=== PATIENT | female | born 1950 | race Caucasian/White ===

== ENCOUNTER → 2017-10-05 13:52 | Outpatient (CLI) | payer MEDICARE, OTHER, SELFPAY ==
--- NOTE | 2017-10-05 | DI.MG.S_ITS ---
UNILATERAL RIGHT DIGITAL DIAGNOSTIC MAMMOGRAM 3D/2D WITH ADDITIONAL VIEWS: 10/05/2017 CLINICAL: Additional evaluation requested from prior study. Comparison is made to exams dated: 09/22/2017 mammogram, 09/20/2016 mammogram, and 09/19/2015 mammogram - [facility]. The tissue of the right breast is extremely dense, which lowers the sensitivity of mammography. There is a benign architectural distortion in the right breast middle depth lateral region seen on the craniocaudal view only. This is not seen in additional views. No other significant masses or calcifications are seen in the breast. IMPRESSION: BENIGN There is no mammographic evidence of malignancy. A 1 year screening mammogram is recommended. This exam was interpreted at Station ID: [id number]. NOTE: For mammograms, a report in lay terms will be sent to the patient. Approximately 15% of breast malignancies will not be visualized mammographically. In the management of a palpable breast mass, a negative mammogram must not discourage biopsy of a clinically suspicious lesion. Electronically Signed By: Jacob salcedo/anup:10/05/2017 14:28:40 letter sent: Normal Exam ACR BI-RADS Category 2: Benign Finding(s) [id number]
== END ==
PROVIDERS: Family Provider Family Medicine; PCP Family Medicine; Visit Provider Family Medicine
DX: R92.2 Inconclusive mammogram (principal)
CPT/HCPCS: 77065; G0279

== ENCOUNTER 2017-12-06 08:15 | Outpatient (RCR) | payer MEDICARE, OTHER, SELFPAY ==
--- NOTE | 2017-09-19 16:06 | PT.OTN ---
Transition note: On September 13, 2017 our therapy services consisting of Speech, Occupational, and Physical Therapy transitioned from the [employer] electronic documentation system to a new [employer] electronic documentation system.?? All documentation prior to September 13 can be found under [employer] saved data. From September 13 forward all medical record documentation will be in [employer] 6.1. Current Diagnoses Low back pain (09/19/17
--- NOTE | 2017-09-20 08:37 | PT.OIE ---
Current Diagnoses Low back pain (09/19/17) Physical Therapy Initial Evaluation PT-OP-A Visit Information Start: 09/19/17 07:25 Freq: Status: Active Protocol: Activity Type Activity Date Activity User E-Sign Co-Sign Detail Recorded Client Recorded Date Recorded By Document 09/19/17 09:42 [facility] [id number] 09/19/17 09:43 [facility] 09/19/17 09:42 Out-Patient Physical Therapy Visit Information [Visit Information] -Visit Type Initial Evaluation -Visit Start Time 09:05 -Visit Stop Time 09:55 -Total Visit Minutes 55 -Visit Number 1 -Number of LIQUEFACTION PLANT OPERATOR Visits 0 [Evaluation Information] -Evaluation Date 09/19/17 PT-OP-B Current Condition Start: 09/19/17 07:25 Freq: Status: Active Protocol: Activity Type Activity Date Activity User E-Sign Co-Sign Detail Recorded Client Recorded Date Recorded By Document 09/19/17 09:00 [facility] [email or web address] 09/20/17 08:32 [facility] 09/19/17 09:00 Current Condition [History of Current Condition] -Onset Date 2.5 months ago -Current Complaints LBP pain around LS region -History of Current Condition gradual onset with aching on and off. She got a X-ray, which showed arthrtis and has found tylenol arthritis helps . hx of R hip bursitis -Prior Treatments and Tests X-ray [Treatment Goals] -Patient/Caregiver Goals increase flexibility & dec pain [Prior Functional Status] -Baseline Function- Gait walks about 2 miles a day without pain [Current Functional Impairments ( Reported)] -Functional Limitations- Mobility/Gait Pain at end of day with walks and sometimes avoids walking d/t pain PT-OP-C Subjective Start: 09/19/17 07:25 Freq: Status: Active Protocol: Activity Type Activity Date Activity User E-Sign Co-Sign Detail Recorded Client Recorded Date Recorded By Document 09/19/17 09:32 [facility] [email or web address] 09/20/17 08:36 [facility] 09/19/17 09:32 Patient Questionnaires [Oswestry Low Back Index] -Oswestry Impairment 1 to 19% Impaired (Score 1-19) OP-PT Pain Assessment [Pain Assessment Grid] -Paper Pain Assessment Grid Completed Yes [Location] Bilateral Back -Pain Location Details LS region -Intensity 4 -Description- Other 5/10 at worst -Pain Aggravating Factors Standing Sitting Walking -Other Pain Aggravating Factors aches at night when trying to sleep -Pain Alleviating Factors Heat Medication Massage [Home Pain Medication Use] -Pain Medications Used Yes: Tylenol Arthritis PT-OP-G Mobility & Gait Start: 09/19/17 07:25 Freq: Status: Active Protocol: Activity Type Activity Date Activity User E-Sign Co-Sign Detail Recorded Client Recorded Date Recorded By Document 09/19/17 09:09 [facility] [id number] 09/19/17 09:38 [facility] 09/19/17 09:09 OP Gait Assessment [Comments] -Gait Comments Dec post depression R side & ant elevation L PT-OP-J Posture/Palpation/Skin Start: 09/20/17 08:32 Freq: Status: Active Protocol: Activity Type Activity Date Activity User E-Sign Co-Sign Detail Recorded Client Recorded Date Recorded By Document 09/19/17 09:32 [facility] [email or web address] 09/20/17 08:36 [facility] 09/19/17 09:32 Posture Evaluation [Comments] -Posture Comments Locked knees creating hinging at LS spine & TL junction mildly , mild fwd head /shoulders Palpation Assessment [Location] One -Palpation Location Lumbar -Palpation Findings Soft Tissue Tightness Tenderness -Palpation Details QL & ES & glutes PT-OP-K Range of Motion Start: 09/19/17 07:25 Freq: Status: Active Protocol: Activity Type Activity Date Activity User E-Sign Co-Sign Detail Recorded Client Recorded Date Recorded By Document 09/19/17 09:09 [facility] [id number] 09/19/17 09:38 [facility] 09/19/17 09:09 Lumbar Spine Range of Motion [Lumbar Spine] Active Degrees -Testing Position Sitting -Flexion 70 -Extension 25 -Rotation Left 30 -Rotation Right 30 -Lateral Flexion Left 25 -Lateral Flexion Right 25 PT-OP-L Special Tests Start: 09/19/17 07:25 Freq: Status: Active Protocol: Activity Type Activity Date Activity User E-Sign Co-Sign Detail Recorded Client Recorded Date Recorded By Document 09/19/17 09:09 [facility] [id number] 09/19/17 09:38 [facility] 09/19/17 09:09 Special Tests [Lumbar Spine Special Tests] Other- 1 -Test Results 2/5 -Comments EFT Vertical Spine Loading -Test Results 1/5 -Comments VCT Straight Leg Raise -Test Results HS tightness (B ) Slump -Test Results neg -Comments ext sit neg PT-OP-M Strength Start: 09/19/17 07:25 Freq: Status: Active Protocol: Activity Type Activity Date Activity User E-Sign Co-Sign Detail Recorded Client Recorded Date Recorded By Document 09/19/17 09:09 [facility] [id number] 09/19/17 09:38 [facility] 09/19/17 09:09 Hip Strength [Hip Manual Muscle Testing] Right -Flexion (L2) 4+ Good+ -Extension (S1) 4- Good- -Abduction 4- Good- -External Rotation 4 Good -Internal Rotation 4+ Good+ -Comments knee &ankle WNL (B) Left -Flexion (L2) 4 Good -Abduction 4 Good -Adduction 4- Good- -External Rotation 4+ Good+ -Internal Rotation 4+ Good+ PT-OP-Q Treatments Start: 09/19/17 07:25 Freq: Status: Active Protocol: Activity Type Activity Date Activity User E-Sign Co-Sign Detail Recorded Client Recorded Date Recorded By Document 09/19/17 09:00 [facility] [email or web address] 09/20/17 08:32 [facility] 09/19/17 09:00 Therapeutic Exercises [Supine Exercises] 4 -Supine Exercise Name piriformis stretch -Side bilateral -Reps/Minutes 30 sec 3 -Supine Exercise Name B hip flex w/ iso UE press ( flex abdominal series) -Reps/Minutes 20 sec 2 -Supine Exercise Name Josiah test stretch -Side bilateral -Reps/Minutes 30 sec 1 -Supine Exercise Name HS stretch -Side bilateral -Reps/Minutes 30 sec Self-Care/Home Management Treatment [Activities] -Self-Care/Home Management Activities unlock knees in standing to prevent LS ext PT-OP-R Modalities Start: 09/19/17 07:25 Freq: Status: Active Protocol: Activity Type Activity Date Activity User E-Sign Co-Sign Detail Recorded Client Recorded Date Recorded By Document 09/19/17 09:00 [facility] [email or web address] 09/20/17 08:32 [facility] 09/19/17 09:00 Hot Pack/Cold Pack [Treatment] Hot Pack -Location lumbar -Patient Position Hooklying -Treatment Duration (minutes) 15 PT-OP-T Assessment and Plan Start: 09/19/17 07:25 Freq: Status: Active Protocol: Activity Type Activity Date Activity User E-Sign Co-Sign Detail Recorded Client Recorded Date Recorded By Document 09/19/17 09:00 [facility] [email or web address] 09/20/17 08:32 [facility] 09/19/17 09:00 Physical Therapy Assessment [Rehab Potential] -Rehabilitation Potential Excellent [Evaluation Complexity] -Number of Personal Factors/ 1-2 Comorbidities -Number of Body Systems Impaired 4 or More -Clinical Presentation at Evaluation Stable [Impairments] -Impairments Pain Posture Soft Tissue Mobility Strength [Goals] Four -Impairment LE strength -Packaging Assembler Goal (LTG) Pt will have 5/ 5 strength to allow pt to do all normal daily activities without pain. -LTG Duration 2 months Three -Impairment pain at worst 5 /10 -Short Term Goal (STG) 3/10 at worst -STG Duration 4 weeks -Packaging Assembler Goal (LTG) 0/10 -LTG Duration 2 months Two -Impairment posture -Short Term Goal (STG) Pt will present with good seated and standing posture. -STG Duration 4 weeks One -Impairment unable to sit or stand extended or walk extended or when trying to sleep -Short Term Goal (STG) No pain when trying to sleep -STG Duration 4 weeks -Intermediate Goal (LTG) Pt will be able to stand, sit and walk exteded without pain. -LTG Duration 2 months Physical Therapy Plan [Frequency and Duration] -Frequency of Treatment 2x/Week -Duration of Treatment 60 -Plan of Care Start Date 09/19/17 -Plan of Care End Date 11/19/17 [Therapeutic Interventions] -Therapeutic Interventions Aquatic Therapy Balance Training Gait Training Home Exercise Program Joint Mobilizations Manual Therapy Self-Care/Home Management Soft Tissue Mobilization Taping Therapeutic Exercises -Modalities Cold Pack/Ice Massage Electric Stimulation Hot Packs Traction- Mechanical Ultrasound [Next Visit Focus/Plan] -Next Visit Plan Supine core stability exercises & STM to lumbar region. Provider Signature Date
--- NOTE | 2017-09-20 08:38 | PT.OPPOC ---
Current Diagnoses Low back pain (09/19/17) Plan Of Care PT-OP-T Assessment and Plan Start: 09/19/17 07:25 Freq: Status: Active Protocol: Activity Type Activity Date Activity User E-Sign Co-Sign Detail Recorded Client Recorded Date Recorded By Document 09/19/17 09:00 [facility] [email or web address] 09/20/17 08:32 [facility] 09/19/17 09:00 Physical Therapy Assessment [Rehab Potential] -Rehabilitation Potential Excellent [Evaluation Complexity] -Number of Personal Factors/ 1-2 Comorbidities -Number of Body Systems Impaired 4 or More -Clinical Presentation at Evaluation Stable [Impairments] -Impairments Pain Posture Soft Tissue Mobility Strength [Goals] Four -Impairment LE strength -Sheet Metal Shop Foreman Goal (LTG) Pt will have 5/ 5 strength to allow pt to do all normal daily activities without pain. -LTG Duration 2 months Three -Impairment pain at worst 5 /10 -Short Term Goal (STG) 3/10 at worst -STG Duration 4 weeks -Sheet Metal Shop Foreman Goal (LTG) 0/10 -LTG Duration 2 months Two -Impairment posture -Short Term Goal (STG) Pt will present with good seated and standing posture. -STG Duration 4 weeks One -Impairment unable to sit or stand extended or walk extended or when trying to sleep -Short Term Goal (STG) No pain when trying to sleep -STG Duration 4 weeks -Sheet Metal Shop Foreman Goal (LTG) Pt will be able to stand, sit and walk exteded without pain. -LTG Duration 2 months Physical Therapy Plan [Frequency and Duration] -Frequency of Treatment 2x/Week -Duration of Treatment 60 -Plan of Care Start Date 09/19/17 -Plan of Care End Date 11/19/17 [Therapeutic Interventions] -Therapeutic Interventions Aquatic Therapy Balance Training Gait Training Home Exercise Program Joint Mobilizations Manual Therapy Self-Care/Home Management Soft Tissue Mobilization Taping Therapeutic Exercises -Modalities Cold Pack/Ice Massage Electric Stimulation Hot Packs Traction- Mechanical Ultrasound [Next Visit Focus/Plan] -Next Visit Plan Supine core stability exercises & STM to lumbar region. Plan of Care Dates Plan of Care Start Date 09/19/17 Plan of Care End Date 11/19/17 Provider Visit Care Team Role Provider Type Billie Echeverria MD Attending Provider Physician Family Provider Primary Care Provider Specialty: Family Practice Address: [address] [place] [address], [phone] Email: Please Sign and Return: I have reviewed this Plan of Care and certify that the skilled therapy services above are required to meet the patient???s needs. Physician Signature Date Printed Name and Credentials
--- NOTE | 2017-09-26 10:33 | PT.OTN ---
Current Diagnoses Low back pain (09/26/17) Physical Therapy Treatment Note PT-OP-A Visit Information Start: 09/19/17 07:25 Freq: Status: Active Protocol: Document 09/26/17 09:48 [facility] (Rec: 09/26/17 10:32 [facility] [id number]) Out-Patient Physical Therapy Visit Information Visit Information Visit Type Treatment Note Visit Start Time 09:45 Visit Stop Time 10:30 Total Visit Minutes 45 Visit Number 2 Number of CORROSION TECHNICIAN Visits 0 PT-OP-B Current Condition Start: 09/19/17 07:25 Freq: Status: Active Protocol: Document 09/19/17 09:00 [facility] (Rec: 09/20/17 08:32 [facility] [id number]) Current Condition History of Current Condition Onset Date 2.5 months ago Current Complaints LBP pain around LS region History of Current Condition gradual onset with aching on and off. She got a X-ray, which showed arthrtis and has found tylenol arthritis helps. hx of R hip bursitis Prior Treatments and Tests X-ray Treatment Goals Patient/Caregiver Goals increase flexibility & dec pain Prior Functional Status Baseline Function- Gait walks about 2 miles a day without pain Current Functional Impairments (Reported) Functional Limitations- Mobility/Gait Pain at end of day with walks and sometimes avoids walking d /t pain PT-OP-C Subjective Start: 09/19/17 07:25 Freq: Status: Active Protocol: Document 09/26/17 09:48 [facility] (Rec: 09/26/17 10:32 [facility] [id number]) OP-PT Subjective Patient Comments Patient Comments Pt reports she has not had to take any pain meds in past week. Notes compliance w/HEP. PT-OP-G Mobility & Gait Start: 09/19/17 07:25 Freq: Status: Active Protocol: Document 09/19/17 09:09 [facility] (Rec: 09/19/17 09:38 [facility] [id number]) OP Gait Assessment Comments Gait Comments Dec post depression R side & ant elevation L PT-OP-J Posture/Palpation/Skin Start: 09/20/17 08:32 Freq: Status: Active Protocol: Document 09/19/17 09:32 [facility] (Rec: 09/20/17 08:36 [facility] [email or web address]) Posture Evaluation Comments Posture Comments Locked knees creating hinging at LS spine & TL junction mildly, mild fwd head/ shoulders Palpation Assessment Location One Palpation Location Lumbar Palpation Findings Soft Tissue Tightness Tenderness Palpation Details QL & ES & glutes PT-OP-K Range of Motion Start: 09/19/17 07:25 Freq: Status: Active Protocol: Document 09/19/17 09:09 [facility] (Rec: 09/19/17 09:38 [facility] [id number]) Lumbar Spine Range of Motion Lumbar Spine Active Degrees Testing Position Sitting Flexion 70 Extension 25 Rotation Left 30 Rotation Right 30 Lateral Flexion Left 25 Lateral Flexion Right 25 PT-OP-L Special Tests Start: 09/19/17 07:25 Freq: Status: Active Protocol: Document 09/19/17 09:09 [facility] (Rec: 09/19/17 09:38 [facility] [id number]) Special Tests Lumbar Spine Special Tests Other- 1 Test Results 2/5 Comments EFT Vertical Spine Loading Test Results 1/5 Comments VCT Straight Leg Raise Test Results HS tightness (B) Slump Test Results neg Comments ext sit neg PT-OP-M Strength Start: 09/19/17 07:25 Freq: Status: Active Protocol: Document 09/19/17 09:09 [facility] (Rec: 09/19/17 09:38 [facility] [id number]) Hip Strength Hip Manual Muscle Testing Right Flexion (L2) 4+ Good+ Extension (S1) 4- Good- Abduction 4- Good- External Rotation 4 Good Internal Rotation 4+ Good+ Comments knee &ankle WNL (B) Left Flexion (L2) 4 Good Abduction 4 Good Adduction 4- Good- External Rotation 4+ Good+ Internal Rotation 4+ Good+ PT-OP-Q Treatments Start: 09/19/17 07:25 Freq: Status: Active Protocol: Document 09/26/17 09:48 [facility] (Rec: 09/26/17 10:32 [facility] [id number]) Therapeutic Exercises Supine Exercises 6 Supine Exercise Name bridge w/o arms Reps/Minutes 2x10 5 Supine Exercise Name scissor bent knee Reps/Minutes 2x10 3 Supine Exercise Name B hip flex w/iso UE press ( flex abdominal series) Reps/Minutes 20 sec Sidelying Exercises 1 Sidelying Exercise Name hip abd Reps/Minutes 2x10 Standing Exercises 2 Standing Exercise Name wall posture w/90/90ER Reps/Minutes 10 1 Standing Exercise Name wall squat Reps/Minutes 2x10 Manual Therapy Treatment Soft Tissue Mobilization 1 Body Location QL & ES Mobilization Type Rolling Intensity/Depth Moderate Joint Mobilizations 3 Joint innominate Direction caudal L & ER B FM 2 Joint sacrum Direction PA & caudal FM 1 Joint hip Direction hip on axis ER FM L PT-OP-R Modalities Start: 09/19/17 07:25 Freq: Status: Active Protocol: Document 09/19/17 09:00 [facility] (Rec: 09/20/17 08:32 [facility] [id number]) Hot Pack/Cold Pack Treatment Hot Pack Location lumbar Patient Position Hooklying Treatment Duration (minutes) 15 PT-OP-T Assessment and Plan Start: 09/19/17 07:25 Freq: Status: Active Protocol: Document 09/26/17 09:48 [facility] (Rec: 09/26/17 10:32 [facility] [id number]) Physical Therapy Assessment Assessment Summary Assessment Pt able to tolerate new exercises with cueing for pelvic neutral & maintaining neutral spine. Reported mobilizations felt good. Physical Therapy Plan Frequency and Duration Frequency of Treatment 2x/Week Plan of Care Start Date 09/19/17 Plan of Care End Date 11/19/17 Next Visit Focus/Plan Next Visit Plan Cont to advance core
--- NOTE | 2017-09-29 10:32 | PT.OTN ---
Current Diagnoses Low back pain (09/29/17) Physical Therapy Treatment Note PT-OP-A Visit Information Start: 09/19/17 07:25 Freq: Status: Active Protocol: Document 09/29/17 09:46 [facility] (Rec: 09/29/17 10:32 [facility] [id number]) Out-Patient Physical Therapy Visit Information Visit Information Visit Type Treatment Note Visit Start Time 09:45 Visit Stop Time 10:30 Total Visit Minutes 45 Visit Number 3 Number of DEDICATED OWNER OPERATOR Visits 0 PT-OP-B Current Condition Start: 09/19/17 07:25 Freq: Status: Active Protocol: Document 09/19/17 09:00 [facility] (Rec: 09/20/17 08:32 [facility] [id number]) Current Condition History of Current Condition Onset Date 2.5 months ago Current Complaints LBP pain around LS region History of Current Condition gradual onset with aching on and off. She got a X-ray, which showed arthrtis and has found tylenol arthritis helps. hx of R hip bursitis Prior Treatments and Tests X-ray Treatment Goals Patient/Caregiver Goals increase flexibility & dec pain Prior Functional Status Baseline Function- Gait walks about 2 miles a day without pain Current Functional Impairments (Reported) Functional Limitations- Mobility/Gait Pain at end of day with walks and sometimes avoids walking d /t pain PT-OP-C Subjective Start: 09/19/17 07:25 Freq: Status: Active Protocol: Document 09/29/17 09:46 [facility] (Rec: 09/29/17 10:32 [facility] [id number]) OP-PT Subjective Patient Comments Patient Comments Soreness after last session & yesterday w/ 2 mile walk & gardening yesterday PT-OP-G Mobility & Gait Start: 09/19/17 07:25 Freq: Status: Active Protocol: Document 09/19/17 09:09 [facility] (Rec: 09/19/17 09:38 [facility] [id number]) OP Gait Assessment Comments Gait Comments Dec post depression R side & ant elevation L PT-OP-J Posture/Palpation/Skin Start: 09/20/17 08:32 Freq: Status: Active Protocol: Document 09/19/17 09:32 [facility] (Rec: 09/20/17 08:36 [facility] [id number]) Posture Evaluation Comments Posture Comments Locked knees creating hinging at LS spine & TL junction mildly, mild fwd head/ shoulders Palpation Assessment Location One Palpation Location Lumbar Palpation Findings Soft Tissue Tightness Tenderness Palpation Details QL & ES & glutes PT-OP-K Range of Motion Start: 09/19/17 07:25 Freq: Status: Active Protocol: Document 09/19/17 09:09 [facility] (Rec: 09/19/17 09:38 [facility] [id number]) Lumbar Spine Range of Motion Lumbar Spine Active Degrees Testing Position Sitting Flexion 70 Extension 25 Rotation Left 30 Rotation Right 30 Lateral Flexion Left 25 Lateral Flexion Right 25 PT-OP-L Special Tests Start: 09/19/17 07:25 Freq: Status: Active Protocol: Document 09/19/17 09:09 [facility] (Rec: 09/19/17 09:38 [facility] [id number]) Special Tests Lumbar Spine Special Tests Other- 1 Test Results 2/5 Comments EFT Vertical Spine Loading Test Results 1/5 Comments VCT Straight Leg Raise Test Results HS tightness (B) Slump Test Results neg Comments ext sit neg PT-OP-M Strength Start: 09/19/17 07:25 Freq: Status: Active Protocol: Document 09/19/17 09:09 [facility] (Rec: 09/19/17 09:38 [facility] [id number]) Hip Strength Hip Manual Muscle Testing Right Flexion (L2) 4+ Good+ Extension (S1) 4- Good- Abduction 4- Good- External Rotation 4 Good Internal Rotation 4+ Good+ Comments knee &ankle WNL (B) Left Flexion (L2) 4 Good Abduction 4 Good Adduction 4- Good- External Rotation 4+ Good+ Internal Rotation 4+ Good+ PT-OP-Q Treatments Start: 09/19/17 07:25 Freq: Status: Active Protocol: Document 09/29/17 09:46 [facility] (Rec: 09/29/17 10:32 [facility] [id number]) Therapeutic Exercises Supine Exercises 6 Supine Exercise Name bridge with alt LE march Reps/Minutes 2x10 5 Supine Exercise Name scissor bent knee Reps/Minutes 2x10 3 Supine Exercise Name B hip flex w/iso UE press ( flex abdominal series) Reps/Minutes 20 sec Sidelying Exercises 1 Sidelying Exercise Name hip abd Reps/Minutes 2x10 Standing Exercises 3 Standing Exercise Name squat Reps/Minutes 2x10 Comments cues for form 2 Standing Exercise Name wall posture w/90/90ER Reps/Minutes 10 Therapeutic Activity Therapeutic Activity 1 Comments Lifting mechanics w/min cueing required Manual Therapy Treatment Soft Tissue Mobilization 1 Body Location QL & ES Mobilization Type Rolling Intensity/Depth Moderate Joint Mobilizations 3 Joint innominate Direction caudal L & ER & ext B FM 2 Joint sacrum Direction PA & caudal FM PT-OP-R Modalities Start: 09/19/17 07:25 Freq: Status: Active Protocol: Document 09/29/17 09:46 [facility] (Rec: 09/29/17 10:32 [facility] [id number]) Hot Pack/Cold Pack Treatment Hot Pack Location lumbar Patient Position Hooklying Treatment Duration (minutes) 15 PT-OP-T Assessment and Plan Start: 09/19/17 07:25 Freq: Status: Active Protocol: Document 09/29/17 09:46 [facility] (Rec: 09/29/17 10:32 [facility] [id number]) Physical Therapy Assessment Assessment Summary Assessment Pt required min cueing for s/l abd and wall posture. Able to progress to marching bridges without pain. Some soreness appears to be DOMs from some exercises & gardening. Physical Therapy Plan Frequency and Duration Frequency of Treatment 2x/Week Plan of Care Start Date 09/19/17 Plan of Care End Date 11/19/17 Next Visit Focus/Plan Next Visit Plan Foam roll
--- NOTE | 2017-10-03 11:18 | PT.OTN ---
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 She got a X-ray, which showed arthrtis and has found tylenol arthritis helps. hx of R hip bursitis Prior Treatments and Tests X-ray Treatment Goals Patient/Caregiver Goals increase flexibility & dec pain Prior Functional Status Baseline Function- Gait walks about 2 miles a day without pain Current Functional Impairments (Reported) Functional Limitations- Mobility/Gait Pain at end of day with walks and sometimes avoids walking d /t pain PT-OP-C Subjective Start: 09/19/17 07:25 Freq: Status: Active Protocol: Document 10/03/17 10:36 [facility] (Rec: 10/03/17 11:18 [facility] [id number]) OP-PT Subjective Patient Comments Patient Comments Pt reports she was sore for about 1 day after last session PT-OP-G Mobility & Gait Start: 09/19/17 07:25 Freq: Status: Active Protocol: Document 09/19/17 09:09 [facility] (Rec: 09/19/17 09:38 [facility] [id number]) OP Gait Assessment Comments Gait Comments Dec post depression R side & ant elevation L PT-OP-J Posture/Palpation/Skin Start: 09/20/17 08:32 Freq: Status: Active Protocol: Document 09/19/17 09:32 [facility] (Rec: 09/20/17 08:36 [facility] [id number]) Posture Evaluation Comments Posture Comments Locked knees creating hinging at LS spine & TL junction mildly, mild fwd head/ shoulders Palpation Assessment Location One Palpation Location Lumbar Palpation Findings Soft Tissue Tightness Tenderness Palpation Details QL & ES & glutes PT-OP-K Range of Motion Start: 09/19/17 07:25 Freq: Status: Active Protocol: Document 09/19/17 09:09 [facility] (Rec: 09/19/17 09:38 [facility] [id number]) Lumbar Spine Range of Motion Lumbar Spine Active Degrees Testing Position Sitting Flexion 70 Extension 25 Rotation Left 30 Rotation Right 30 Lateral Flexion Left 25 Lateral Flexion Right 25 PT-OP-L Special Tests Start: 09/19/17 07:25 Freq: Status: Active Protocol: Document 09/19/17 09:09 [facility] (Rec: 09/19/17 09:38 [facility] [id number]) Special Tests Lumbar Spine Special Tests Other- 1 Test Results 2/5 Comments EFT Vertical Spine Loading Test Results 1/5 Comments VCT Straight Leg Raise Test Results HS tightness (B) Slump Test Results neg Comments ext sit neg PT-OP-M Strength Start: 09/19/17 07:25 Freq: Status: Active Protocol: Document 09/19/17 09:09 [facility] (Rec: 09/19/17 09:38 [facility] [id number]) Hip Strength Hip Manual Muscle Testing Right Flexion (L2) 4+ Good+ Extension (S1) 4- Good- Abduction 4- Good- External Rotation 4 Good Internal Rotation 4+ Good+ Comments knee &ankle WNL (B) Left Flexion (L2) 4 Good Abduction 4 Good Adduction 4- Good- External Rotation 4+ Good+ Internal Rotation 4+ Good+ PT-OP-Q Treatments Start: 09/19/17 07:25 Freq: Status: Active Protocol: Document 10/03/17 10:36 [facility] (Rec: 10/03/17 11:18 [facility] [id number]) Gym Equipment Therapeutic Ball 4 Exercise Details pelvic circles Ball Size/Color 65cm Body Position Sitting Reps/Duration 10 B 2 Exercise Details hip flex Ball Size/Color 65 cm Body Position Sitting Reps/Duration 10 1 Exercise Details knee ext Ball Size/Color 65 cm Body Position Sitting Therapeutic Exercises Supine Exercises 8 Supine Exercise Name foam roll marching to bugs Reps/Minutes 10 7 Supine Exercise Name foam roll: Habd, abd, flex Reps/Minutes 10 Other Exercises 1 Other Exercise Name quadruped hip ext Side bilateral Reps/Minutes 10 Comments manual cueing Manual Therapy Treatment Soft Tissue Mobilization 1 Body Location QL & ES Mobilization Type Rolling Intensity/Depth Moderate Joint Mobilizations 3 Joint innominate Direction caudal L & ER & ext B FM 2 Joint sacrum Direction PA & caudal FM 1 Joint hip Direction hip on axis ER FM L PT-OP-R Modalities Start: 09/19/17 07:25 Freq: Status: Active Protocol: Document 10/03/17 10:36 [facility] (Rec: 10/03/17 11:18 [facility] [id number]) Hot Pack/Cold Pack Treatment Hot Pack Location lumbar Patient Position Hooklying Treatment Duration (minutes) 15 PT-OP-T Assessment and Plan Start: 09/19/17 07:25 Freq: Status: Active Protocol: Document 10/03/17 10:36 [facility] (Rec: 10/03/17 11:18 [facility] [id number]) Physical Therapy Assessment Assessment Summary Assessment Pt required significant cueing & tactile positioning to help with proper technique with quadruped ext. Pt had difficulty balancing on foam roll for exercises. Improved soft tissue mobility in LS region. Physical Therapy Plan Frequency and Duration Frequency of Treatment 2x/Week Plan of Care Start Date 09/19/17 Plan of Care End Date 11/19/17 Next Visit Focus/Plan Next Visit Plan Advance core Please Sign and Return: I have reviewed this Plan of Care and certify that the skilled therapy services above are required to meet the patient???s needs. Physician Signature Date Printed Name and Credentials Clinical Instructor Signature Printed Name and Credentials
--- NOTE | 2017-10-13 09:50 | PT.OTN ---
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 She got a X-ray, which showed arthrtis and has found tylenol arthritis helps. hx of R hip bursitis Prior Treatments and Tests X-ray Treatment Goals Patient/Caregiver Goals increase flexibility & dec pain Prior Functional Status Baseline Function- Gait walks about 2 miles a day without pain Current Functional Impairments (Reported) Functional Limitations- Mobility/Gait Pain at end of day with walks and sometimes avoids walking d /t pain PT-OP-C Subjective Start: 09/19/17 07:25 Freq: Status: Active Protocol: Document 10/13/17 09:01 [facility] (Rec: 10/13/17 09:50 [facility] [id number]) OP-PT Subjective Patient Comments Patient Comments Reports she has only had to take tylenol once this week. Reports she went to spin class and did walking that day. PT-OP-G Mobility & Gait Start: 09/19/17 07:25 Freq: Status: Active Protocol: Document 09/19/17 09:09 [facility] (Rec: 09/19/17 09:38 [facility] [id number]) OP Gait Assessment Comments Gait Comments Dec post depression R side & ant elevation L PT-OP-J Posture/Palpation/Skin Start: 09/20/17 08:32 Freq: Status: Active Protocol: Document 09/19/17 09:32 [facility] (Rec: 09/20/17 08:36 [facility] [id number]) Posture Evaluation Comments Posture Comments Locked knees creating hinging at LS spine & TL junction mildly, mild fwd head/ shoulders Palpation Assessment Location One Palpation Location Lumbar Palpation Findings Soft Tissue Tightness Tenderness Palpation Details QL & ES & glutes PT-OP-K Range of Motion Start: 09/19/17 07:25 Freq: Status: Active Protocol: Document 09/19/17 09:09 [facility] (Rec: 09/19/17 09:38 [facility] [id number]) Lumbar Spine Range of Motion Lumbar Spine Active Degrees Testing Position Sitting Flexion 70 Extension 25 Rotation Left 30 Rotation Right 30 Lateral Flexion Left 25 Lateral Flexion Right 25 PT-OP-L Special Tests Start: 09/19/17 07:25 Freq: Status: Active Protocol: Document 09/19/17 09:09 [facility] (Rec: 09/19/17 09:38 [facility] [id number]) Special Tests Lumbar Spine Special Tests Other- 1 Test Results 2/5 Comments EFT Vertical Spine Loading Test Results 1/5 Comments VCT Straight Leg Raise Test Results HS tightness (B) Slump Test Results neg Comments ext sit neg PT-OP-M Strength Start: 09/19/17 07:25 Freq: Status: Active Protocol: Document 09/19/17 09:09 [facility] (Rec: 09/19/17 09:38 [facility] [id number]) Hip Strength Hip Manual Muscle Testing Right Flexion (L2) 4+ Good+ Extension (S1) 4- Good- Abduction 4- Good- External Rotation 4 Good Internal Rotation 4+ Good+ Comments knee &ankle WNL (B) Left Flexion (L2) 4 Good Abduction 4 Good Adduction 4- Good- External Rotation 4+ Good+ Internal Rotation 4+ Good+ PT-OP-Q Treatments Start: 09/19/17 07:25 Freq: Status: Active Protocol: Document 10/13/17 09:01 [facility] (Rec: 10/13/17 09:50 [facility] [id number]) Gym Equipment Therapeutic Ball 4 Exercise Details pelvic circles Ball Size/Color 65cm Body Position Sitting Reps/Duration 10 B 2 Exercise Details hip flex w/alt shoulder flex Ball Size/Color 65 cm Body Position Sitting Reps/Duration 10 1 Exercise Details knee ext Ball Size/Color 65 cm Body Position Sitting Comments w/shoulders at 90 deg Therapeutic Exercises Supine Exercises 8 Supine Exercise Name foam roll marching to bugs Reps/Minutes 10 7 Supine Exercise Name foam roll: Habd, abd, flex Reps/Minutes 10 Other Exercises 2 Other Exercise Name Alt UE/LE lifts quadruped Reps/Minutes 10 1 Other Exercise Name quadruped hip ext Side bilateral Reps/Minutes 10 Comments manual cueing Manual Therapy Treatment Soft Tissue Mobilization 1 Body Location QL & ES Mobilization Type Rolling Intensity/Depth Moderate Joint Mobilizations 3 Joint innominate Direction caudal L & ER & ext B FM 2 Joint sacrum Direction PA & caudal FM 1 Joint hip Direction hip on axis ER FM L PT-OP-R Modalities Start: 09/19/17 07:25 Freq: Status: Active Protocol: Document 10/13/17 09:01 [facility] (Rec: 10/13/17 09:50 [facility] [id number]) Hot Pack/Cold Pack Treatment Hot Pack Location lumbar Patient Position Hooklying Treatment Duration (minutes) 15 PT-OP-T Assessment and Plan Start: 09/19/17 07:25 Freq: Status: Active Protocol: Document 10/13/17 09:01 [facility] (Rec: 10/13/17 09:50 [facility] [id number]) Physical Therapy Assessment Assessment Summary Assessment Pt had improved positioning today on ball and quadruped. Still diffiulty with balance on foam roll Physical Therapy Plan Frequency and Duration Frequency of Treatment 2x/Week Plan of Care Start Date 09/19/17 Plan of Care End Date 11/19/17 Next Visit Focus/Plan Next Note Type Treatment Note Next Visit Plan Advance core Please Sign and Return: I have reviewed this Plan of Care and certify that the skilled therapy services above are required to meet the patient???s needs. Physician Signature Date Printed Name and Credentials Clinical Instructor Signature Printed Name and Credentials
--- NOTE | 2017-10-19 17:25 | PT.OTN ---
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 She got a X-ray, which showed arthrtis and has found tylenol arthritis helps. hx of R hip bursitis Prior Treatments and Tests X-ray Treatment Goals Patient/Caregiver Goals increase flexibility & dec pain Prior Functional Status Baseline Function- Gait walks about 2 miles a day without pain Current Functional Impairments (Reported) Functional Limitations- Mobility/Gait Pain at end of day with walks and sometimes avoids walking d /t pain PT-OP-C Subjective Start: 09/19/17 07:25 Freq: Status: Active Protocol: Document 10/19/17 10:30 [facility] (Rec: 10/19/17 17:23 [facility] [id number]) OP-PT Subjective Patient Comments Patient Comments Reports she is noticing feeling in general fatigued in the evening. PT-OP-G Mobility & Gait Start: 09/19/17 07:25 Freq: Status: Active Protocol: Document 09/19/17 09:09 [facility] (Rec: 09/19/17 09:38 [facility] [id number]) OP Gait Assessment Comments Gait Comments Dec post depression R side & ant elevation L PT-OP-J Posture/Palpation/Skin Start: 09/20/17 08:32 Freq: Status: Active Protocol: Document 09/19/17 09:32 [facility] (Rec: 09/20/17 08:36 [facility] [id number]) Posture Evaluation Comments Posture Comments Locked knees creating hinging at LS spine & TL junction mildly, mild fwd head/ shoulders Palpation Assessment Location One Palpation Location Lumbar Palpation Findings Soft Tissue Tightness Tenderness Palpation Details QL & ES & glutes PT-OP-K Range of Motion Start: 09/19/17 07:25 Freq: Status: Active Protocol: Document 09/19/17 09:09 [facility] (Rec: 09/19/17 09:38 [facility] [id number]) Lumbar Spine Range of Motion Lumbar Spine Active Degrees Testing Position Sitting Flexion 70 Extension 25 Rotation Left 30 Rotation Right 30 Lateral Flexion Left 25 Lateral Flexion Right 25 PT-OP-L Special Tests Start: 09/19/17 07:25 Freq: Status: Active Protocol: Document 09/19/17 09:09 [facility] (Rec: 09/19/17 09:38 [facility] [id number]) Special Tests Lumbar Spine Special Tests Other- 1 Test Results 2/5 Comments EFT Vertical Spine Loading Test Results 1/5 Comments VCT Straight Leg Raise Test Results HS tightness (B) Slump Test Results neg Comments ext sit neg PT-OP-M Strength Start: 09/19/17 07:25 Freq: Status: Active Protocol: Document 09/19/17 09:09 [facility] (Rec: 09/19/17 09:38 [facility] [id number]) Hip Strength Hip Manual Muscle Testing Right Flexion (L2) 4+ Good+ Extension (S1) 4- Good- Abduction 4- Good- External Rotation 4 Good Internal Rotation 4+ Good+ Comments knee &ankle WNL (B) Left Flexion (L2) 4 Good Abduction 4 Good Adduction 4- Good- External Rotation 4+ Good+ Internal Rotation 4+ Good+ PT-OP-Q Treatments Start: 09/19/17 07:25 Freq: Status: Active Protocol: Document 10/19/17 10:30 [facility] (Rec: 10/19/17 17:23 [facility] [id number]) Gym Equipment Therapeutic Ball 4 Exercise Details pelvic circles Ball Size/Color 65cm Body Position Sitting Reps/Duration 10 B 2 Exercise Details hip flex w/alt shoulder flex Ball Size/Color 65 cm Body Position Sitting Reps/Duration 10 1 Exercise Details knee ext Ball Size/Color 65 cm Body Position Sitting Comments w/shoulders at 90 deg Therapeutic Exercises Standing Exercises 4 Standing Exercise Name lunges Reps/Minutes 20 Comments w/form cues 3 Standing Exercise Name squat Reps/Minutes 2x10 Comments cues for form Manual Therapy Treatment Soft Tissue Mobilization 1 Body Location QL & ES & glutes B Mobilization Type Rolling Intensity/Depth Moderate Joint Mobilizations 3 Joint innominate Direction caudal L & ER & ext B FM 2 Joint sacrum Direction PA & caudal FM 1 Joint hip Direction hip on axis ER FM L Self-Care/Home Management Treatment Education Caregiver Education Discuss with re: vitamins & tingling at nights PT-OP-R Modalities Start: 09/19/17 07:25 Freq: Status: Active Protocol: Document 10/19/17 10:30 [facility] (Rec: 10/19/17 17:24 [facility] [id number]) Hot Pack/Cold Pack Treatment Hot Pack Location lumbar Patient Position Hooklying Treatment Duration (minutes) 15 PT-OP-T Assessment and Plan Start: 09/19/17 07:25 Freq: Status: Active Protocol: Document 10/19/17 10:30 [facility] (Rec: 10/19/17 17:23 [facility] [id number]) Physical Therapy Assessment Assessment Summary Assessment Pt did better with balance on tball today. Improving mobility of soft tissue & pelvis. Pt is improving with strength, but cont to have pain with inc activity. Physical Therapy Plan Frequency and Duration Frequency of Treatment 2x/Week Plan of Care Start Date 09/19/17 Plan of Care End Date 11/19/17 Next Visit Focus/Plan Next Note Type Treatment Note Next Visit Plan Advance core Please Sign and Return: I have reviewed this Plan of Care and certify that the skilled therapy services above are required to meet the patient?s needs. Physician Signature Date Printed Name and Credentials Clinical Instructor Signature Printed Name and Credentials
--- NOTE | 2017-12-06 10:14 | PT.OTN ---
Current Diagnoses Low back pain (12/06/17) Physical Therapy Treatment Note PT-OP-A Visit Information Start: 09/19/17 07:25 Freq: Status: Active Protocol: Document 12/06/17 08:13 [facility] (Rec: 12/06/17 09:54 [facility] [id number]) Out-Patient Physical Therapy Visit Information Visit Information Visit Type Progress Note Visit Note 7 total visits Visit Start Time 08:15 Visit Stop Time 09:15 Total Visit Minutes 60 Visit Number 05/25 PT-OP-B Current Condition Start: 09/19/17 07:25 Freq: Status: Active Protocol: Document 09/19/17 09:00 [facility] (Rec: 09/20/17 08:32 [facility] [id number]) Current Condition History of Current Condition Onset Date 2.5 months ago Current Complaints LBP pain around LS region History of Current Condition gradual onset with aching on and off. She got a X-ray, which showed arthrtis and has found tylenol arthritis helps. hx of R hip bursitis Prior Treatments and Tests X-ray Treatment Goals Patient/Caregiver Goals increase flexibility & dec pain Prior Functional Status Baseline Function- Gait walks about 2 miles a day without pain Current Functional Impairments (Reported) Functional Limitations- Mobility/Gait Pain at end of day with walks and sometimes avoids walking d /t pain PT-OP-C Subjective Start: 09/19/17 07:25 Freq: Status: Active Protocol: Document 12/06/17 08:13 [facility] (Rec: 12/06/17 09:54 [facility] [id number]) OP-PT Subjective Patient Comments Patient Comments Reports overall doing well. Plan for d/c today. Patient Questionnaires Oswestry Low Back Index Oswestry Score 4 Oswestry Impairment 1 to 19% Impaired (Score 1-19) OP-PT Pain Assessment Location Bilateral Back Intensity 4 Description- Other occasional Other Pain Aggravating Factors uphill hiking extended, sitting extended, gardening extended PT-OP-G Mobility & Gait Start: 09/19/17 07:25 Freq: Status: Active Protocol: Document 09/19/17 09:09 [facility] (Rec: 09/19/17 09:38 [facility] [id number]) OP Gait Assessment Comments Gait Comments Dec post depression R side & ant elevation L PT-OP-J Posture/Palpation/Skin Start: 09/20/17 08:32 Freq: Status: Active Protocol: Document 09/19/17 09:32 [facility] (Rec: 09/20/17 08:36 [facility] [id number]) Posture Evaluation Comments Posture Comments Locked knees creating hinging at LS spine & TL junction mildly, mild fwd head/ shoulders Palpation Assessment Location One Palpation Location Lumbar Palpation Findings Soft Tissue Tightness Tenderness Palpation Details QL & ES & glutes PT-OP-K Range of Motion Start: 09/19/17 07:25 Freq: Status: Active Protocol: Document 12/06/17 08:13 [facility] (Rec: 12/06/17 09:54 [facility] [id number]) Lumbar Spine Range of Motion Lumbar Spine Active Degrees Comments ALL WNL PT-OP-L Special Tests Start: 09/19/17 07:25 Freq: Status: Active Protocol: Document 09/19/17 09:09 [facility] (Rec: 09/19/17 09:38 [facility] [id number]) Special Tests Lumbar Spine Special Tests Other- 1 Test Results 2/5 Comments EFT Vertical Spine Loading Test Results 1/5 Comments VCT Straight Leg Raise Test Results HS tightness (B) Slump Test Results neg Comments ext sit neg PT-OP-M Strength Start: 09/19/17 07:25 Freq: Status: Active Protocol: Document 12/06/17 08:13 [facility] (Rec: 12/06/17 09:54 [facility] [id number]) Hip Strength Hip Manual Muscle Testing Right Flexion (L2) 5 Normal Extension (S1) 4+ Good+ Abduction 4 Good External Rotation 5 Normal Internal Rotation 5 Normal Left Flexion (L2) 5 Normal Extension (S1) 5 Normal Abduction 4 Good External Rotation 5 Normal Internal Rotation 5 Normal PT-OP-Q Treatments Start: 09/19/17 07:25 Freq: Status: Active Protocol: Document 12/06/17 08:13 [facility] (Rec: 12/06/17 09:54 [facility] [id number]) Therapeutic Exercises Supine Exercises 1 Supine Exercise Name abdominal series flex & diagonal Reps/Minutes 30 sec holds Sidelying Exercises 1 Sidelying Exercise Name abd vs wall Reps/Minutes 10 Standing Exercises 4 Standing Exercise Name lunges Reps/Minutes 10 Comments w/form cues 1 Standing Exercise Name gait at wall Therapeutic Activity Therapeutic Activity 2 Name weight shift Comments up/down hills & up/down steep stairs 1 Name gardening form Comments carrying & weeding activities PT-OP-R Modalities Start: 09/19/17 07:25 Freq: Status: Active Protocol: Document 12/06/17 08:13 [facility] (Rec: 12/06/17 09:54 [facility] [id number]) Hot Pack/Cold Pack Treatment Hot Pack Location lumbar Patient Position Hooklying Treatment Duration (minutes) 15 PT-OP-T Assessment and Plan Start: 09/19/17 07:25 Freq: Status: Active Protocol: Document 12/06/17 08:13 [facility] (Rec: 12/06/17 09:54 [facility] [id number]) Physical Therapy Assessment Impairments Impairments Gait Strength Goals Four Impairment LE strength Correction Goal (LTG) Pt will have 5/5 strength to allow pt to do all normal daily activities without pain. LTG Duration 2 months- excellent improvement-HEP to cont Three Impairment pain at worst 5/10 Short Term Goal (STG) 3/10 at worst STG Duration 4 weeks-at most time no pain Cooling Tower Operator Goal (LTG) 0/10 LTG Duration 2 months- at most times no pain Two Impairment posture Short Term Goal (STG) Pt will present with good seated and standing posture. STG Duration achieved One Impairment unable to sit or stand extended or walk extended or when trying to sleep Short Term Goal (STG) No pain when trying to sleep STG Duration achieved Cooling Tower Operator Goal (LTG) Pt will be able to stand, sit and walk exteded without pain. LTG Duration achieved except hills Progress Towards Goals Progress Towards Goals Progressing Toward Goals Goals Met Assessment Summary Assessment Pt has made excellent progress and was educated how to prevent cont pain with specific activities. She is indep with HEP and is d/c at this time. Physical Therapy Plan Frequency and Duration Frequency of Treatment 1x/Week Duration of Treatment 1 week Plan of Care Start Date 12/06/17 Plan of Care End Date 12/13/17 Therapeutic Interventions Therapeutic Interventions Gait Training Home Exercise Program Therapeutic Activities Therapeutic Exercises Modalities Hot Packs Discharge Physical Therapy Discharge Reasons Goals Met Discharge Comments indep with HEP
--- NOTE | 2017-12-06 10:14 | PT.OPPOC ---
Current Diagnoses Low back pain (12/06/17) Provider Visit Care Team Role Provider Type Billie Echeverria MD Attending Provider Physician Family Provider Primary Care Provider Specialty: Family Practice Address: [address] [place] [address], [id number] Email: Plan Of Care PT-OP-T Assessment and Plan Start: 09/19/17 07:25 Freq: Status: Active Protocol: Document 12/06/17 08:13 [facility] (Rec: 12/06/17 09:54 [facility] [id number]) Physical Therapy Assessment Impairments Impairments Gait Strength Goals Four Impairment LE strength In Service Educator Goal (LTG) Pt will have 5/5 strength to allow pt to do all normal daily activities without pain. LTG Duration 2 months- excellent improvement-HEP to cont Three Impairment pain at worst 5/10 Short Term Goal (STG) 3/10 at worst STG Duration 4 weeks-at most time no pain Residential Goal (LTG) 0/10 LTG Duration 2 months- at most times no pain Two Impairment posture Short Term Goal (STG) Pt will present with good seated and standing posture. STG Duration achieved One Impairment unable to sit or stand extended or walk extended or when trying to sleep Short Term Goal (STG) No pain when trying to sleep STG Duration achieved Residential Goal (LTG) Pt will be able to stand, sit and walk exteded without pain. LTG Duration achieved except hills Progress Towards Goals Progress Towards Goals Progressing Toward Goals Goals Met Assessment Summary Assessment Pt has made excellent progress and was educated how to prevent cont pain with specific activities. She is indep with HEP and is d/c at this time. Physical Therapy Plan Frequency and Duration Frequency of Treatment 1x/Week Duration of Treatment 1 week Plan of Care Start Date 12/06/17 Plan of Care End Date 12/13/17 Therapeutic Interventions Therapeutic Interventions Gait Training Home Exercise Program Therapeutic Activities Therapeutic Exercises Modalities Hot Packs Discharge Physical Therapy Discharge Reasons Goals Met Discharge Comments indep with HEP Plan of Care Dates Plan of Care Start Date 12/06/17 Plan of Care End Date 12/13/17 Please Sign and Return: I have reviewed this Plan of Care and certify that the skilled therapy services above are required to meet the patient?s needs. Physician Signature Date Printed Name and Credentials Clinical Instructor Signature Printed Name and Credentials
== END 2018-02-01 14:14 ==
LOC: PHYS 08:15
PROVIDERS: Family Provider Family Medicine; PCP Family Medicine; Visit Provider Family Medicine
DX: M54.5 Low back pain (principal)
CPT/HCPCS: 97010; 97110; 97140; 97161; 97530

== ENCOUNTER → 2017-12-23 08:05 | Outpatient (CLI) | payer MEDICARE, OTHER, SELFPAY ==
[2017-12-23 09:32] LABS: Add Manual Diff / Slide Review NO; Eosinophils Percent Auto 2.3 % (2-4); Hematocrit 37.9 % (36-46); Hemoglobin 13.4 g/dL (12.0-16.0); Lymphocytes Percent Auto 42.7 % (25-40); Mean Corpuscular HGB Conc 35.4 % (30-36); Mean Corpuscular Volume 84.7 fL (80-100); Monocytes Percent Auto 6.7 % (3-14); Neutrophils Absolute Auto 3100 /uL (3000-5900); Neutrophils Percent Auto 47.3 % (50-75); Platelet Count 252 X10^3/uL (150-400); Red Blood Cell Count 4.48 X10^6/uL (4.0-5.2); Red Cell Distribution Width 13.8 % (11.6-14.8); White Blood Cell Count 6.6 X10^3/uL (4.5-11.0)
[2017-12-23 09:58] LABS: Alanine Aminotransferase 65 IU/L (9-52); Albumin 4.6 g/dL (3.5-5.0); Albumin Globulin Ratio 1.5 (1.0-2.8); Alkaline Phosphatase 46 U/L (38-126); Aspartate Aminotransferase 64 IU/L (14-36); BUN Creatinine Ratio 27.1 (6-22); Bilirubin Total 0.4 mg/dL (0.2-1.3); Blood Urea Nitrogen 19 mg/dL (7-17); Calcium 9.6 mg/dL (8.4-10.2); Carbon Dioxide 25 mmol/L (22-32); Chloride 105 mmol/L (98-107); Cholesterol 123 mg/dL (140-199); Estimated Glomerular Filt Rate > 60.0 mL/min (>60); Globulin 3.1 g/dL (1.7-4.1); Glucose 109 mg/dL (80-110); HDL Cholesterol 38 mg/dL (40-60); HEMOLYSIS < 15 (0-50); LDL Cholesterol Calculated 39 mg/dL (<100); Sodium 141 mmol/L (137-145); Total Protein 7.7 g/dL (6.3-8.2); Triglycerides 228 mg/dL (35-150)
[2017-12-23 10:11] LABS: Free T4, Direct Thyroxine 1.15 ng/dL (0.78-2.19)
[2017-12-23 10:24] LABS: Thyroid Stimulating Hormone 1.09 uIU/mL (0.47-4.68)
[2017-12-23 10:49] LABS: Hep C Virus Ab w/Reflex Quant NEGATIVE s/c (NEGATIVE)
== END ==
PROVIDERS: Family Provider Family Medicine; PCP Family Medicine; Visit Provider Family Medicine
DX: E03.9 Hypothyroidism, unspecified (principal); Z00.00 Encounter for general adult medical examination without abnormal findings
CPT/HCPCS: 36415; 80053; 80061; 84439; 84443; 85025; 86803

== ENCOUNTER → 2018-01-03 10:46 | Outpatient (CLI) | payer MEDICARE, OTHER, SELFPAY ==
--- NOTE | 2018-01-03 | DI.US.S_ITS ---
PROCEDURE: US ABDOMEN COMPLETE INDICATIONS: ELEVATED LIVER ENZYMES TECHNIQUE: Real-time scanning was performed of the abdominal and retroperitoneal organs, with image documentation. COMPARISON: [facility], CT, IVP (ABD & PEL WWO CONTRAST), 06/10/2015, 9:57. FINDINGS: Liver: Liver is diffusely increased in echogenicity. No focal hepatic abnormalities identified. Normal hepatic size. Gallbladder: Surgically absent. Biliary ducts: Intrahepatic bile ducts are non-dilated. Extrahepatic bile duct caliber measures 7.1 mm. Normal is 6-7 mm or less in diameter, or 10 mm or less post-cholecystectomy. Pancreas: Visualized portions of the pancreas are sonographically normal. Spleen: Spleen is normal in size and homogeneous in echotexture. Kidneys: Kidneys are normal in size and echotexture. Right kidney measures 11.2 cm long; left kidney measures 10.7 cm long. No hydronephrosis or nephrolithiasis. No solid masses. Aorta: Visualized aorta is normal in caliber at less than 3 cm. Iliacs: Proximal common iliac arteries are normal in caliber at less than 2.5 cm. IVC: Intrahepatic inferior vena cava is patent. Miscellaneous: No free abdominal fluid. IMPRESSION: Increased hepatic echogenicity noted possibly related to hepatic steatosis but other sources of hepatocellular disease cannot be excluded. Recommend clinical correlation. Dictated by: Bhavin CABRERAA Interpreted: Lissett Quintero MD on 01/03/2018 at 12:10 Approved by: Lissett Quintero MD, PhD on 01/03/2018 at 13:49
== END ==
PROVIDERS: PCP Family Medicine; Visit Provider Family Medicine
DX: R74.8 Abnormal levels of other serum enzymes (principal)
CPT/HCPCS: 76700

== ENCOUNTER → 2018-05-25 10:31 | Outpatient (CLI) | payer MEDICARE, OTHER, SELFPAY ==
--- NOTE | 2018-05-25 | DI.US.S_ITS ---
PROCEDURE: US RENAL COMPLETE INDICATIONS: RECURRENT UTI TECHNIQUE: Real-time scanning was performed of the kidneys and bladder, with image documentation. COMPARISON: [facility], US, RENAL COMPLETE, 01/21/2015, 8:58. [facility], CT, IVP (ABD & PEL WWO CONTRAST), 06/10/2015, 9:57. [facility], US, US ABDOMEN COMPLETE, 01/03/2018, 11:03. FINDINGS: Kidneys: Kidneys are normal in size. Right kidney measures 12.0 cm long; left kidney measures 10.4 cm long. Right renal cortical thickness is 1.3 cm; left renal cortical thickness is 1.7 cm. Renal cortical echotexture is normal. No hydronephrosis or nephrolithiasis. No suspicious solid mass lesions. Bladder: Pre-void bladder volume is 92 mL. Post-void residual is 0 mL. Pre-void images demonstrate no intraluminal masses or stones. On pre-void images, neither ureteral jets are noted with color Doppler interrogation. (Of note, ureteral jets may not be detectable in up to 25% of cases due to insufficient differences in specific gravity between ureteral and bladder urine). Miscellaneous: No free pelvic fluid. IMPRESSION: 1. Normal ultrasound appearance of kidneys. No hydronephrosis. 2. No significant post void residual. Dictated by: Chaparrita Quick M.D. on 05/25/2018 at 13:37 Approved by: Chaparrita Quick M.D. on 05/25/2018 at 13:39
== END ==
PROVIDERS: PCP Family Medicine; Visit Provider Family Medicine
DX: N39.0 Urinary tract infection, site not specified (principal)
CPT/HCPCS: 76770

== ENCOUNTER 2018-06-23 08:32 | Emergency (ER) | payer MEDICARE, OTHER, SELFPAY ==
[2018-06-23 08:35] VITALS: BP 123/56; PULSE 60; RESP 16; TEMP 36.7; O2SAT 97; BMI 26.4
--- NOTE | 2018-06-23 08:58 | DI.RAD.S_ITS ---
PROCEDURE: XR CHEST 1V INDICATIONS: chest pain TECHNIQUE: One view of the chest was acquired. COMPARISON: None. FINDINGS: Surgical changes and devices: None. Lungs and pleura: Lungs are clear. No pleural effusions or pneumothorax. Mediastinum: Mediastinal contours appear normal. Heart size is normal. Bones and chest wall: No suspicious bony lesions. Overlying soft tissues appear unremarkable. IMPRESSION: No acute cardiopulmonary findings. Dictated by: Patti Garcia M.D. on 06/23/2018 at 9:16 Approved by: Patti Garcia M.D. on 06/23/2018 at 9:17
[2018-06-23 09:13] LABS: Add Manual Diff / Slide Review NO; Basophils Absolute Auto 100 /uL (0-100); Basophils Percent Auto 1.3 % (0-2); Eosinophils Absolute Auto 200 /uL (0-450); Eosinophils Percent Auto 2.6 % (2-4); Hematocrit 37.8 % (36-46); Hemoglobin 13.4 g/dL (12.0-16.0); Lymphocytes Absolute Auto 3000 /uL (1100-4500); Lymphocytes Percent Auto 46.1 % (25-40); Mean Corpuscular HGB Conc 35.6 % (30-36); Mean Corpuscular Hemoglobin 29.7 PG (26-34); Mean Corpuscular Volume 83.6 fL (80-100); Monocytes Absolute Auto 500 /uL (0-900); Monocytes Percent Auto 7.3 % (3-14); Neutrophils Absolute Auto 2800 /uL (1500-7000); Neutrophils Percent Auto 42.7 % (50-75); Platelet Count 302 X10^3/uL (150-400); Red Blood Cell Count 4.52 X10^6/uL (4.0-5.2); Red Cell Distribution Width 14.1 % (11.6-14.8); White Blood Cell Count 6.5 X10^3/uL (4.5-11.0)
[2018-06-23 09:19] LABS: Prothrombin Time 10.9 SECONDS (10.1-12.7)
[2018-06-23 09:22] LABS: PTT Partial Thromboplastin Tim 31 SECONDS (26.4-36.2)
[2018-06-23 09:23] LABS: Alanine Aminotransferase 38 IU/L (9-52); Albumin 4.8 g/dL (3.5-5.0); Albumin Globulin Ratio 1.5 (1.0-2.8); Alkaline Phosphatase 44 U/L (38-126); Aspartate Aminotransferase 29 IU/L (14-36); BUN Creatinine Ratio 22.9 (6-22); Bilirubin Total 0.4 mg/dL (0.2-1.3); Blood Urea Nitrogen 16 mg/dL (7-17); Calcium 9.7 mg/dL (8.4-10.2); Carbon Dioxide 24 mmol/L (22-32); Chloride 103 mmol/L (98-107); Creatine Kinase 118 U/L (30-135); Estimated Glomerular Filt Rate > 60.0 mL/min (>60); Globulin 3.1 g/dL (1.7-4.1); Glucose 108 mg/dL (80-110); HEMOLYSIS < 15 (0-50); Lipase 80 U/L (23-300); Potassium 3.9 mmol/L (3.4-5.1); Sodium 140 mmol/L (137-145); Total Protein 7.9 g/dL (6.3-8.2)
[2018-06-23 09:35] LABS: Troponin I < 0.012 ng/mL (0.01-0.034)
[2018-06-23 09:38] LABS: Creatine Kinase MB 1.22 ng/mL (<2.37)
--- NOTE | 2018-06-23 09:55 | ED_ITS ---
HPI - Chest Pain General Chief Complaint: Chest Pain Stated Complaint: ACHEY PAIN IN LEFT SHOULDER/CHEST TIGHT Time Seen by Provider: 06/23/18 08:45 Source: patient and old records reviewed Mode of arrival: ambulatory Limitations: no limitations History of Present Illness HPI narrative: This is a 67-year-old female comes to the emergency department for complaint of chest pain. Patient states that she started out with some tingling in her fingers that became an ache in her arm and then radiated into the left side of her chest. Patient states this started about 6:00 a.m. this morning lasted until she came here to the emergency department and has since subsided. Patient states that it felt tight in her chest. She denies any nausea, no diaphoresis, no shortness of breath but felt a little lightheaded. 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 Patient states she has a cardiac history in her family with her dad passing away at the age of 47 and her sister had an OR with stent placement 58. Her mom of a triple a during surgical repair after a stroke. She does take medication for hypertension, dyslipidemia she has a history of thyroid cancer with thyroidectomy. She is on sulfamethoxazole recurrent UTIs does take an 81 mg aspirin daily. She took 2 full aspirin today during her symptoms. She has surgical history of appendectomy as well as the thyroidectomy she was taken out in 2 parts initially for cancer in the nodule. She has had hysterectomy and cholecystectomy. She denies any tobacco, rare alcohol and no illicit. Related Data Home Medications Medication Instructions Recorded Confirmed ascorbic acid (vitamin C) 1,000 mg 1 gram PO DAILY tab 02/14/18 06/23/18 tablet aspirin 81 mg tablet,delayed 81 mg PO DAILY 02/14/18 06/23/18 release cholecalciferol (vitamin D3) 4,000 4,000 unit PO DAILY 02/14/18 06/23/18 unit capsule coenzyme Q10 100 mg capsule 100 mg PO DAILY 02/14/18 06/23/18 estradiol 10 mcg vaginal tablet 10 mcg VAG MOWEFR tab 02/14/18 06/23/18 hydrochlorothiazide 12.5 mg tablet 12.5 mg PO DAILY 02/14/18 06/23/18 levothyroxine 88 mcg capsule 88 mcg PO DAILY 02/14/18 06/23/18 losartan 100 mg tablet 50 mg PO DAILY tab 02/14/18 06/23/18 magnesium 250 mg tablet 250 mg PO DAILY 02/14/18 06/23/18 multivitamin tablet 1 tab PO DAILY 02/14/18 06/23/18 omega-3 fatty acids 1,000 mg 1,400 mg PO DAILY cap 02/14/18 06/23/18 capsule rosuvastatin 20 mg tablet 20 mg PO QPM 02/14/18 06/23/18 turmeric root extract 500 mg 500 mg PO DAILY 02/14/18 06/23/18 capsule Previous Rx's Medication Instructions Recorded calcium 600 mg PO .qd #90 tab 02/14/18 cyanocobalamin (vit B-12) 1,000 1,000 mcg PO DAILY #90 tab 02/14/18 mcg tablet Allergies Allergy/AdvReac Type Severity Reaction Status Date / Time hydrocodone [HYDROCODONE] Allergy Severe NAUSEA/VOMITING/GI Verified 02/14/18 11:05 UPSET codeine [CODEINE] Allergy Mild GI UPSET Verified 02/14/18 11:05 Review of Systems Review of Systems ROS Unobtainable: All systems reviewed & are unremarkable except as noted in HPI and below Constitutional Denies chills, Denies excessive sweating, Denies fatigue, Denies fever(s), Denies lethargy, Denies malaise and Denies weakness Cardiovascular Reports chest pain, Reports chest pain at rest, Denies chest pain with activity, Denies diaphoresis, Denies syncope, Denies edema, Denies irregular heart rhythm, Reports lightheadedness, Reports radiating jaw, neck or arm pain, Denies palpitations, Denies dyspnea, Denies dyspnea on exertion and Denies orthopnea Respiratory Denies chest congestion, Denies cough, Denies dyspnea and Denies dyspnea on ex ertion Gastrointestinal Gastrointestinal: Denies abdominal pain, Denies change in bowel habits, Denies nausea and Denies vomiting Genitourinary Reports other (hx recurrent uti) Musculoskeletal Reports tingling (left arm/fingers) Integumentary/Breasts Denies rash Neurologic Denies syncope, Reports tingling (left arm/fingers) and Denies weakness Endocrine Denies excessive sweating, Denies fatigue and Denies palpitations [facility] Medical History Diverticular disease (Chronic ~1994) Eczema (Chronic ~1998) Fibroids (Chronic ~1998) Foot pain (Chronic ~2010) Frequent UTI (Chronic ~2008) History of urinary incontinence (Chronic ~2008) Hypertension (Chronic ~1989) Shoulder pain (Chronic ~2016) Thyroid cancer (Chronic ~1984) Thyroid nodule (Chronic) Vision disorder (Chronic) Chicken pox (Resolved) Measles (Resolved) Surgical History Appendicitis (Resolved) History of cholecystectomy (Resolved) History of hysterectomy (Resolved ~1996) History of thyroidectomy (Resolved) Family History Father Cancer Mother Heart disease Hypertension Hyperlipidemia Stroke Brother Diabetes mellitus Brother Hyperlipidemia Sister History of heart attack Sister Cancer Grandfather Heart disease Stroke Grandmother Heart disease Stroke Grandfather Cancer Social History Smoking Status: Never smoker Social History Smoking Status: Never smoker alcohol intake: current substance use type: does not use Exam Narrative Exam Narrative: GENERAL: Alert and oriented x three, well-nourished, well- appearing female in no acute distress. HEENT: Head normocephalic, atraumatic, EOMI, pupils reactive, face symmetric, moist mucous membranes NECK: Supple, full range of motion CARDIOVASCULAR: Regular rate and rhythm without murmurs, rubs or gallops. RESPIRATORY: Breath sounds equal bilaterally, no wheezes rales or rhonchi. ABDOMEN: Soft, nontender. Normoactive bowel sounds all 4 quadrants. No guarding or rebound, rigidity, no mass : No CVA tenderness EXTREMITIES: Normal range of motion, no clubbing or edema. 2+ pulses bilaterally upper extremities. Normal range of motion. Neurovascularly intact NEUROLOGICAL: Cranial nerves II through XII grossly intact. Moving all extremities SKIN: Warm, dry, no petechiae, no rashes or lesions. Initial Vital Signs Initial Vital Signs: Vital Signs Temperature 98.0 F 06/23/18 08:35 Pulse Rate 60 06/23/18 08:35 Respiratory Rate 16 06/23/18 08:35 Blood Pressure 123/56 L 06/23/18 08:35 Pulse Oximetry 97 06/23/18 08:35 Scores HEART Score Heart Score history: Slightly Suspicious Heart Score EKG: Normal Heart Score Age: > or = 65 years old Heart Score risk factors: > 3 risk factors or hx of atherosclerotic disease Heart Score troponin: < or = to normal limit Heart Score Total: 4 Course Orders Ordered: ED Orders 06/23/18 11:45 EKG-12 Lead Stat 06/23/18 11:55 Troponin & CK Cardiac Panel Stat Vital Signs - 8 hr 06/23/18 11:06 06/23/18 11:52 06/23/18 12:41 Pulse Rate 58 L 58 L 59 L Respiratory Rate 15 12 13 Blood Pressure [Left Arm] 119/61 113/61 107/52 L Pulse Oximetry 97 98 95 MDM - Chest Pain Lab Data Attestation: I reviewed the patient's lab results. Result diagrams: 06/23/18 09:04 06/23/18 09:04 Lab Results 06/23/18 06/23/18 06/23/18 Range/Units 09:04 09:04 09:04 WBC 6.5 (4.5-11.0) X10^3/uL RBC 4.52 (4.0-5.2) X10^6/uL Hgb 13.4 (12.0-16.0) g/dL Hct 37.8 (36-46) % MCV 83.6 (80-100) fL MCH 29.7 (26-34) PG MCHC 35.6 (30-36) % RDW 14.1 (11.6-14.8) % Plt Count 302 (150-400) X10^3/uL Neut % (Auto) 42.7 L (50-75) % Lymph % (Auto) 46.1 H (25-40) % [place] % (Auto) 7.3 (3-14) % Eos % (Auto) 2.6 (2-4) % Baso % (Auto) 1.3 (0-2) % Neut # (Auto) 2800 (0932-3462) /uL Lymph # (Auto) 3000 (6152-8333) /uL [place] # (Auto) 500 (0-900) /uL Eos # (Auto) 200 (0-450) /uL Baso # (Auto) 100 (0-100) /uL PT 10.9 (10.1-12.7) SECONDS INR 1.0 (0.9-1.3) APTT 31 (26.4-36.2) SECONDS Sodium 140 (137-145) mmol/L Potassium 3.9 (3.4-5.1) mmol/L Chloride 103 (98-107) mmol/L Carbon Dioxide 24 (22-32) mmol/L BUN 16 (7-17) mg/dL Creatinine 0.70 (0.52-1.04) mg/dL Estimated GFR > 60.0 (>60) mL/min BUN/Creatinine Ratio 22.9 H (6-22) Glucose 108 (80-110) mg/dL Calcium 9.7 (8.4-10.2) mg/dL Total Bilirubin 0.4 (0.2-1.3) mg/dL AST 29 (14-36) IU/L ALT 38 (9-52) IU/L Alkaline Phosphatase 44 (38-126) U/L Total Creatine Kinase 118 (30-135) U/L CK-MB (CK-2) 1.22 (<2.37) ng/mL CK-MB (CK-2) Rel Index 1.0 L (1.5-5.0) % Troponin I < 0.012 (0.01-0.034) ng/mL Total Protein 7.9 (6.3-8.2) g/dL Albumin 4.8 (3.5-5.0) g/dL Globulin 3.1 (1.7-4.1) g/dL Albumin/Globulin Ratio 1.5 (1.0-2.8) Lipase 80 (23-300) U/L 06/23/18 Range/Units 11:55 WBC (4.5-11.0) X10^3/uL RBC (4.0-5.2) X10^6/uL Hgb (12.0-16.0) g/dL Hct (36-46) % MCV (80-100) fL MCH (26-34) PG MCHC (30-36) % RDW (11.6-14.8) % Plt Count (150-400) X10^3/uL Neut % (Auto) (50-75) % Lymph % (Auto) (25-40) % [place] % (Auto) (3-14) % Eos % (Auto) (2-4) % Baso % (Auto) (0-2) % Neut # (Auto) (3490-6279) /uL Lymph # (Auto) (9067-3924) /uL [place] # (Auto) (0-900) /uL Eos # (Auto) (0-450) /uL Baso # (Auto) (0-100) /uL PT (10.1-12.7) SECONDS INR (0.9-1.3) APTT (26.4-36.2) SECONDS Sodium (137-145) mmol/L Potassium (3.4-5.1) mmol/L Chloride (98-107) mmol/L Carbon Dioxide (22-32) mmol/L BUN (7-17) mg/dL Creatinine (0.52-1.04) mg/dL Estimated GFR (>60) mL/min BUN/Creatinine Ratio (6-22) Glucose (80-110) mg/dL Calcium (8.4-10.2) mg/dL Total Bilirubin (0.2-1.3) mg/dL AST (14-36) IU/L ALT (9-52) IU/L Alkaline Phosphatase (38-126) U/L Total Creatine Kinase 106 (30-135) U/L CK-MB (CK-2) 1.09 (<2.37) ng/mL CK-MB (CK-2) Rel Index 1.0 L (1.5-5.0) % Troponin I < 0.012 (0.01-0.034) ng/mL Total Protein (6.3-8.2) g/dL Albumin (3.5-5.0) g/dL Globulin (1.7-4.1) g/dL Albumin/Globulin Ratio (1.0-2.8) Lipase (23-300) U/L Imaging Data Chest x-ray: Radiologist's impression: 32 DO Chelita Lester Patient Imaging LarryRoxann Dao 67 F 1950 ACTIVITY DATE EXAM STATUS AUTHOR 06/23/18 08:[address] [address] XRay Report Signed Patient: Roxann Juarez JMR#: [id number] : 1950cct:[id number] Age/Sex: 67 / FDate of Service: 06/23/18 Loc: ED Accession Number: [id number] Procedure: XR chest 1V Ordering Provider: Jesenia Recinos D.O. PROCEDURE: XR CHEST 1V INDICATIONS: chest pain TECHNIQUE: One view of the chest was acquired. COMPARISON: None. FINDINGS: Surgical changes and devices: None. Lungs and pleura: Lungs are clear. No pleural effusions or pneumothorax. Mediastinum: Mediastinal contours appear normal. Heart size is normal. Bones and chest wall: No suspicious bony lesions. Overlying soft tissues appear unremarkable. IMPRESSION: No acute cardiopulmonary findings. Dictated by: Patti Garcia M.D. on 06/23/2018 at 9:16 Approved by: Patti Garcia M.D. on 06/23/2018 at 9:17 ECG Data Attestation: I personally reviewed and interpreted this ECG as follows: Interpretation: Sinus rhythm with a rate of 60 P are interval of 203 QRS 96 and QTC of 456. No ST elevation or depression appreciated. Patient has some changes in V5 that seemed consistent with motion artifact. Left anterior fascicular block. #2, sinus rhythm, rate of 55, P are interval of 2 a QRS of 100 and QTC of 472. No ST elevation or depression. Left anterior fascicular block. MDM Narrative Medical decision making narrative: Patient took 650 mg of aspirin prior to arrival. She has complaints of discomfort in her left arm that became chest pressure and the left side of her chest. It has resolved at this time. Patient has cardiac risk factors with hypertension, dyslipidemia as well as a family history. Troponin is negative, EKG does not show any acute changes. There is no other causes or changes on her lab work or chest x-ray at that are suspicious for other sources. 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 Her heart score is [address] Echeverria about possible observation. Discussed with primary care there is no ability to get stress testing over the weekend and she would be happy to see her on Tuesday. Discussed with patient and plan to do 2nd cardiac enzyme if negative patient would have had to enzymes more than 6 hr from the initial onset of symptoms. These are both negative with no new EKG changes and plan for follow-up Tuesday to be set up for stress testing. Patient is going to continue her aspirin. We did discuss that this is a not as conservative plan and that she should return if worsening symptoms as we have not totally ruled out a cardiac cause. Patient is comfortable with the plan. Discharge Plan Departure Patient Disposition: Home Clinical Impression: Chest pain Discharge Date/Time: 06/23/18 13:19 Interventions: ED Discharge Assessment Last Done: 06/23/18 13:19 Instructions: DI for Atypical Chest Pain Activity Restrictions/Additional Instructions: Follow-up Tuesday with Dr. Echeverria for stress testing. Call to verify your appointment time. Continue your home medications as prescribed including your aspirin daily. Return to the emergency department for worsening symptoms, new chest pain or pressure, new shortness of breath, new nausea, vomiting, passing out or other new or concerning symptoms. Prescriptions: No Action multivitamin [Multiple Vitamins] tablet 1 tab PO DAILY RF: 0 ascorbic acid (vitamin C) 1,000 mg tablet 1 gram PO DAILY RF: 0 omega-3 fatty acids [Fish Oil Concentrate] 1,000 mg capsule 1,400 mg PO DAILY RF: 0 cyanocobalamin (vitamin B-12) [Vitamin B-12] 1,000 mcg tablet 1,000 mcg PO DAILY Qty: 90 RF: 0 aspirin [Adult Low Dose Aspirin] 81 mg tablet,delayed release (DR/EC) 81 mg PO DAILY RF: 0 magnesium 250 mg tablet 250 mg PO DAILY RF: 0 losartan 100 mg tablet 50 mg PO DAILY RF: 0 coenzyme Q10 [Co Q-10] 100 mg capsule 100 mg PO DAILY RF: 0 rosuvastatin 20 mg tablet 20 mg PO QPM RF: 0 hydrochlorothiazide 12.5 mg tablet 12.5 mg PO DAILY RF: 0 estradiol [Vagifem] 10 mcg tablet 10 mcg VAG MOWEFR RF: 0 levothyroxine 88 mcg capsule 88 mcg PO DAILY RF: 0 turmeric root extract 500 mg capsule 500 mg PO DAILY RF: 0 cholecalciferol (vitamin D3) 4,000 unit capsule 4,000 unit PO DAILY RF: 0 calcium 600 mg PO .qd Qty: 90 RF: 0 Referrals: Billie Echeverria MD [Primary Care Provider] -
--- NOTE | 2018-06-23 10:15 | PC.NURSE ---
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
[2018-06-23 11:06] VITALS: BP 119/61; PULSE 58; RESP 15; O2SAT 97
[2018-06-23 11:52] VITALS: BP 113/61; PULSE 58; RESP 12; O2SAT 98
[2018-06-23 12:22] LABS: Creatine Kinase 106 U/L (30-135)
[2018-06-23 12:35] LABS: Troponin I < 0.012 ng/mL (0.01-0.034)
[2018-06-23 12:37] LABS: Creatine Kinase MB 1.09 ng/mL (<2.37)
[2018-06-23 12:41] VITALS: BP 107/52; PULSE 59; RESP 13; O2SAT 95
== END 2018-06-23 13:19 | disposition home or self-care (01) ==
PROVIDERS: Emergency Provider Emergency Medicine; PCP Family Medicine
DX: R07.89 Other chest pain (principal)
CPT/HCPCS: 36415; 71045; 80053; 82550; 82553; 83690; 84484; 85025; 85610; 85730; 93005; 99283; 99285

== ENCOUNTER → 2018-09-06 11:12 | Outpatient (CLI) | payer MEDICARE, OTHER, SELFPAY ==
--- NOTE | 2018-09-06 | DI.RAD.S_ITS ---
PROCEDURE: XR LUMBAR SPINE 2-3V INDICATIONS: LOW BACK PAIN TECHNIQUE: 2 views of the lumbar spine were acquired. COMPARISON: [facility], CR, L-SPINE 2-3 VIEWS, 08/10/2017, 14:11. [facility], CR, L-SPINE 2-3 VIEWS, 06/04/2015, 16:01. FINDINGS: Bones: On [id number] vertebrae are present. There is normal bony alignment. No vertebral body compression fractures. No suspicious bony lesions. Minimal degenerative disc disease and facet osteoarthritis S. seen at L4-5 and L5-S1. Soft tissues: Overlying bowel gas pattern is normal. No suspicious soft tissue calcifications. IMPRESSION: No compression fracture, no change in the small degree of degenerative disc disease and facet osteoarthritis seen over the lower 2 disc levels of the LS spine. Dictated by: Adams Sun M.D. on 09/06/2018 at 12:24 Approved by: Adams Sun M.D. on 09/06/2018 at 12:25
== END ==
PROVIDERS: PCP Family Medicine; Visit Provider Family Medicine
DX: M54.5 Low back pain (principal); M51.36 Other intervertebral disc degeneration, lumbar region; M51.37 Other intervertebral disc degeneration, lumbosacral region; M47.816 Spondylosis without myelopathy or radiculopathy, lumbar region; M47.817 Spondylosis without myelopathy or radiculopathy, lumbosacral region
CPT/HCPCS: 72100

== ENCOUNTER → 2018-09-11 18:59 | Outpatient (CLI) | payer MEDICARE, OTHER, SELFPAY ==
--- NOTE | 2018-09-11 19:01 | DI.MRI.S_ITS ---
PROCEDURE: MR LUMBAR SPINE WO CON INDICATIONS: BACK PAIN TECHNIQUE: Noncontrast sagittal T1 spin echo and T2 fast echo, sagittal STIR, axial T1 and T2 fast spin echo through the lumbar spine. In cases with scoliosis, additional coronal T2 fast spin echo may be performed. COMPARISON: [facility], CR, L-SPINE 2-3 VIEWS, 08/10/2017, 14:11. [facility], CR, XR LUMBAR SPINE 2-3V, 09/06/2018, 11:24. FINDINGS: Image quality: Excellent. Alignment and Curvature: There is grade 1 anterolisthesis of L4 on L5. Bone Marrow: Marrow is of normal overall signal. No acute vertebral body compression fractures. Spinal Cord: Conus medullaris terminates at the L1-L2 level. Visualized cord demonstrates normal signal and size. Paraspinous Soft Tissues: No paravertebral masses. L1-L2: Minimal loss of disc height. Mild disc desiccation. There is mild posterior disc bulge. The central canal is patent. No foraminal stenosis. No definitive nerve root impingement. L2-L3: Normal appearance. L3-L4: Normal appearance. L4-L5: Preserved disc height. Mild disc desiccation. There is mild posterior disc bulge. Moderate bilateral facet arthropathy. The central canal is patent. No foraminal stenosis. No definitive nerve root impingement. L5-S1: Preserved disc height and mild disc desiccation. There is a small posterior central annular fissure. Moderate bilateral facet arthropathy. No central canal or foramina stenosis. There are multiple perineural (Tarlov) cysts in sacrum). IMPRESSION: 1. Multilevel degenerative disc disease lumbar spine. 2. Moderate facet arthropathy at L4-L5 and L5-S1 bilaterally. 3. No central canal stenosis. 4. No foraminal stenosis. 5. 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 Dictated by: Chaparrita Quick M.D. on 09/12/2018 at 9:39 Approved by: Chaparrita Quick M.D. on 09/12/2018 at 10:24
== END ==
PROVIDERS: PCP Family Medicine; Visit Provider Family Medicine
DX: M54.9 Dorsalgia, unspecified (principal); M51.36 Other intervertebral disc degeneration, lumbar region; M51.37 Other intervertebral disc degeneration, lumbosacral region; M47.816 Spondylosis without myelopathy or radiculopathy, lumbar region; M47.817 Spondylosis without myelopathy or radiculopathy, lumbosacral region
CPT/HCPCS: 72148

== ENCOUNTER → 2019-01-01 14:08 | Outpatient (CLI) | payer MEDICARE, OTHER, SELFPAY ==
--- NOTE | 2019-01-01 | DI.MG.S_ITS ---
BILATERAL DIGITAL SCREENING MAMMOGRAM 3D/2D WITH CAD: 01/01/2019 CLINICAL: Routine screening. Comparison is made to exams dated: 10/05/2017 mammogram, 09/22/2017 mammogram, and 09/20/2016 mammogram - [facility]. The tissue of both breasts is extremely dense, which lowers the sensitivity of mammography. Current study was also evaluated with a Computer Aided Detection (CAD) system. No significant masses, calcifications, or other findings are seen in either breast. There has been no significant interval change. IMPRESSION: NEGATIVE There is no mammographic evidence of malignancy. A 1 year screening mammogram is recommended. This exam was interpreted at Station ID: [id number]. NOTE: For mammograms, a report in lay terms will be sent to the patient. Approximately 15% of breast malignancies will not be visualized mammographically. In the management of a palpable breast mass, a negative mammogram must not discourage biopsy of a clinically suspicious lesion. Electronically Signed By: Vern ladd/anup:01/01/2019 16:16:08 letter sent: Normal Exam ACR BI-RADS Category 1: Negative 3341F
== END ==
PROVIDERS: PCP Family Medicine; Visit Provider Family Medicine
DX: Z12.31 Encounter for screening mammogram for malignant neoplasm of breast (principal)
CPT/HCPCS: 77063; 77067

== ENCOUNTER → 2019-04-25 07:48 | Outpatient (CLI) | payer MEDICARE, OTHER, SELFPAY ==
[2019-04-25 09:19] LABS: Alanine Aminotransferase 30 IU/L (<35); Albumin 4.8 g/dL (3.5-5.0); Albumin Globulin Ratio 1.6 (1.0-2.8); Alkaline Phosphatase 49 U/L (38-126); Aspartate Aminotransferase 39 IU/L (14-36); BUN Creatinine Ratio 24.3 (6-22); Bilirubin Total 0.5 mg/dL (0.2-1.3); Blood Urea Nitrogen 17 mg/dL (7-17); Calcium 9.8 mg/dL (8.4-10.2); Carbon Dioxide 26 mmol/L (22-32); Chloride 105 mmol/L (98-107); Estimated Glomerular Filt Rate > 60.0 mL/min (>60); Glucose 115 mg/dL (80-110); HEMOLYSIS < 15 (0-50); Potassium 3.9 mmol/L (3.4-5.1); Sodium 143 mmol/L (137-145); Total Protein 7.8 g/dL (6.3-8.2)
[2019-04-27 10:12] LABS: Lipoprofile NMR SEE SEPERATE REPORT
== END ==
PROVIDERS: PCP Family Medicine; Visit Provider Specialist
DX: E78.5 Hyperlipidemia, unspecified (principal); I10 Essential (primary) hypertension
CPT/HCPCS: 36415; 80053; 83704

== ENCOUNTER → 2019-05-29 12:29 | Outpatient (CLI) | payer MEDICARE, OTHER, SELFPAY | PROVIDERS: PCP Family Medicine; Visit Provider Family Medicine | DX: M85.851 Other specified disorders of bone density and structure, right thigh (principal); Z78.0 Asymptomatic menopausal state; E07.9 Disorder of thyroid, unspecified; Z90.722 Acquired absence of ovaries, bilateral | CPT/HCPCS: 77080 ==

== ENCOUNTER → 2019-05-31 16:11 | Outpatient (ROUT) | payer MEDICARE, OTHER, SELFPAY ==
[2019-05-31 16:48] LABS: Influenza A - CEPHEID Flu A NEGATIVE (NEGATIVE); Influenza B - CEPHEID Flu B NEGATIVE (NEGATIVE)
== END ==
PROVIDERS: PCP Family Medicine; Visit Provider Family Medicine
DX: R05 Cough (principal); R50.9 Fever, unspecified
CPT/HCPCS: 87502

== ENCOUNTER → 2020-01-23 12:15 | Outpatient (CLI) | payer MEDICARE, OTHER, SELFPAY ==
--- NOTE | 2020-01-23 | DI.US.S_ITS ---
PROCEDURE: US RENAL COMPLETE INDICATIONS: FLANK PAIN TECHNIQUE: Real-time scanning was performed of the kidneys and bladder, with image documentation. COMPARISON: [facility], , US RENAL COMPLETE, 05/25/2018, 11:14. FINDINGS: Kidneys: Kidneys are normal in size. Right kidney measures 12.8 cm long; left kidney measures 11.2 cm long. Right renal cortical thickness is 1.9 cm; left renal cortical thickness is 1.6 cm. Renal cortical echotexture is normal. No hydronephrosis or nephrolithiasis. No suspicious solid mass lesions. Bladder: Pre-void bladder volume is 137 mL. Post-void residual is 0 mL. Pre-void images demonstrate no intraluminal masses or stones. On pre-void images, bilateral ureteral jets are noted with color Doppler interrogation. (Of note, ureteral jets may not be detectable in up to 25% of cases due to insufficient differences in specific gravity between ureteral and bladder urine). Miscellaneous: No free pelvic fluid. IMPRESSION: Normal sonographic evaluation of the bilateral kidneys. Dictated by: Vern Greenwood M.D. on 01/23/2020 at 17:35 Approved by: Vern Greenwood M.D. on 01/23/2020 at 17:38
== END ==
PROVIDERS: PCP Family Medicine; Referring Provider Family Medicine; Visit Provider Family Medicine
DX: R10.9 Unspecified abdominal pain (principal)
CPT/HCPCS: 76770

== ENCOUNTER → 2020-02-13 11:24 | Outpatient (CLI) | payer MEDICARE, OTHER, SELFPAY ==
--- NOTE | 2020-02-13 | DI.MG.S_ITS ---
BILATERAL DIGITAL SCREENING MAMMOGRAM 3D/2D WITH CAD: 02/13/2020 CLINICAL: Routine screening. Comparison is made to exams dated: 01/01/2019 mammogram, 09/22/2017 mammogram, and 09/20/2016 mammogram - [facility]. The tissue of both breasts is extremely dense, which lowers the sensitivity of mammography. Current study was also evaluated with a Computer Aided Detection (CAD) system. No significant masses, calcifications, or other findings are seen in either breast. There has been no significant interval change. IMPRESSION: NEGATIVE There is no mammographic evidence of malignancy. A 1 year screening mammogram is recommended. This exam was interpreted at Station ID: [id number]. NOTE: For mammograms, a report in lay terms will be sent to the patient. Approximately 15% of breast malignancies will not be visualized mammographically. In the management of a palpable breast mass, a negative mammogram must not discourage biopsy of a clinically suspicious lesion. Electronically Signed By: Georgia julien/anup:02/13/2020 12:36:02 letter sent: Normal Exam ACR BI-RADS Category 1: Negative [id number]
== END ==
PROVIDERS: PCP Family Medicine; Referring Provider Family Medicine; Visit Provider Family Medicine
DX: Z12.31 Encounter for screening mammogram for malignant neoplasm of breast (principal)
CPT/HCPCS: 77063; 77067

== ENCOUNTER → 2020-05-20 07:19 | Outpatient (CLI) | payer MEDICARE, OTHER, SELFPAY ==
[2020-05-20 08:47] LABS: Add Manual Diff / Slide Review NO; Basophils Absolute Auto 100 /uL (0-100); Eosinophils Absolute Auto 200 /uL (0-450); Hematocrit 38.5 % (36-46); Hemoglobin 13.6 g/dL (12.0-16.0); Lymphocytes Absolute Auto 2600 /uL (1100-4500); Lymphocytes Percent Auto 42.4 % (25-40); Mean Corpuscular HGB Conc 35.2 % (30-36); Mean Corpuscular Hemoglobin 29.9 PG (26-34); Mean Corpuscular Volume 85.1 fL (80-100); Monocytes Absolute Auto 400 /uL (0-900); Monocytes Percent Auto 6.8 % (3-14); Neutrophils Absolute Auto 2800 /uL (1500-7000); Neutrophils Percent Auto 45.8 % (50-75); Platelet Count 269 X10^3/uL (150-400); Red Blood Cell Count 4.53 X10^6/uL (4.0-5.2); Red Cell Distribution Width 14.1 % (11.6-14.8); White Blood Cell Count 6.2 X10^3/uL (4.5-11.0)
[2020-05-20 09:05] LABS: Hemoglobin A1C% w Est Avg Glu 6.2 % (4.0-6.0)
[2020-05-20 09:06] LABS: Alanine Aminotransferase 39 IU/L (<35); Albumin 4.5 g/dL (3.5-5.0); Albumin Globulin Ratio 1.5 (1.0-2.8); Alkaline Phosphatase 47 U/L (38-126); Aspartate Aminotransferase 39 IU/L (14-36); BUN Creatinine Ratio 24.6 (6-22); Bilirubin Total 0.3 mg/dL (0.2-1.3); Blood Urea Nitrogen 17 mg/dL (7-17); Calcium 9.6 mg/dL (8.4-10.2); Carbon Dioxide 28 mmol/L (22-32); Chloride 106 mmol/L (98-107); Cholesterol 132 mg/dL (140-199); Estimated Glomerular Filt Rate > 60.0 mL/min (>60); Globulin 3.1 g/dL (1.7-4.1); Glucose 117 mg/dL (80-110); HDL Cholesterol 34 mg/dL (40-60); HEMOLYSIS < 15 (0-50); LDL Cholesterol Calculated 43 mg/dL (<100); Magnesium 2.2 mg/dL (1.6-2.3); Potassium 3.9 mmol/L (3.4-5.1); Sodium 140 mmol/L (137-145); Total Protein 7.6 g/dL (6.3-8.2); Triglycerides 275 mg/dL (35-150)
[2020-05-20 09:30] LABS: Thyroid Stimulating Hormone 4.25 uIU/mL (0.47-4.68)
[2020-05-26 13:11] LABS: LDL Particle SEE SEPARATE REPORTS
== END ==
PROVIDERS: PCP Family Medicine; Referring Provider Specialist; Visit Provider Family Medicine
DX: E78.5 Hyperlipidemia, unspecified (principal); R73.9 Hyperglycemia, unspecified; I10 Essential (primary) hypertension; E03.9 Hypothyroidism, unspecified
CPT/HCPCS: 36415; 80053; 80061; 83036; 83704; 83735; 84443; 85025

== ENCOUNTER → 2020-06-12 12:50 | Outpatient (CLI) | payer MEDICARE, OTHER, SELFPAY ==
[2020-06-12] MEDS: COVID-19 VACC #1, MRNA(MOD) 100 MCG/0.5 ML VIAL IM (12:56)
== END ==
PROVIDERS: PCP Family Medicine; Visit Provider Internal Medicine
DX: Z23 Encounter for immunization (principal)
CPT/HCPCS: 0011A; 91301

== ENCOUNTER → 2020-07-10 12:35 | Outpatient (CLI) | payer MEDICARE, OTHER, SELFPAY ==
[2020-07-10] MEDS: COVID-19 VACC #2, MRNA(MOD) 100 MCG/0.5 ML VIAL IM (12:44)
== END ==
PROVIDERS: PCP Family Medicine; Visit Provider Internal Medicine
DX: Z23 Encounter for immunization (principal)
CPT/HCPCS: 0012A; 91301

== ENCOUNTER → 2020-11-03 17:15 | Outpatient (CLI) | payer MEDICARE, OTHER, SELFPAY | PROVIDERS: PCP Family Medicine; Visit Provider Physician Assistant | DX: R35.0 Frequency of micturition (principal) | CPT/HCPCS: 87077; 87086; 87186 ==

== ENCOUNTER → 2020-11-24 07:43 | Outpatient (CLI) | payer MEDICARE, OTHER, SELFPAY ==
[2020-11-25 09:07] LABS: Free T4, Direct Thyroxine 0.93 ng/dL (0.78-2.19)
== END ==
PROVIDERS: PCP Family Medicine; Referring Provider Family Medicine; Visit Provider Family Medicine
DX: E03.9 Hypothyroidism, unspecified; R10.9 Unspecified abdominal pain; R31.21 Asymptomatic microscopic hematuria; N39.0 Urinary tract infection, site not specified
CPT/HCPCS: 36415; 84439; 87086

== ENCOUNTER → 2021-03-30 14:42 | Outpatient (CLI) | payer MEDICARE, OTHER, SELFPAY ==
--- NOTE | 2021-03-30 14:43 | DI.MG.S_ITS ---
BILATERAL DIGITAL SCREENING MAMMOGRAM 3D/2D WITH CAD: 03/30/2021 CLINICAL: Routine screening. Comparison is made to exams dated: 02/13/2020 mammogram, 01/01/2019 mammogram, 10/05/2017 mammogram, and 09/22/2017 mammogram - [facility]. The tissue of both breasts is extremely dense, which lowers the sensitivity of mammography. Current study was also evaluated with a Computer Aided Detection (CAD) system. No significant masses, calcifications, or other findings are seen in either breast. There has been no significant interval change. IMPRESSION: NEGATIVE There is no mammographic evidence of malignancy. A 1 year screening mammogram is recommended. This exam was interpreted at Station ID: [id number]. NOTE: For mammograms, a report in lay terms will be sent to the patient. Approximately 15% of breast malignancies will not be visualized mammographically. In the management of a palpable breast mass, a negative mammogram must not discourage biopsy of a clinically suspicious lesion. Electronically Signed By: Nabeel Corrigan acr/anup:03/30/2021 17:01:48 letter sent: Normal Exam ACR BI-RADS Category 1: Negative [id number]
== END ==
PROVIDERS: PCP Family Medicine; Referring Provider Family Medicine; Visit Provider Family Medicine
DX: Z12.31 Encounter for screening mammogram for malignant neoplasm of breast (principal)
CPT/HCPCS: 77063; 77067

== ENCOUNTER → 2021-05-29 07:37 | Outpatient (CLI) | payer MEDICARE, OTHER, SELFPAY ==
[2021-05-29 09:48] LABS: Alanine Aminotransferase 24 IU/L (<35); Albumin 4.7 g/dL (3.5-5.0); Albumin Globulin Ratio 1.6 (1.0-2.8); Alkaline Phosphatase 42 U/L (38-126); Aspartate Aminotransferase 28 IU/L (14-36); Bilirubin Total 0.5 mg/dL (0.2-1.3); Blood Urea Nitrogen 18 mg/dL (7-17); Calcium 9.8 mg/dL (8.4-10.2); Carbon Dioxide 27 mmol/L (22-32); Chloride 107 mmol/L (98-107); Estimated Glomerular Filt Rate > 60.0 mL/min (>60); Globulin 2.9 g/dL (1.7-4.1); Glucose 106 mg/dL (80-110); HEMOLYSIS < 15 (0-50); Magnesium 2.2 mg/dL (1.6-2.3); Potassium 4.2 mmol/L (3.4-5.1); Sodium 141 mmol/L (137-145); Total Protein 7.6 g/dL (6.3-8.2)
[2021-06-03 08:17] LABS: Cholesterol, Total 121 mg/dL (100-199); HDL-Cholesterol 38 mg/dL (>39); HDL-Particle (Total) 31.8 umol/L (>=30.5); LDL Particle 802 nmol/L (<1000); LDL Size 20.4 nm (>20.5); LDL-Cholsterol 52 mg/dL (0-99); LP-IR Score 71 (<=45); Small LDL- Particle 421 nmol/L (<=527); Triglycerides 189 mg/dL (0-149)
== END ==
PROVIDERS: PCP Family Medicine; Referring Provider Specialist; Visit Provider Specialist
DX: I10 Essential (primary) hypertension (principal); E78.5 Hyperlipidemia, unspecified
CPT/HCPCS: 36415; 80053; 80061; 83704; 83735

== ENCOUNTER → 2021-06-24 14:28 | Outpatient (CLI) | payer MEDICARE, OTHER, SELFPAY | PROVIDERS: PCP Family Medicine; Visit Provider Physician Assistant | DX: N34.3 Urethral syndrome, unspecified (principal) | CPT/HCPCS: 87077; 87086; 87186 ==

== ENCOUNTER → 2021-07-15 16:23 | Outpatient (CLI) | payer MEDICARE, OTHER, SELFPAY ==
--- NOTE | 2021-07-15 | DI.RAD.S_ITS ---
PROCEDURE: XR CHEST 2V INDICATIONS: COUGH TECHNIQUE: 2 views of the chest were acquired. COMPARISON: [facility], CR, XR CHEST 1V, 06/23/2018, 9:08. FINDINGS: Surgical changes and devices: None. Lungs and pleura: Lungs are clear. No pleural effusions or pneumothorax. Mediastinum: Mediastinal contours are normal. Heart size is normal. Bones and chest wall: No suspicious bony abnormalities. Soft tissues appear unremarkable. IMPRESSION: No acute cardiopulmonary disease. Dictated by: Bhavin SORENSON Interpreted: Nathan Batista MD on 07/15/2021 at 17:12 Transcribed by: LONNIE on 07/15/2021 at 17:12 Approved by: Nathan Batista M.D. on 07/15/2021 at 17:19
== END ==
PROVIDERS: PCP Family Medicine; Referring Provider Family Medicine; Visit Provider Family Medicine
DX: R05.1 Acute cough (principal)
CPT/HCPCS: 71046

== ENCOUNTER 2021-10-14 14:33 | Emergency (ER) | payer MEDICARE, OTHER, SELFPAY ==
[2021-10-14] VITALS (16 sets, daily range): BP systolic 120–149; BP diastolic 58–68; PULSE 65–82; RESP 13–24; TEMP 36.2; O2SAT 92–97; BMI 27.1
--- NOTE | 2021-10-14 15:01 | DI.RAD.S_ITS ---
PROCEDURE: XR CHEST 1V INDICATIONS: chest pain TECHNIQUE: One view of the chest was acquired. COMPARISON: [facility], CR, XR CHEST 1V, 06/23/2018, 9:08. FINDINGS: Surgical changes and devices: None. Lungs and pleura: Lungs are clear. No pleural effusions or pneumothorax. Mediastinum: Mediastinal contours appear normal. Heart size is normal. Bones and chest wall: No suspicious bony lesions. Overlying soft tissues appear unremarkable. IMPRESSION: No acute cardiopulmonary process demonstrated radiographically. Dictated by: Silverio Trevino M.D. on 10/14/2021 at 15:44 Approved by: Silverio Trevino M.D. on 10/14/2021 at 15:44
[2021-10-14 16:04] LABS: Add Manual Diff / Slide Review NO; Alanine Aminotransferase 26 IU/L (<35); Albumin 4.8 g/dL (3.5-5.0); Albumin Globulin Ratio 1.5 (1.0-2.8); Alkaline Phosphatase 52 U/L (38-126); Aspartate Aminotransferase 29 IU/L (14-36); BUN Creatinine Ratio 22.2 (6-22); Basophils Absolute Auto 0 /uL (0-100); Basophils Percent Auto 0.3 % (0-2); Bilirubin Total 0.4 mg/dL (0.2-1.3); Blood Urea Nitrogen 14 mg/dL (7-17); Calcium 9.9 mg/dL (8.4-10.2); Carbon Dioxide 25 mmol/L (22-32); Chloride 103 mmol/L (98-107); Creatine Kinase 183 U/L (30-135); Eosinophils Absolute Auto 200 /uL (0-450); Eosinophils Percent Auto 2.1 % (2-4); Estimated Glomerular Filt Rate > 60 mL/min (>60); Globulin 3.2 g/dL (1.7-4.1); Glucose 97 mg/dL (80-110); HEMOLYSIS < 15 (0-50); Hematocrit 37.5 % (36-46); Hemoglobin 13.3 g/dL (12.0-16.0); Lipase 53 U/L (23-300); Lymphocytes Absolute Auto 2400 /uL (1100-4500); Lymphocytes Percent Auto 24.1 % (25-40); Magnesium 2.1 mg/dL (1.6-2.3); Mean Corpuscular HGB Conc 35.5 % (30-36); Mean Corpuscular Hemoglobin 29.2 PG (26-34); Mean Corpuscular Volume 82.4 fL (80-100); Monocytes Absolute Auto 800 /uL (0-900); Monocytes Percent Auto 8.3 % (3-14); Neutrophils Absolute Auto 6500 /uL (1500-7000); Neutrophils Percent Auto 65.2 % (50-75); Platelet Count 261 X10^3/uL (150-400); Red Blood Cell Count 4.55 X10^6/uL (4.0-5.2); Red Cell Distribution Width 14.1 % (11.6-14.8); Sodium 137 mmol/L (137-145); White Blood Cell Count 9.9 X10^3/uL (4.5-11.0)
[2021-10-14 16:15] LABS: Troponin I < 0.012 ng/mL (0.01-0.034)
[2021-10-14 16:19] LABS: CKMB % Relative Index 0.9 % (1.5-5.0); Creatine Kinase MB 1.69 ng/mL (<2.37)
--- NOTE | 2021-10-14 19:28 | ED.GENADULT ---
HPI - General Adult General Chief complaint: Dizziness Stated complaint: Dizzy, sharp shoulder/arm pain (left) Time Seen by Provider: 10/14/21 19:23 Source: patient Mode of arrival: Ambulatory History of Present Illness HPI narrative: 71-year-old woman with a history of thyroid cancer in the 80s without recurrence, hypertension hyperlipidemia who presents complaining of 2-3 days of a random episodes of lightheadedness that do not seem to be related to activity or position. Some of the episodes have been so severe that she has needed to sit down to avoid falling down. Today at 1:30 a.m. she was standing and walking from 1 office to another which she had a severe sharp pain that went from her neck to her axilla and shoulder and upper portion of her left arm that left her significantly dizzy. Not associated with palpitations, overt chest pain or diaphoresis. She has not had any nausea vomiting or diarrhea. Not complaining of tinnitus, ear pain, hearing loss, headaches. She does note that they returned from a long drive to [facility] and back the day before these symptoms started. She has not been noticing palpitations or dyspnea. She did note that both legs were quite swollen after her 14 hour car ride but felt that was simply dependent edema rather than anything else and seem to resolve within 24 hours. Related Data Home Medications Medication Instructions Recorded Confirmed ascorbic acid (vitamin C) 1,000 mg 1 gram PO DAILY tab 02/14/18 06/24/21 tablet aspirin 81 mg tablet,delayed 81 mg PO DAILY 02/14/18 06/24/21 release (Adult Low Dose Aspirin) cholecalciferol (vitamin D3) 100 4,000 unit PO DAILY 02/14/18 06/24/21 mcg (4,000 unit) capsule coenzyme Q10 100 mg capsule (Co 100 mg PO DAILY 02/14/18 06/24/21 Q-10) estradiol 10 mcg vaginal tablet 10 mcg VAG MOWEFR tab 02/14/18 06/24/21 (Vagifem) hydrochlorothiazide 12.5 mg tablet 12.5 mg PO DAILY 02/14/18 06/24/21 levothyroxine 88 mcg capsule 88 mcg PO DAILY 02/14/18 06/24/21 losartan 100 mg tablet 50 mg PO DAILY tab 02/14/18 06/24/21 magnesium 250 mg tablet 250 mg PO DAILY 02/14/18 06/24/21 multivitamin (Multiple Vitamins) 1 tab PO DAILY 02/14/18 06/24/21 omega-3 fatty acids 1,000 mg 1,400 mg PO DAILY cap 02/14/18 06/24/21 capsule (Fish Oil Concentrate) rosuvastatin 20 mg tablet 20 mg PO QPM 02/14/18 06/24/21 turmeric root extract 500 mg 500 mg PO DAILY 02/14/18 06/24/21 capsule Previous Rx's Medication Instructions Recorded calcium 600 mg PO .qd #90 tab 02/14/18 cyanocobalamin (vitamin B-12) 1,000 mcg PO DAILY #90 tab 02/14/18 1,000 mcg tablet (Vitamin B-12) Allergies Allergy/AdvReac Type Severity Reaction Status Date / Time hydrocodone [HYDROCODONE] Allergy Severe NAUSEA/VOMITING/GI Verified 06/24/21 14:52 UPSET codeine [CODEINE] Allergy Mild GI UPSET Verified 06/24/21 14:52 Review of Systems Review of Systems Narrative: Remainder of complete review of systems is otherwise unremarkable except for that included in the HPI. Patient History Medical History (Updated 10/14/21 @ 21:26 by Felecia Groves MD) Chicken pox Diverticular disease (~1994) Eczema (~1998) Fibroids (~1998) Foot pain (~2010) Frequent UTI (~2008) History of urinary incontinence (~2008) Hypertension (~1989) Measles Shoulder pain (~2016) Thyroid cancer (~1984) Thyroid nodule Vision disorder Surgical History Appendicitis History of cholecystectomy History of hysterectomy (~1996) History of thyroidectomy Family History Father Cancer Mother Heart disease Hypertension Hyperlipidemia Stroke Brother Diabetes mellitus Brother Hyperlipidemia Sister History of heart attack Sister Cancer Grandfather Heart disease Stroke Grandmother Heart disease Stroke Grandfather Cancer Social History Smoking Status: Never smoker alcohol intake: current substance use type: does not use Smoking Status: Never smoker Substance Use Type: does not use Exam Initial Vital Signs Initial Vital Signs: Vital Signs Temperature 97.2 F L 10/14/21 14:57 Pulse Rate 82 10/14/21 14:57 Respiratory Rate 16 10/14/21 14:57 Blood Pressure 129/68 10/14/21 14:57 Pulse Oximetry 97 10/14/21 14:57 General: Healthy appearing, in no acute distress. Able to give a complete and coherent history. Well-nourished well-developed HEENT: Moist mucous membranes, normal sclera with reactive pupils, Neck: No JVD, supple Respiratory: Lungs are clear to auscultation, no wheezing no rales no rhonchi. Full and symmetrical air movement Cardiac: Regular rate and rhythm no murmurs no bruits Abdomen: Soft, nontender, good bowel tones, no flank pain Skin: Warm and dry, no rashes Neurologic: Grossly neurologically intact with no obvious asymmetries or abnormalities Extremities: No trauma, well perfused, no edema Psych: Cooperative, appropriate insight and affect Course Orders Ordered: ED Orders 10/14/21 15:01 XR chest 1V Stat EKG-12 Lead Stat 10/14/21 15:49 Complete Blood Count AUTO DIFF Stat Comprehensive Metabolic Panel Stat Lipase Stat Magnesium Stat Troponin & CK Cardiac Panel Stat 10/14/21 20:28 D Dimer Stat Trop I [Troponin I] Stat Vital Signs Vital signs: Vital Signs - 8 hr 10/14/21 14:57 10/14/21 18:28 10/14/21 18:30 Temperature 97.2 F L Pulse Rate 82 68 69 Respiratory Rate 16 17 19 Blood Pressure 129/68 122/60 122/60 Pulse Oximetry 97 95 96 10/14/21 18:40 10/14/21 19:00 10/14/21 19:20 Temperature Pulse Rate 68 68 69 Respiratory Rate 22 13 13 Blood Pressure 136/61 120/58 L 129/60 Pulse Oximetry 95 93 94 10/14/21 19:30 10/14/21 19:40 10/14/21 20:00 Temperature Pulse Rate 71 67 66 Respiratory Rate 18 23 24 Blood Pressure 147/65 H 138/65 Pulse Oximetry 94 94 94 10/14/21 20:20 10/14/21 20:30 Temperature Pulse Rate 65 65 Respiratory Rate 20 14 Blood Pressure 147/64 H Pulse Oximetry 94 94 Medical Decision Making Lab Data Result diagrams: 10/14/21 15:49 10/14/21 15:49 Labs: Lab Results 10/14/21 10/14/21 10/14/21 Range/Units 15:49 15:49 20:28 WBC 9.9 (4.5-11.0) X10^3/uL RBC 4.55 (4.0-5.2) X10^6/uL Hgb 13.3 (12.0-16.0) g/dL Hct 37.5 (36-46) % MCV 82.4 (80-100) fL MCH 29.2 (26-34) PG MCHC 35.5 (30-36) % RDW 14.1 (11.6-14.8) % Plt Count 261 (150-400) X10^3/uL Neut % (Auto) 65.2 (50-75) % Lymph % (Auto) 24.1 L (25-40) % Starke % (Auto) 8.3 (3-14) % Eos % (Auto) 2.1 (2-4) % Baso % (Auto) 0.3 (0-2) % Neut # (Auto) 6500 (2367-3708) /uL Lymph # (Auto) 2400 (2571-9236) /uL Starke # (Auto) 800 (0-900) /uL Eos # (Auto) 200 (0-450) /uL Baso # (Auto) 0 (0-100) /uL D-Dimer < 200 (<230) ng/mL Sodium 137 (137-145) mmol/L Potassium 4.0 (3.4-5.1) mmol/L Chloride 103 (98-107) mmol/L Carbon Dioxide 25 (22-32) mmol/L BUN 14 (7-17) mg/dL Creatinine 0.63 (0.52-1.04) mg/dL Estimated GFR > 60 (>60) mL/min BUN/Creatinine Ratio 22.2 H (6-22) Glucose 97 (80-110) mg/dL Calcium 9.9 (8.4-10.2) mg/dL Magnesium 2.1 (1.6-2.3) mg/dL Total Bilirubin 0.4 (0.2-1.3) mg/dL AST 29 (14-36) IU/L ALT 26 (<35) IU/L Alkaline Phosphatase 52 (38-126) U/L Total Creatine Kinase 183 H (30-135) U/L CK-MB (CK-2) 1.69 (<2.37) ng/mL CK-MB (CK-2) Rel Index 0.9 L (1.5-5.0) % Troponin I < 0.012 (0.01-0.034) ng/mL Total Protein 8.0 (6.3-8.2) g/dL Albumin 4.8 (3.5-5.0) g/dL Globulin 3.2 (1.7-4.1) g/dL Albumin/Globulin Ratio 1.5 (1.0-2.8) Lipase 53 (23-300) U/L 10/14/21 Range/Units 20:28 WBC (4.5-11.0) X10^3/uL RBC (4.0-5.2) X10^6/uL Hgb (12.0-16.0) g/dL Hct (36-46) % MCV (80-100) fL MCH (26-34) PG MCHC (30-36) % RDW (11.6-14.8) % Plt Count (150-400) X10^3/uL Neut % (Auto) (50-75) % Lymph % (Auto) (25-40) % Starke % (Auto) (3-14) % Eos % (Auto) (2-4) % Baso % (Auto) (0-2) % Neut # (Auto) (2590-4412) /uL Lymph # (Auto) (7187-3074) /uL Starke # (Auto) (0-900) /uL Eos # (Auto) (0-450) /uL Baso # (Auto) (0-100) /uL D-Dimer (<230) ng/mL Sodium (137-145) mmol/L Potassium (3.4-5.1) mmol/L Chloride (98-107) mmol/L Carbon Dioxide (22-32) mmol/L BUN (7-17) mg/dL Creatinine (0.52-1.04) mg/dL Estimated GFR (>60) mL/min BUN/Creatinine Ratio (6-22) Glucose (80-110) mg/dL Calcium (8.4-10.2) mg/dL Magnesium (1.6-2.3) mg/dL Total Bilirubin (0.2-1.3) mg/dL AST (14-36) IU/L ALT (<35) IU/L Alkaline Phosphatase (38-126) U/L Total Creatine Kinase (30-135) U/L CK-MB (CK-2) (<2.37) ng/mL CK-MB (CK-2) Rel Index (1.5-5.0) % Troponin I < 0.012 (0.01-0.034) ng/mL Total Protein (6.3-8.2) g/dL Albumin (3.5-5.0) g/dL Globulin (1.7-4.1) g/dL Albumin/Globulin Ratio (1.0-2.8) Lipase (23-300) U/L Imaging Data Chest x-ray: Radiologist's Impression: FINDINGS:? ? Surgical changes and devices:? None.? ? Lungs and pleura:? Lungs are clear.? No pleural effusions or pneumothorax.? ? Mediastinum:? Mediastinal contours appear normal.? Heart size is normal.? ? Bones and chest wall:? No suspicious bony lesions.? Overlying soft tissues appear unremarkable.? ? IMPRESSION:? No acute cardiopulmonary process demonstrated radiographically. ? ? Dictated by: Silverio Trevino M.D. on 10/14/2021 at 15:44? ?? ECG Data Interpretation: Sinus rhythm at a rate of 68 Left axis deviation with left anterior fascicular block No acute ischemic changes MDM Narrative Medical decision making narrative: 71-year-old woman with intermittent vertiginous episodes over the last couple of days with an episode of fleeting sharp chest pain into the left axilla and arm today. Lab work is reassuring with repeat troponin negative. D-dimer suggests no pulmonary embolism. There is no sign of stroke, sepsis, other infection or need for further workup at this time. She is feeling well at time of discharge. Questions are answered and she is safe to go home. Discharge Plan Departure Patient Disposition: Home Clinical Impression: Chest pain, atypical, Vertigo Activity Restrictions/Additional Instructions: Thank you for coming in today Your workup today was very reassuring. I am not finding any evidence to suggest stroke, heart attack, enlarged heart, blood clots in your lungs, infection or other diagnosis that would require further workup or hospitalization at this time. I would ask that you schedule a follow-up appointment with your primary care physician. If you continue to have these episodes of dizziness there may be additional outpatient workup that can be completed. It is not uncommon for a low-grade virus to cause acute episodes of dizziness such as this. If that is the case here, then symptoms will likely resolve within the next week or so. If you find that you are getting worse or develop any new symptoms, please feel free to return to the emergency department for further evaluation. Prescriptions: No Action multivitamin [Multiple Vitamins] tablet 1 tab PO DAILY 0RF ascorbic acid (vitamin C) 1,000 mg tablet 1 gram PO DAILY 0RF omega-3 fatty acids [Fish Oil Concentrate] 1,000 mg capsule 1,400 mg PO DAILY 0RF cyanocobalamin (vitamin B-12) [Vitamin B-12] 1,000 mcg tablet 1,000 mcg PO DAILY Qty: 90 0RF aspirin [Adult Low Dose Aspirin] 81 mg tablet,delayed release (DR/EC) 81 mg PO DAILY 0RF magnesium 250 mg tablet 250 mg PO DAILY 0RF losartan 100 mg tablet 50 mg PO DAILY 0RF coenzyme Q10 [Co Q-10] 100 mg capsule 100 mg PO DAILY 0RF rosuvastatin 20 mg tablet 20 mg PO QPM 0RF hydrochlorothiazide 12.5 mg tablet 12.5 mg PO DAILY 0RF estradiol [Vagifem] 10 mcg tablet 10 mcg VAG MOWEFR 0RF levothyroxine 88 mcg capsule 88 mcg PO DAILY 0RF turmeric root extract 500 mg capsule 500 mg PO DAILY 0RF cholecalciferol (vitamin D3) 4,000 unit capsule 4,000 unit PO DAILY 0RF calcium 600 mg PO .qd Qty: 90 0RF Referrals: Billie Echeverria MD [Primary Care Provider] -
[2021-10-14 20:53] LABS: D Dimer < 200 ng/mL (<230)
[2021-10-14 21:09] LABS: Troponin I < 0.012 ng/mL (0.01-0.034)
== END 2021-10-14 21:51 | disposition home or self-care (01) ==
PROVIDERS: Emergency Medicine; Emergency Provider Emergency Medicine; PCP Family Medicine; Referring Provider Specialist
DX: R07.89 Other chest pain (principal); R42 Dizziness and giddiness
CPT/HCPCS: 36415; 71045; 80053; 82550; 82553; 83690; 83735; 84484; 85025; 85379; 93005; 99283

== ENCOUNTER → 2022-01-13 10:39 | Outpatient (CLI) | payer MEDICARE, OTHER, SELFPAY | PROVIDERS: PCP Family Medicine; Referring Provider Family Medicine; Visit Provider Family Medicine | DX: Z13.820 Encounter for screening for osteoporosis; M85.851 Other specified disorders of bone density and structure, right thigh; M85.852 Other specified disorders of bone density and structure, left thigh; Z78.0 Asymptomatic menopausal state; Z85.850 Personal history of malignant neoplasm of thyroid; Z92.23 Personal history of estrogen therapy; Z90.710 Acquired absence of both cervix and uterus | CPT/HCPCS: 77080 ==

== ENCOUNTER → 2022-06-02 14:22 | Outpatient (CLI) | payer MEDICARE, OTHER, SELFPAY ==
--- NOTE | 2022-06-02 | DI.MG.S_ITS ---
BILATERAL DIGITAL SCREENING MAMMOGRAM 3D/2D WITH CAD: 06/02/2022 CLINICAL: Routine screening. Comparison is made to exams dated: 03/30/2021 mammogram, 02/13/2020 mammogram, and 01/01/2019 mammogram - [facility]. Both breasts are extremely dense, which lowers the sensitivity of mammography (category d />75% glandular tissue). Current study was also evaluated with a Computer Aided Detection (CAD) system. No significant masses, calcifications, or other findings are seen in either breast. There has been no significant interval change. IMPRESSION: NEGATIVE There is no mammographic evidence of malignancy. A 1 year screening mammogram is recommended. Based on the Tyrer Cuzick model (a risk assessment model) the patient's lifetime risk is 5.1% and her 10 year risk is 3.5%. According to the ACR, ACS, and NCCN guidelines, an annual breast MRI exam along with mammogram is recommended if the patient's lifetime risk is 20% or greater. This exam was interpreted at Station ID: [id number]. NOTE: For mammograms, a report in lay terms will be sent to the patient. Approximately 15% of breast malignancies will not be visualized mammographically. In the management of a palpable breast mass, a negative mammogram must not discourage biopsy of a clinically suspicious lesion. Electronically Signed By: Patti reed/anup:06/02/2022 16:17:26 letter sent: Normal Exam ACR BI-RADS Category 1: Negative 3341F
== END ==
PROVIDERS: PCP Family Medicine; Referring Provider Family Medicine; Visit Provider Family Medicine
DX: Z12.31 Encounter for screening mammogram for malignant neoplasm of breast (principal)
CPT/HCPCS: 77063; 77067

== ENCOUNTER → 2022-06-11 16:53 | Outpatient (CLI) | payer MEDICARE, OTHER, SELFPAY ==
--- NOTE | 2022-06-11 16:54 | DI.US.S_ITS ---
PROCEDURE: US RENAL COMPLETE INDICATIONS: Urinary tract infection, site not specified TECHNIQUE: Real-time scanning was performed of the kidneys and bladder, with image documentation. COMPARISON: [facility], , RENAL COMPLETE, 01/23/2020, 12:39. FINDINGS: Kidneys: Kidneys are normal in size. Right kidney measures 11.8 cm long; left kidney measures 11.7 cm long. Right renal cortical thickness is 0.8 cm; left renal cortical thickness is 0.7 cm. Renal cortical echotexture is normal. No hydronephrosis or nephrolithiasis. No suspicious solid mass lesions. A 1.3 cm cortical cyst is present at the right kidney without suspicious features visualized. Bladder: Pre-void bladder volume is 110 mL. Post-void residual is 9 mL. Pre-void images demonstrate no intraluminal masses or stones. On pre-void images, both ureteral jets are noted with color Doppler interrogation. (Of note, ureteral jets may not be detectable in up to 25% of cases due to insufficient differences in specific gravity between ureteral and bladder urine). Miscellaneous: No free pelvic fluid. The visualized liver is echogenic. IMPRESSION: No hydronephrosis or evidence of nephrolithiasis. The liver is echogenic, a nonspecific finding commonly seen in the setting of steatosis. Dictated by: Nathan Bolaños M.D. on 06/12/2022 at 11:12 Approved by: Nathan Bolaños M.D. on 06/12/2022 at 11:14
== END ==
PROVIDERS: PCP Family Medicine; Referring Provider Family Medicine; Visit Provider Family Medicine
DX: N39.0 Urinary tract infection, site not specified (principal)
CPT/HCPCS: 76770

== ENCOUNTER → 2022-08-30 07:20 | Outpatient (CLI) | payer MEDICARE, OTHER, SELFPAY ==
[2022-08-30 09:12] LABS: Alanine Aminotransferase 29 IU/L (<35); Albumin 4.3 g/dL (3.5-5.0); Albumin Globulin Ratio 1.4 (1.0-2.8); Alkaline Phosphatase 50 U/L (38-126); Aspartate Aminotransferase 30 IU/L (14-36); BUN Creatinine Ratio 20.5 (6-22); Bilirubin Total 0.4 mg/dL (0.2-1.3); Blood Urea Nitrogen 15 mg/dL (7-17); Calcium 9.5 mg/dL (8.4-10.2); Carbon Dioxide 23 mmol/L (22-32); Chloride 107 mmol/L (98-107); Estimated Glomerular Filt Rate > 60 mL/min (>60); Glucose 111 mg/dL (80-110); HEMOLYSIS < 15 (0-50); Magnesium 2.1 mg/dL (1.6-2.3); Potassium 4.5 mmol/L (3.4-5.1); Sodium 137 mmol/L (137-145); Total Protein 7.3 g/dL (6.3-8.2)
[2022-09-02 09:45] LABS: Cholesterol, Total 135 mg/dL (100-199); HDL-Cholesterol 36 mg/dL (>39); HDL-Particle (Total) 31.2 umol/L (>=30.5); LDL Particle 809 nmol/L (<1000); LDL-Cholsterol 59 mg/dL (0-99); LP-IR Score 80 (<=45); Small LDL- Particle 532 nmol/L (<=527); Triglycerides 250 mg/dL (0-149)
== END ==
PROVIDERS: PCP Family Medicine; Referring Provider Specialist; Visit Provider Specialist
DX: I10 Essential (primary) hypertension (principal); E78.00 Pure hypercholesterolemia, unspecified
CPT/HCPCS: 36415; 80053; 80061; 83704; 83735

== ENCOUNTER 2022-09-24 13:04 | Day surgery (SDC) | payer MEDICARE, OTHER, SELFPAY ==
[2022-09-24 13:34] VITALS: BP 139/65; PULSE 73; RESP 19; TEMP 36.5; O2SAT 97; BMI 25.7
[2022-09-24] MEDS: LACTATED RINGERS 1,000 ML 42 ML IV (13:40)
--- NOTE | 2022-09-24 13:58 | PM.HP.1 ---
History of Present Illness History of Present Illness Date Patient Seen: 09/24/22 Chief complaint: Screening Colonoscopy Narrative: Mrs. Juarez presents today for a screening colonoscopy. Her last colonoscopy was at [facility] and was about 7 years ago or so. She said that other than diverticula she understood that it was clean. She is getting her follow up colonoscopy earlier than she thought because her younger sister from colon cancer in 2016. She herself has had no bleeding or changes in bowel habits or abdominal pain that are concerning. She says she has no other family who were diagnosed with colon cancer. She herself has had thyroid cancer which was removed in 1996. She also has frequent urinary tract infections for which she is on prophylactic antibiotics. She does not take a fiber supplement but does take a probiotic because of the antibiotics. She has no questions about a colonoscopy [facility] Medical History (Updated 09/24/22 @ 14:00 by Rossana Haley MD) Chicken pox Diverticular disease (~1994) Eczema (~1998) Fibroids (~1998) Foot pain (~2010) Frequent UTI (~2008) History of urinary incontinence (~2008) Hypertension (~1989) Measles Shoulder pain (~2016) Thyroid cancer (~1984) Thyroid nodule Vision disorder Surgical History Appendicitis History of cholecystectomy History of hysterectomy (~1996) History of thyroidectomy Family History Father Cancer Mother Heart disease Hypertension Hyperlipidemia Stroke Brother Diabetes mellitus Brother Hyperlipidemia Sister History of heart attack Sister Cancer Grandfather Heart disease Stroke Grandmother Heart disease Stroke Grandfather Cancer Social History household members: spouse Smoking Status: Never smoker alcohol intake: never substance use type: does not use Meds Home Medications and Allergies Home Medications Medication Instructions Recorded Confirmed Type ascorbic acid (vitamin C) 1,000 mg 1 gram PO DAILY 02/14/18 09/24/22 History tablet aspirin 81 mg tablet,delayed 81 mg PO DAILY 02/14/18 09/24/22 History release (Adult Low Dose Aspirin) calcium 600 mg PO .qd #90 tabs 02/14/18 09/24/22 Rx cholecalciferol (vitamin D3) 100 4,000 unit PO DAILY 10/02/18 05/12/23 History mcg (4,000 unit) capsule coenzyme Q10 100 mg capsule (Co 100 mg PO DAILY 02/14/18 09/24/22 History Q-10) cyanocobalamin (vitamin B-12) 1,000 mcg PO DAILY #90 tabs 02/14/18 09/24/22 Rx 1,000 mcg tablet (Vitamin B-12) estradiol 10 mcg vaginal tablet 10 mcg vaginal MOWEFR 02/14/18 09/24/22 History (Vagifem) hydrochlorothiazide 12.5 mg tablet 12.5 mg PO DAILY 02/14/18 09/24/22 History levothyroxine 88 mcg capsule 88 mcg PO DAILY 02/14/18 09/24/22 History losartan 100 mg tablet 50 mg PO DAILY 02/14/18 09/24/22 History magnesium 250 mg tablet 250 mg PO DAILY 02/14/18 09/24/22 History multivitamin (Multiple Vitamins 1 tab PO DAILY 02/14/18 09/24/22 History tablet) omega-3 fatty acids 1,000 mg 1,400 mg PO DAILY 02/14/18 09/24/22 History capsule (Fish Oil Concentrate) rosuvastatin 20 mg tablet 20 mg PO QPM 02/14/18 09/24/22 History turmeric root extract 500 mg 500 mg PO DAILY 02/14/18 09/24/22 History capsule sodium,potassium,mag sulfates 17.5 See Rx Instructions PO .COMPLEX 08/24/22 09/24/22 Rx gram-3.13 gram-1.6 gram oral soln #354 mL (Suprep Bowel Prep Kit) Allergies Allergy/AdvReac Type Severity Reaction Status Date / Time hydrocodone [HYDROCODONE] Allergy Severe NAUSEA/VOMITING/GI Verified 06/24/21 14:52 UPSET codeine [CODEINE] Allergy Mild GI UPSET Verified 06/24/21 14:52 acetaminophen [From Midol] AdvReac Verified 09/24/22 13:30 pamabrom [From Midol] AdvReac Verified 09/24/22 13:30 Exam Vital Signs (past 8 hours): - 09/24/22 13:34 Temperature 97.7 F Pulse Rate 73 Respiratory Rate 19 Blood Pressure 139/65 Pulse Oximetry 97 Oxygen Delivery Method Room Air Oxygen Delivery Method Room Air Const General: cooperative, healthy appearing and comfortable Nutritional Appearance: overweight HENMT Head: normal to inspection Resp Effort & Inspection: normal respiratory effort and able to speak in complete sentences GI Palpation: soft and No tender Assessment & Plan Assessment and plan (1) Family history of colon cancer: Problem details: Younger sister in 2015 of colon cancer Status: Acute (2) Colon cancer screening: Status: Acute Assessment & Plan narrative: Presents today for screening colonoscopy I discussed the risks benefits and alternatives including but not limited to perforation of the colon and an incomplete exam she fully understands these risks and would like to proceed.
--- NOTE | 2022-09-24 14:01 | P.OP.COLON_ITS ---
Operative Date/Time/Diagnoses Date of procedure: 09/24/22 Time of procedure: 15:50 Pre-op diagnosis: Family history of colon cancer Post-op diagnosis: same Procedure & Clinicians Study performed: Colonoscopy Same procedure as scheduled: Yes Indications: Family history of colon cancer Surgeon: Rossana Haley Procedure Notes Procedure in detail: Patient was taken to the endoscopy suite and placed in a left lateral decubitus position. With the help of an anesthesiology provider conscious sedation was induced and maintained throughout the procedure. A time-out was performed. No rectal exam was performed there were no masses or strictures. The colonoscope was introduced into the anal canal there were some very tight turns in the sigmoid colon which I was not able to traverse until the scope was switched out for a pediatric scope. That time I was able to advance the scope through the sigmoid and the rest colon to cecum. A photograph of the appendiceal orifice was obtained. Bowel prep was good [place] bowel prep score of 2. Throughout colon there were multiple large diverticula. Photographs were obtained. The scope was then withdrawn slowly over the course of 10 minutes. No polyps were seen. Patient tolerated the procedure well and went in good condition to the postoperative care unit. Findings: divertiulosis Specimen(s): none sent Post-procedure Recommendations: Colonoscopy in 5 years Plan for aftercare: Five year follow-up because of family history Disposition: PACU
[2022-09-24 15:53] VITALS: BP 105/59; PULSE 66; RESP 16; TEMP 36.3; O2SAT 93
[2022-09-24 15:58] VITALS: BP 115/65; PULSE 70; RESP 17; O2SAT 94
[2022-09-24 16:03] VITALS: BP 119/69; PULSE 78; RESP 11; O2SAT 99
[2022-09-24 16:10] VITALS: BP 120/68; PULSE 67; RESP 11; O2SAT 98
[2022-09-24 16:13] VITALS: BP 134/76; PULSE 60; RESP 14; TEMP 36.2; O2SAT 94
== END 2022-09-24 16:34 | disposition home or self-care (01) ==
PROVIDERS: PCP Family Medicine; Referring Provider Surgery; Visit Provider Surgery
PROC: 0DJD8ZZ Inspection of Lower Intestinal Tract, Via Natural or Artificial Opening Endoscopic (ICD-10-PCS; CPT 45378; principal; 2022-09-24 14:15)
DX: Z12.11 Encounter for screening for malignant neoplasm of colon (principal); Z80.0 Family history of malignant neoplasm of digestive organs; K57.30 Diverticulosis of large intestine without perforation or abscess without bleeding
CPT/HCPCS: G0105

== ENCOUNTER → 2023-02-21 13:31 | Outpatient (CLI) | payer MEDICARE, OTHER, SELFPAY ==
--- NOTE | 2023-02-21 | DI.RAD.S_ITS ---
PROCEDURE: XR SHOULDER LT MIN 2V INDICATIONS: SHOULDER PAIN TECHNIQUE: 3 views of the shoulder were acquired. COMPARISON: None. FINDINGS: Bones: No fractures or dislocations. Degenerative changes of the acromioclavicular joint. No suspicious bony lesions. Visualized ribs appear intact. Soft tissues: No suspicious soft tissue calcifications. IMPRESSION: Degenerative changes of the left acromioclavicular joint. No acute abnormality. Dictated by: Nabeel Corrigan M.D. on 02/21/2023 at 15:08 Approved by: Nabeel Corrigan M.D. on 02/21/2023 at 15:09
== END ==
PROVIDERS: PCP Family Medicine; Referring Provider Family Medicine; Visit Provider Family Medicine
DX: M25.512 Pain in left shoulder (principal)
CPT/HCPCS: 73030

== ENCOUNTER 2023-04-26 13:00 | Outpatient (RCR) | payer MEDICARE, OTHER, SELFPAY ==
--- NOTE | 2023-03-21 17:50 | PT.OIE ---
Addendum entered and electronically signed by Krystal Hare PT 03/22/23 08:32: PT direct supervision and direction to PT student. Original Note: Current Diagnoses Other shoulder lesions, left shoulder (03/21/23) Past Medical History (Last Reviewed 10/14/21 @ 19:45 by Felecia Groves MD) Chicken pox Diverticular disease (~1994) Eczema (~1998) Fibroids (~1998) Foot pain (~2010) Frequent UTI (~2008) History of urinary incontinence (~2008) Hypertension (~1989) Measles Shoulder pain (~2016) Thyroid cancer (~1984) Thyroid nodule Vision disorder Past Surgical History (Last Reviewed 10/14/21 @ 19:45 by Felecia Groves MD) Appendicitis History of cholecystectomy History of hysterectomy (~1996) History of thyroidectomy Visit Care Team Role Provider Type Billie Echeverria MD Attending Provider Physician Family Provider Primary Care Provider Referring Provider Specialty: [facility] Address: [address] [place] [address], [facility] Email: [email or web address] Physical Therapy Initial Evaluation PT-OP-A Visit Information Start: 03/16/23 17:57 Freq: Status: Active Protocol: Document 03/21/23 13:39 BS (Rec: 03/21/23 15:02 BS [id number]) Out-Patient Physical Therapy Visit Information Visit Information Visit Type Initial Evaluation Visit Start Time 13:36 Visit Stop Time 14:21 Total Visit Minutes 45 Visit Number 1 Number of CLINICAL PROGRAM COORDINATOR Visits 0 PT-OP-B Current Condition Start: 03/16/23 17:57 Freq: Status: Active Protocol: Document 03/21/23 13:39 BS (Rec: 03/21/23 15:02 BS [id number]) Current Condition History of Current Condition Onset Date Early January 2023 Current Complaints L shoulder pain History of Current Condition Got two shots in L shoulder ( RSV and Flu) early january and pain started pretty soon after with movement. Initially reaching with L arm she would have pain as well as with sleeping on that side. Pt sometimes suffers with insomnia which she thinks is related to getting older and caffeine intake and has a hard time getting comfortable as she prefers to sleep on L side . Pt now alternates sleeping sides. Now, has no pain with AROM through L shoulder with a straight arm but gets bad pain with AROM when elbow is bent. Heat and CBD oil seem to help. She also has pain with picking up objects like grocery bags or purse. No Hx of shoulder injuries. 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 Pt is R handed. Housework like cleaning and laundry hurt the shoulder during if move the arm the wrong way and will ache after. Tends to hurt later in the evening if delayed soreness. Took advil frequently which pt thinks began to hurt her stomach and told her to switch to tylenol which pt is now taking PRN. Pt had Dexa scan and had some OP in R hip. Pt wants to start getting into strength training to combine with her walking. Treatment Goals Patient/Caregiver Goals Get back to doing housework and grocery shopping without inc in pain. Learn a good full body strength training routine. PT-OP-C Subjective Start: 03/16/23 17:57 Freq: Status: Active Protocol: Document 03/21/23 13:39 BS (Rec: 03/21/23 15:02 BS [id number]) Patient Questionnaires Quick Dash- Upper Extremity Quick Dash UE Score 31.8 Quick Dash UE Impairment 20 to 39% Impaired (Score 20- 39) OP-PT Pain Assessment Location L Shoulder Intensity 6 Scale Used Numeric (0 - 10) Description Sharp,Shooting Frequency Intermittent Pain Aggravating Factors Position,ADL's,Lifting Pain Alleviating Factors Heat,Position Other Pain Alleviating Factors CBD oil PT-OP-K Range of Motion Start: 03/16/23 17:57 Freq: Status: Active Protocol: Document 03/21/23 13:39 BS (Rec: 03/21/23 15:02 BS [id number]) Shoulder Goniometric Range of Motion Shoulder Left Active Shoulder ROM WFL Yes Internal Rotation Behind Back (text) T9 Right Active Shoulder ROM WFL Yes Internal Rotation Behind Back (text) T9 PT-OP-L Special Tests Start: 03/16/23 17:57 Freq: Status: Active Protocol: Document 03/21/23 13:39 BS (Rec: 03/21/23 15:02 BS [id number]) Special Tests Shoulder Special Tests Drop arm Test Results negative Empty Can Test Results Positive Neer's Test Results Positive Marychuy Test Results Positive PT-OP-M Strength Start: 03/16/23 17:57 Freq: Status: Active Protocol: Document 03/21/23 13:39 BS (Rec: 03/21/23 15:02 BS [id number]) Shoulder Strength Shoulder Manual Muscle Testing Left Flexion 4+ Good+ Extension 5 Normal Abduction (C5) 4+ Good+ External Rotation 4 Good Internal Rotation 4+ Good+ Comments Pain with flex unable to abd with elbow flex, testing in elbow ext. Elbow/Forearm Strength Elbow and Forearm Manual Muscle Testing Left Flexion (C6) 5 Normal Extension (C7) 5 Normal PT-OP-Q Treatments Start: 03/16/23 17:57 Freq: Status: Active Protocol: Document 03/21/23 13:39 BS (Rec: 03/21/23 17:47 BS [id number]) Self-Care/Home Management Treatment Education Other Education 8 min: education provided to patient regarding exam findings, anatomy of the shoulder, ice application during flares, and expectations for future visits . PT-OP-T Assessment and Plan Start: 03/16/23 17:57 Freq: Status: Active Protocol: Document 03/21/23 13:39 BS (Rec: 03/21/23 15:02 BS [id number]) Physical Therapy Assessment Rehab Potential Rehabilitation Potential Good Evaluation Complexity Number of Personal Factors/Comorbidities 3 or More Number of Body Systems Impaired 4 or More Clinical Presentation at Evaluation Evolving Impairments Impairments Activity Tolerance,Functional Activities,Functional Mobility ,Pain,ROM,Strength Goals Quick Dash Short Term Goal (STG) Pt will report no more than mild difficulty in all areas of the quick dash to show improvement in ADLs and pain. STG Duration 04/25/23 Inspector [employer] Castings Goal (LTG) Pt will score < 10 on the quick dash in order to show improvement in ability to complete ADLs and social activities without limitation d/t shoulder mobility or pain. LTG Duration 05/30/22 Pain Impairment Pain with ADLs (laundry, cleaning, grocery shopping, etc) Short Term Goal (STG) Pt will report pain no greater than 4/10 while completing grocery shopping and cleaning her house. STG Duration 04/25/23 Inspector [employer] Goal (LTG) Pt will report no inc in pain with ADLs that involve lifting or repetitive mvmts to ensure pt is able to complete necessary daily tasks without limitation d/t pain. LTG Duration 05/30/22 HEP Short Term Goal (STG) Pt will be independent with HEP provided by PT. STG Duration 04/18/23 Inspector [employer] Goal (LTG) Pt will be independent with strength training progressions and regressions to safetly continue to build full body strength in gym outside of PT and have 5/5 MMT for all L shoulder movements. LTG Duration 05/30/2022 Assessment Summary Assessment Pt reported to PT today with complaints of L shoulder pain following a flu and RSV shot in the L arm in the beginning of January 2023. Pt has no hx of prior shoulder injury or surgery. Pt began noticing pain with sleeping on L and when reaching across her body with L arm, but now is able to move through pain free ROM with elbow ext, however, has significant pain when moving shoulder through its ROM w/ elbow flex. Pt shoulder ROM with elbow ext WNL and symmetrical bilaterally. Pt had positive Rosa-Brendan, Neer's, and Empty can, and a negative drop arm test. Pt presents with symptoms and presentation that is consistent with sub-acromial impingement. Pt will benefit from skilled PT to decrease symptoms, build strength and stability through shoulder, and improve overall mobility to allow pt to participate in her daily activities w/o limitations. Physical Therapy Plan Frequency and Duration Frequency of Treatment 2x/Week Duration of treatment (weeks) 10 Plan of Care Start Date 03/21/23 Plan of Care End Date 05/30/23 Therapeutic Interventions Therapeutic Interventions Balance Training,Coordination Training,Home Exercise Program ,Joint Mobilizations,Manual Therapy,Neuromuscular Re- education,Patient/Caregiver Education,Self-Care/Home Management,Soft Tissue Mobilization,Taping, Therapeutic Activities, Therapeutic Exercises Modalities Cold Pack/Ice Massage,Electric Stimulation,Hot Packs, Ultrasound Next Visit Focus/Plan Next Note Type Treatment Note Next Visit Plan HEP: scap strengthening, isometrics for shoulder, shoulder stability manual: shoulder mobs, assess ST joint
--- NOTE | 2023-03-21 17:50 | PT.OPPOC ---
Addendum entered and electronically signed by Krystal Hare PT 03/22/23 08:32: PT direct supervision and direction to PT student. Original Note: Physical, Occupational & Speech Therapy At [facility] Current Diagnoses Other shoulder lesions, left shoulder (03/21/23) Visit Care Team Role Provider Type Billie Echeverria MD Attending Provider Physician Family Provider Primary Care Provider Referring Provider Specialty: Family Practice Address: [address] [place] [address], [id number] Email: Plan Of Care PT-OP-T Assessment and Plan Start: 03/16/23 17:57 Freq: Status: Active Protocol: Document 03/21/23 13:39 BS (Rec: 03/21/23 15:02 BS [id number]) Physical Therapy Assessment Rehab Potential Rehabilitation Potential Good Evaluation Complexity Number of Personal Factors/Comorbidities 3 or More Number of Body Systems Impaired 4 or More Clinical Presentation at Evaluation Evolving Impairments Impairments Activity Tolerance,Functional Activities,Functional Mobility ,Pain,ROM,Strength Goals Quick Dash Short Term Goal (STG) Pt will report no more than mild difficulty in all areas of the quick dash to show improvement in ADLs and pain. STG Duration 04/25/23 Catalyst Recovery Operator Goal (LTG) Pt will score < 10 on the quick dash in order to show improvement in ability to complete ADLs and social activities without limitation d/t shoulder mobility or pain. LTG Duration 05/30/22 Pain Impairment Pain with ADLs (laundry, cleaning, grocery shopping, etc) Short Term Goal (STG) Pt will report pain no greater than 4/10 while completing grocery shopping and cleaning her house. STG Duration 04/25/23 Catalyst Recovery Operator Goal (LTG) Pt will report no inc in pain with ADLs that involve lifting or repetitive mvmts to ensure pt is able to complete necessary daily tasks without limitation d/t pain. LTG Duration 05/30/22 HEP Short Term Goal (STG) Pt will be independent with HEP provided by PT. STG Duration 04/18/23 Catalyst Recovery Operator Goal (LTG) Pt will be independent with strength training progressions and regressions to safetly continue to build full body strength in gym outside of PT and have 5/5 MMT for all L shoulder movements. LTG Duration 05/30/2022 Assessment Summary Assessment Pt reported to PT today with complaints of L shoulder pain following a flu and RSV shot in the L arm in the beginning of January 2023. Pt has no hx of prior shoulder injury or surgery. Pt began noticing pain with sleeping on L and when reaching across her body with L arm, but now is able to move through pain free ROM with elbow ext, however, has significant pain when moving shoulder through its ROM w/ elbow flex. Pt shoulder ROM with elbow ext WNL and symmetrical bilaterally. Pt had positive Rosa-Brendan, Neer's, and Empty can, and a negative drop arm test. Pt presents with symptoms and presentation that is consistent with sub-acromial impingement. Pt will benefit from skilled PT to decrease symptoms, build strength and stability through shoulder, and improve overall mobility to allow pt to participate in her daily activities w/o limitations. Physical Therapy Plan Frequency and Duration Frequency of Treatment 2x/Week Duration of treatment (weeks) 10 Plan of Care Start Date 03/21/23 Plan of Care End Date 05/30/23 Therapeutic Interventions Therapeutic Interventions Balance Training,Coordination Training,Home Exercise Program ,Joint Mobilizations,Manual Therapy,Neuromuscular Re- education,Patient/Caregiver Education,Self-Care/Home Management,Soft Tissue Mobilization,Taping, Therapeutic Activities, Therapeutic Exercises Modalities Cold Pack/Ice Massage,Electric Stimulation,Hot Packs, Ultrasound Next Visit Focus/Plan Next Note Type Treatment Note Next Visit Plan HEP: scap strengthening, isometrics for shoulder, shoulder stability manual: shoulder mobs, assess ST joint Plan of Care Dates Plan of Care Start Date 03/21/23 Plan of Care End Date 05/30/23 Electronically Signed by: Daphne Zhao 03/21/23 0568 If you are in agreement with this Plan of Care, please return a signed and dated copy. I have reviewed this Plan of Care and certify that the skilled therapy services above are required to meet the patient?s needs. Physician Signature Date Printed Name and Credentials Clinical Instructor Signature Printed Name and Credentials
--- NOTE | 2023-03-23 18:03 | PT.OTN ---
Addendum entered and electronically signed by Krystal Hare, PT 03/24/23 07:43: PT direct supervision and direction to PT student. Original Note: Current Diagnoses Other shoulder lesions, left shoulder (03/23/23) Physical Therapy Treatment Note PT-OP-A Visit Information Start: 03/16/23 17:57 Freq: Status: Active Protocol: Document 03/23/23 12:46 BS (Rec: 03/23/23 15:44 BS [id number]) Out-Patient Physical Therapy Visit Information Visit Information Visit Type Treatment Note Visit Start Time 12:49 Visit Stop Time 13:32 Total Visit Minutes 43 Visit Number 2 Number of ELEMENTARY SCHOOL TEACHER Visits 0 PT-OP-B Current Condition Start: 03/16/23 17:57 Freq: Status: Active Protocol: Document 03/21/23 13:39 BS (Rec: 03/21/23 15:02 BS [id number]) Current Condition History of Current Condition Onset Date Early January 2023 Current Complaints L shoulder pain History of Current Condition Got two shots in L shoulder ( RSV and Flu) early january and pain started pretty soon after with movement. Initially reaching with L arm she would have pain as well as with sleeping on that side. Pt sometimes suffers with insomnia which she thinks is related to getting older and caffeine intake and has a hard time getting comfortable as she prefers to sleep on L side . Pt now alternates sleeping sides. Now, has no pain with AROM through L shoulder with a straight arm but gets bad pain with AROM when elbow is bent. Heat and CBD oil seem to help. She also has pain with picking up objects like grocery bags or purse. No Hx of shoulder injuries. 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 Pt is R handed. Housework like cleaning and laundry hurt the shoulder during if move the arm the wrong way and will ache after. Tends to hurt later in the evening if delayed soreness. Took advil frequently which pt thinks began to hurt her stomach and told her to switch to tylenol which pt is now taking PRN. Pt had Dexa scan and had some OP in R hip. Pt wants to start getting into strength training to combine with her walking. Treatment Goals Patient/Caregiver Goals Get back to doing housework and grocery shopping without inc in pain. Learn a good full body strength training routine. PT-OP-C Subjective Start: 03/16/23 17:57 Freq: Status: Active Protocol: Document 03/23/23 12:46 BS (Rec: 03/23/23 15:44 BS [id number]) OP-PT Subjective Patient Comments Patient Comments Pt doing well, was a litte sore after last visit but overall no changes. PT-OP-K Range of Motion Start: 03/16/23 17:57 Freq: Status: Active Protocol: Document 03/21/23 13:39 BS (Rec: 03/21/23 15:02 BS [id number]) Shoulder Goniometric Range of Motion Shoulder Left Active Shoulder ROM WFL Yes Internal Rotation Behind Back (text) T9 Right Active Shoulder ROM WFL Yes Internal Rotation Behind Back (text) T9 PT-OP-L Special Tests Start: 03/16/23 17:57 Freq: Status: Active Protocol: Document 03/21/23 13:39 BS (Rec: 03/21/23 15:02 BS [id number]) Special Tests Shoulder Special Tests Drop arm Test Results negative Empty Can Test Results Positive Neer's Test Results Positive Shelley-Brendan Test Results Positive PT-OP-M Strength Start: 03/16/23 17:57 Freq: Status: Active Protocol: Document 03/21/23 13:39 BS (Rec: 03/21/23 15:02 BS [id number]) Shoulder Strength Shoulder Manual Muscle Testing Left Flexion 4+ Good+ Extension 5 Normal Abduction (C5) 4+ Good+ External Rotation 4 Good Internal Rotation 4+ Good+ Comments Pain with flex unable to abd with elbow flex, testing in elbow ext. Elbow/Forearm Strength Elbow and Forearm Manual Muscle Testing Left Flexion (C6) 5 Normal Extension (C7) 5 Normal PT-OP-Q Treatments Start: 03/16/23 17:57 Freq: Status: Active Protocol: Document 03/23/23 12:46 BS (Rec: 03/23/23 15:44 BS [id number]) Therapeutic Exercises Sitting Exercises Shld sets Side bilateral Reps/Minutes x5 Comments cue to elevate, roll back, and depress chin tucks Sitting Exercise Name seated chin tucks Reps/Minutes x10 Comments cues to keep mvmt small Standing Exercises Wall scap push ups Side bilateral Reps/Minutes x12 Comments hands same heights as shoulders, cues to keep arms straight & neck neutral Rows Standing Exercise Name Banded rows Side bilateral Resistance orange band Reps/Minutes x10 Comments cues to ext arms slowly and squeeze scaps Manual Therapy Treatment Joint Mobilizations Ribs Comments 1. L Rib 1 depression in supine FM 2. L Rib 2 depression in R SL FM AC Comments Gapping AC w/ depression FM SC Comments Inf glide clavicle w/ scap elevation FM ST Comments ST joint assessment PT-OP-T Assessment and Plan Start: 03/16/23 17:57 Freq: Status: Active Protocol: Document 03/23/23 12:46 BS (Rec: 03/23/23 15:44 BS [id number]) Physical Therapy Assessment Goals Quick Dash Short Term Goal (STG) Pt will report no more than mild difficulty in all areas of the quick dash to show improvement in ADLs and pain. STG Duration 04/25/23 Vice President Tax Goal (LTG) Pt will score < 10 on the quick dash in order to show improvement in ability to complete ADLs and social activities without limitation d/t shoulder mobility or pain. LTG Duration 05/30/22 Pain Impairment Pain with ADLs (laundry, cleaning, grocery shopping, etc) Short Term Goal (STG) Pt will report pain no greater than 4/10 while completing grocery shopping and cleaning her house. STG Duration 04/25/23 Detention Goal (LTG) Pt will report no inc in pain with ADLs that involve lifting or repetitive mvmts to ensure pt is able to complete necessary daily tasks without limitation d/t pain. LTG Duration 05/30/22 HEP Short Term Goal (STG) Pt will be independent with HEP provided by PT. STG Duration 04/18/23 Vice President Tax Goal (LTG) Pt will be independent with strength training progressions and regressions to safetly continue to build full body strength in gym outside of PT and have 5/5 MMT for all L shoulder movements. LTG Duration 05/30/2022 Assessment Summary Assessment Pt tolerated manual therapy well today. No big restriction were noted with ST joint assessment. Some restrictions with post depressions but improved with work on SC & AC joints. Pt continues to have pain with active L shld abd, renetta w/ flexed elbow, and through first ~60 degrees. Around 70-90 degrees pain decreases. Pain dec when pt moved passively through same range. Pt provided HEP to address scap & cerv positioning with posture as well as periscap strengthening . Physical Therapy Plan Frequency and Duration Frequency of Treatment 2x/Week Duration of treatment (weeks) 10 Plan of Care Start Date 03/21/23 Plan of Care End Date 05/30/23 Next Visit Focus/Plan Next Note Type Treatment Note Next Visit Plan Manual: reassess rib and SC mobility, assess soft tissue mobility, GH mobs & scap movement with active flex/abd Progress HEP: scap strengthening, shld iso & stability, strength to address tricep & lats
--- NOTE | 2023-03-28 13:02 | PT.OTN ---
Current Diagnoses Other shoulder lesions, left shoulder (03/28/23) Physical Therapy Treatment Note PT-OP-A Visit Information Start: 03/16/23 17:57 Freq: Status: Active Protocol: Document 03/28/23 09:49 NBM (Rec: 03/28/23 10:44 NBM [id number]) Out-Patient Physical Therapy Visit Information Visit Information Visit Type Treatment Note Visit Note Pt late. Visit Start Time 09:50 Visit Stop Time 10:34 Total Visit Minutes 44 Visit Number 3 Number of FORMER HAND Visits 1 PT-OP-B Current Condition Start: 03/16/23 17:57 Freq: Status: Active Protocol: Document 03/21/23 13:39 BS (Rec: 03/21/23 15:02 BS [id number]) Current Condition History of Current Condition Onset Date Early January 2023 Current Complaints L shoulder pain History of Current Condition Got two shots in L shoulder ( RSV and Flu) early january and pain started pretty soon after with movement. Initially reaching with L arm she would have pain as well as with sleeping on that side. Pt sometimes suffers with insomnia which she thinks is related to getting older and caffeine intake and has a hard time getting comfortable as she prefers to sleep on L side . Pt now alternates sleeping sides. Now, has no pain with AROM through L shoulder with a straight arm but gets bad pain with AROM when elbow is bent. Heat and CBD oil seem to help. She also has pain with picking up objects like grocery bags or purse. No Hx of shoulder injuries. 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 Pt is R handed. Housework like cleaning and laundry hurt the shoulder during if move the arm the wrong way and will ache after. Tends to hurt later in the evening if delayed soreness. Took advil frequently which pt thinks began to hurt her stomach and told her to switch to tylenol which pt is now taking PRN. Pt had Dexa scan and had some OP in R hip. Pt wants to start getting into strength training to combine with her walking. Treatment Goals Patient/Caregiver Goals Get back to doing housework and grocery shopping without inc in pain. Learn a good full body strength training routine. PT-OP-C Subjective Start: 03/16/23 17:57 Freq: Status: Active Protocol: Document 03/28/23 09:49 NBM (Rec: 03/28/23 10:44 [facility] [id number]) OP-PT Subjective Patient Comments Patient Comments Geeta reports soreness after last visit. She had a massage after and felt more sore. Her ex's are going well except she 's not sure if she's doing the wall scapula squeeze right. She's using a chair with more support than the sofa now. PT-OP-K Range of Motion Start: 03/16/23 17:57 Freq: Status: Active Protocol: Document 03/21/23 13:39 BS (Rec: 03/21/23 15:02 BS [id number]) Shoulder Goniometric Range of Motion Shoulder Left Active Shoulder ROM WFL Yes Internal Rotation Behind Back (text) T9 Right Active Shoulder ROM WFL Yes Internal Rotation Behind Back (text) T9 PT-OP-L Special Tests Start: 03/16/23 17:57 Freq: Status: Active Protocol: Document 03/21/23 13:39 BS (Rec: 03/21/23 15:02 BS [id number]) Special Tests Shoulder Special Tests Drop arm Test Results negative Empty Can Test Results Positive Neer's Test Results Positive Shelley-Brendan Test Results Positive PT-OP-M Strength Start: 03/16/23 17:57 Freq: Status: Active Protocol: Document 03/21/23 13:39 BS (Rec: 03/21/23 15:02 BS [id number]) Shoulder Strength Shoulder Manual Muscle Testing Left Flexion 4+ Good+ Extension 5 Normal Abduction (C5) 4+ Good+ External Rotation 4 Good Internal Rotation 4+ Good+ Comments Pain with flex unable to abd with elbow flex, testing in elbow ext. Elbow/Forearm Strength Elbow and Forearm Manual Muscle Testing Left Flexion (C6) 5 Normal Extension (C7) 5 Normal PT-OP-Q Treatments Start: 03/16/23 17:57 Freq: Status: Active Protocol: Document 03/28/23 09:49 NBM (Rec: 03/28/23 10:44 NBM [id number]) Therapeutic Exercises Sitting Exercises Jannie ER Sitting Exercise Name shoulder external rotation - HEP Side bilateral Resistance Lvl 1 [place] Tb Reps/Minutes 2x10 w/ 3SH Comments Lvl 2 orange Tb trialed but too challenging d/t UT overactivation. Shld sets Side bilateral Reps/Minutes x5 Comments cue to elevate, roll back, and depress chin tucks Sitting Exercise Name seated chin tucks Reps/Minutes x10 Comments cues to keep mvmt small Standing Exercises Wall scap push ups Standing Exercise Name tactile cues initially Side bilateral Reps/Minutes 2x12 Comments hands same heights as shoulders, cues to keep arms straight & neck neutral Rows Standing Exercise Name Banded rows Side bilateral Resistance orange band Reps/Minutes 2x10 Comments cues to ext arms slowly and squeeze scaps Manual Therapy Treatment Soft Tissue Mobilization L shoulder Body Location L UT, LS Mobilization Type Rolling,Strumming,Sustained Pressure Intensity/Depth Moderate Body Position Sidelying Joint Mobilizations GH Joint glenohumeral Direction Posterior, inferior Grade II Body Position Hooklying Comments positive feedback response Self-Care/Home Management Treatment Education Other Education Pt sleeps on left shoulder and awakes in pain, and is educated on sidelying positioning with shoulder positioning and pillow supports - HO given. Added to HEP: seated resisted shoulder external rotation - Lvl 1 peach Tb and HO given. PT-OP-T Assessment and Plan Start: 03/16/23 17:57 Freq: Status: Active Protocol: Document 03/28/23 09:49 [facility] (Rec: 03/28/23 10:44 [facility] [id number]) Physical Therapy Assessment Impairments Impairments Activity Tolerance,Functional Activities,Functional Mobility ,Pain,ROM,Strength Goals Quick Dash Short Term Goal (STG) Pt will report no more than mild difficulty in all areas of the quick dash to show improvement in ADLs and pain. STG Duration 04/25/23 Fdc Goal (LTG) Pt will score < 10 on the quick dash in order to show improvement in ability to complete ADLs and social activities without limitation d/t shoulder mobility or pain. LTG Duration 05/30/22 Pain Impairment Pain with ADLs (laundry, cleaning, grocery shopping, etc) Short Term Goal (STG) Pt will report pain no greater than 4/10 while completing grocery shopping and cleaning her house. STG Duration 04/25/23 Fdc Goal (LTG) Pt will report no inc in pain with ADLs that involve lifting or repetitive mvmts to ensure pt is able to complete necessary daily tasks without limitation d/t pain. LTG Duration 05/30/22 HEP Short Term Goal (STG) Pt will be independent with HEP provided by PT. STG Duration 04/18/23 Tappet Adjuster Goal (LTG) Pt will be independent with strength training progressions and regressions to safetly continue to build full body strength in gym outside of PT and have 5/5 MMT for all L shoulder movements. LTG Duration 05/30/2022 Assessment Summary Assessment Geeta presents today for 3rd PT visit. Treatment focus on HEP review, sleep positioning education, and manual therapy. She requires consistent cues for scapular setting and chin tuck for neutral spinal alignment prior to initiating shoulder ex's but self- awareness improves throughout session. She is challenged with wall scapular push ups but form improves with tacticle cueing and pt demonstrates carryover in session. Pt sleeps on left shoulder and awakes in pain, and is educated on sidelying positioning with shoulder positioning and pillow supports - HO given. Palpable tension to L Upper Trapezius mm improves with manual therapy. Added to HEP: seated resisted shoulder external rotation - Lvl 1 peach Tb and HO given. Physical Therapy Plan Frequency and Duration Frequency of Treatment 2x/Week Duration of treatment (weeks) 10 Plan of Care Start Date 03/21/23 Plan of Care End Date 05/30/23 Therapeutic Interventions Therapeutic Interventions Balance Training,Coordination Training,Home Exercise Program ,Joint Mobilizations,Manual Therapy,Neuromuscular Re- education,Patient/Caregiver Education,Self-Care/Home Management,Soft Tissue Mobilization,Taping, Therapeutic Activities, Therapeutic Exercises Modalities Cold Pack/Ice Massage,Electric Stimulation,Hot Packs, Ultrasound Next Visit Focus/Plan Next Note Type Treatment Note Next Visit Plan Manual: reassess rib and SC mobility, assess soft tissue mobility, GH mobs & scap movement with active flex/abd Progress HEP: scap strengthening, shld iso & stability, strength to address tricep & lats
--- NOTE | 2023-04-01 13:49 | PT.OTN ---
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 Initially reaching with L arm she would have pain as well as with sleeping on that side. Pt sometimes suffers with insomnia which she thinks is related to getting older and caffeine intake and has a hard time getting comfortable as she prefers to sleep on L side . Pt now alternates sleeping sides. Now, has no pain with AROM through L shoulder with a straight arm but gets bad pain with AROM when elbow is bent. Heat and CBD oil seem to help. She also has pain with picking up objects like grocery bags or purse. No Hx of shoulder injuries. 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 Pt is R handed. Housework like cleaning and laundry hurt the shoulder during if move the arm the wrong way and will ache after. Tends to hurt later in the evening if delayed soreness. Took advil frequently which pt thinks began to hurt her stomach and told her to switch to tylenol which pt is now taking PRN. Pt had Dexa scan and had some OP in R hip. Pt wants to start getting into strength training to combine with her walking. Treatment Goals Patient/Caregiver Goals Get back to doing housework and grocery shopping without inc in pain. Learn a good full body strength training routine. PT-OP-C Subjective Start: 03/16/23 17:57 Freq: Status: Active Protocol: Document 04/01/23 10:09 NBM (Rec: 04/01/23 11:20 NBM [id number]) OP-PT Subjective Patient Comments Patient Comments Geeta reports she has not had to take any advil or tylenol for pain, and she used a heat pack. 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 She's been trying the supported sleeping position and has not been waking up in pain. Patient Reported Progress Improving PT-OP-K Range of Motion Start: 03/16/23 17:57 Freq: Status: Active Protocol: Document 03/21/23 13:39 BS (Rec: 03/21/23 15:02 BS [id number]) Shoulder Goniometric Range of Motion Shoulder Left Active Shoulder ROM WFL Yes Internal Rotation Behind Back (text) T9 Right Active Shoulder ROM WFL Yes Internal Rotation Behind Back (text) T9 PT-OP-L Special Tests Start: 03/16/23 17:57 Freq: Status: Active Protocol: Document 03/21/23 13:39 BS (Rec: 03/21/23 15:02 BS [id number]) Special Tests Shoulder Special Tests Drop arm Test Results negative Empty Can Test Results Positive Neer's Test Results Positive Shelley-Brendan Test Results Positive PT-OP-M Strength Start: 03/16/23 17:57 Freq: Status: Active Protocol: Document 03/21/23 13:39 BS (Rec: 03/21/23 15:02 BS [id number]) Shoulder Strength Shoulder Manual Muscle Testing Left Flexion 4+ Good+ Extension 5 Normal Abduction (C5) 4+ Good+ External Rotation 4 Good Internal Rotation 4+ Good+ Comments Pain with flex unable to abd with elbow flex, testing in elbow ext. Elbow/Forearm Strength Elbow and Forearm Manual Muscle Testing Left Flexion (C6) 5 Normal Extension (C7) 5 Normal PT-OP-Q Treatments Start: 03/16/23 17:57 Freq: Status: Active Protocol: Document 04/01/23 10:09 NBM (Rec: 04/01/23 11:20 NBM [id number]) Gym Equipment Cable Column (Body Solid) Rows Details HEP Resistance 10# Reps/Time x10, cues for breathwork Lat pulldown Details cues for chin tuck - HEP Resistance 10# Reps/Time x10 Therapeutic Exercises Sitting Exercises Esthela ER Sitting Exercise Name shoulder external rotation Side bilateral Resistance Lvl 1 [place] Tb Reps/Minutes 2x10 w/ 3SH Shld sets Side bilateral Reps/Minutes x5 Comments cue to elevate, roll back, and depress chin tucks Sitting Exercise Name seated chin tucks Reps/Minutes x10 Comments cues to keep mvmt small Standing Exercises D1/D2 UE flexion/extension Standing Exercise Name PNF Side left Resistance none Reps/Minutes x10 Comments tactile cues for scap setting resolves L esthela pain w/ D2 D2 UE flexion Standing Exercise Name PNF Side left Resistance Lvl 1 peach Tb at wall Reps/Minutes x8 Comments cues for scapular setting Wall scap push ups Standing Exercise Name initial cues for form Side bilateral Reps/Minutes 2x12 Comments hands same heights as shoulders, cues to keep arms straight & neck neutral Rows Standing Exercise Name 1.Banded rows 2. esthela ext Side bilateral Resistance orange band Reps/Minutes 2x10 Comments cues to ext arms slowly and squeeze scaps Manual Therapy Treatment Soft Tissue Mobilization L shoulder Body Location L UT, LS Mobilization Type Rolling,Strumming,Sustained Pressure Intensity/Depth Moderate Body Position Sitting Joint Mobilizations GH Joint L glenohumeral Direction Posterior, inferior Grade II Body Position Sitting Self-Care/Home Management Treatment Education Patient Education Home Exercise Program Other Education Initiated gym HEP: lat pulldowns and cable rows - HO given. PT-OP-T Assessment and Plan Start: 03/16/23 17:57 Freq: Status: Active Protocol: Document 04/01/23 10:09 [facility] (Rec: 04/01/23 11:20 [facility] [id number]) Physical Therapy Assessment Impairments Impairments Activity Tolerance,Functional Activities,Functional Mobility ,Pain,ROM,Strength Goals Quick Dash Short Term Goal (STG) Pt will report no more than mild difficulty in all areas of the quick dash to show improvement in ADLs and pain. STG Duration 04/25/23 Cyber Incident Handler Goal (LTG) Pt will score < 10 on the quick dash in order to show improvement in ability to complete ADLs and social activities without limitation d/t shoulder mobility or pain. LTG Duration 05/30/22 Pain Impairment Pain with ADLs (laundry, cleaning, grocery shopping, etc) Short Term Goal (STG) Pt will report pain no greater than 4/10 while completing grocery shopping and cleaning her house. STG Duration 04/25/23 Cyber Incident Handler Goal (LTG) Pt will report no inc in pain with ADLs that involve lifting or repetitive mvmts to ensure pt is able to complete necessary daily tasks without limitation d/t pain. LTG Duration 05/30/22 HEP Short Term Goal (STG) Pt will be independent with HEP provided by PT. STG Duration 04/18/23 Cyber Incident Handler Goal (LTG) Pt will be independent with strength training progressions and regressions to safetly continue to build full body strength in gym outside of PT and have 5/5 MMT for all L shoulder movements. LTG Duration 05/30/2022 Assessment Summary Assessment Geeta requires consistent cues for Upper trapezius mm overactivation, scapular setting, and chin tuck throughout session. D2 resisted L UE movement pattern L shoulder pain resolves when cues for scapular setting with movement. She demonstrates appropriate form with cable column ex's requiring cues for breathwork. Initiated gym HEP: Lat pulldowns and seated cable rows - HO given w/ cues. Physical Therapy Plan Frequency and Duration Frequency of Treatment 2x/Week Duration of treatment (weeks) 10 Plan of Care Start Date 03/21/23 Plan of Care End Date 05/30/23 Therapeutic Interventions Therapeutic Interventions Balance Training,Coordination Training,Home Exercise Program ,Joint Mobilizations,Manual Therapy,Neuromuscular Re- education,Patient/Caregiver Education,Self-Care/Home Management,Soft Tissue Mobilization,Taping, Therapeutic Activities, Therapeutic Exercises Modalities Cold Pack/Ice Massage,Electric Stimulation,Hot Packs, Ultrasound Next Visit Focus/Plan Next Note Type Treatment Note Next Visit Plan Manual: reassess rib and SC mobility, assess soft tissue mobility, GH mobs & scap movement with active flex/abd Progress HEP: scap strengthening, shld iso & stability, strength to address tricep & lats
--- NOTE | 2023-04-05 09:05 | PT.OTN ---
Current Diagnoses Other shoulder lesions, left shoulder (04/05/23) Physical Therapy Treatment Note PT-OP-A Visit Information Start: 03/16/23 17:57 Freq: Status: Active Protocol: Document 04/05/23 08:20 SP (Rec: 04/05/23 09:08 SP [id number]) Out-Patient Physical Therapy Visit Information Visit Information Visit Type Treatment Note Visit Start Time 08:20 Visit Stop Time 09:05 Total Visit Minutes 45 Visit Number 5 Number of COMPRESSION MOLDING MACHINE OPERATOR Visits 3 PT-OP-B Current Condition Start: 03/16/23 17:57 Freq: Status: Active Protocol: Document 03/21/23 13:39 BS (Rec: 03/21/23 15:02 BS [id number]) Current Condition History of Current Condition Onset Date Early January 2023 Current Complaints L shoulder pain History of Current Condition Got two shots in L shoulder ( RSV and Flu) early january and pain started pretty soon after with movement. Initially reaching with L arm she would have pain as well as with sleeping on that side. Pt sometimes suffers with insomnia which she thinks is related to getting older and caffeine intake and has a hard time getting comfortable as she prefers to sleep on L side . Pt now alternates sleeping sides. Now, has no pain with AROM through L shoulder with a straight arm but gets bad pain with AROM when elbow is bent. Heat and CBD oil seem to help. She also has pain with picking up objects like grocery bags or purse. No Hx of shoulder injuries. 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 Pt is R handed. Housework like cleaning and laundry hurt the shoulder during if move the arm the wrong way and will ache after. Tends to hurt later in the evening if delayed soreness. Took advil frequently which pt thinks began to hurt her stomach and told her to switch to tylenol which pt is now taking PRN. Pt had Dexa scan and had some OP in R hip. Pt wants to start getting into strength training to combine with her walking. Treatment Goals Patient/Caregiver Goals Get back to doing housework and grocery shopping without inc in pain. Learn a good full body strength training routine. PT-OP-C Subjective Start: 03/16/23 17:57 Freq: Status: Active Protocol: Document 04/05/23 08:20 SP (Rec: 04/05/23 09:08 SP [id number]) OP-PT Subjective Patient Comments Patient Comments Pt reports felt ok after last tx, was little sore by end of the day, probably due to doing other things at home but not pain over L quad. She stated reaching outside [employer] from bent to extending elbow to reach seems to be the motion that still not back to normal much better. Patient Reported Progress Improving PT-OP-K Range of Motion Start: 03/16/23 17:57 Freq: Status: Active Protocol: Document 03/21/23 13:39 BS (Rec: 03/21/23 15:02 BS [id number]) Shoulder Goniometric Range of Motion Shoulder Left Active Shoulder ROM WFL Yes Internal Rotation Behind Back (text) T9 Right Active Shoulder ROM WFL Yes Internal Rotation Behind Back (text) T9 PT-OP-L Special Tests Start: 03/16/23 17:57 Freq: Status: Active Protocol: Document 03/21/23 13:39 BS (Rec: 03/21/23 15:02 BS [id number]) Special Tests Shoulder Special Tests Drop arm Test Results negative Empty Can Test Results Positive Neer's Test Results Positive Rosa-Brendan Test Results Positive PT-OP-M Strength Start: 03/16/23 17:57 Freq: Status: Active Protocol: Document 03/21/23 13:39 BS (Rec: 03/21/23 15:02 BS [id number]) Shoulder Strength Shoulder Manual Muscle Testing Left Flexion 4+ Good+ Extension 5 Normal Abduction (C5) 4+ Good+ External Rotation 4 Good Internal Rotation 4+ Good+ Comments Pain with flex unable to abd with elbow flex, testing in elbow ext. Elbow/Forearm Strength Elbow and Forearm Manual Muscle Testing Left Flexion (C6) 5 Normal Extension (C7) 5 Normal PT-OP-Q Treatments Start: 03/16/23 17:57 Freq: Status: Active Protocol: Document 04/05/23 08:20 SP (Rec: 04/05/23 09:08 SP [id number]) Cardio Equipment Upper Body Ergometer (UBE) Duration (Minutes) 6 RPM 80 Seat Position 10 Height 3.5 Other 1 min f/b alternating Therapeutic Exercises Supine Exercises IR/ ER AROM Supine Exercise Name added various angles Side left Resistance AROM Reps/Minutes 5 reps x2 Comments cued slow pacing control- painfree range Standing Exercises upright row Standing Exercise Name added to HEP Side bilateral Resistance AROM Equipment Used mirror for self level shld and feedback form Reps/Minutes 2x5 reps Comments cued elbows elevate toward ceiling as best tolerate. D1/D2 UE flexion/extension Standing Exercise Name PNF: D1 ext only Side left Resistance TB #1 Reps/Minutes x10 Comments tactile cues for scap setting D2 UE flexion Standing Exercise Name facing wall AROM contact Side left Resistance Hold TB #1, angled facing contact wall AROM Reps/Minutes x8 Comments cues for scapular setting Wall scap push ups Standing Exercise Name initial cues for form Side bilateral Reps/Minutes 2x12 Comments improved neck alignment, cued increase range SA. PT-OP-T Assessment and Plan Start: 03/16/23 17:57 Freq: Status: Active Protocol: Document 04/05/23 08:20 SP (Rec: 04/05/23 09:08 SP [id number]) Physical Therapy Assessment Goals Quick Dash Short Term Goal (STG) Pt will report no more than mild difficulty in all areas of the quick dash to show improvement in ADLs and pain. STG Duration 04/25/23 Licensing Coordinator Goal (LTG) Pt will score < 10 on the quick dash in order to show improvement in ability to complete ADLs and social activities without limitation d/t shoulder mobility or pain. LTG Duration 05/30/22 Pain Impairment Pain with ADLs (laundry, cleaning, grocery shopping, etc) Short Term Goal (STG) Pt will report pain no greater than 4/10 while completing grocery shopping and cleaning her house. STG Duration 04/25/23 Licensing Coordinator Goal (LTG) Pt will report no inc in pain with ADLs that involve lifting or repetitive mvmts to ensure pt is able to complete necessary daily tasks without limitation d/t pain. LTG Duration 05/30/22 HEP Short Term Goal (STG) Pt will be independent with HEP provided by PT. STG Duration 04/18/23 Retirement Goal (LTG) Pt will be independent with strength training progressions and regressions to safetly continue to build full body strength in gym outside of PT and have 5/5 MMT for all L shoulder movements. 04/05/23: added upright row, supine IR/ ER, modified AAROM D2 flexion use wall support, improved fluid mv't. LTG Duration 05/30/2022 updated 04/06/23 Assessment Summary Assessment Pt improved scap setting inferior glide LT & rhomboid engagement with tactile cues and watching therapist demonstrate her vs proper corrections. Pt had difficulty with D2 flexion against resistance and free standing AROM, hold resistance and modified use contact wall and with able progress from segmental 2 step to fluid AAROM D2 flexion with less to no pain more muscle tiring. Improved SA scapular mobility with cues for bigger movement. Physical Therapy Plan Frequency and Duration Frequency of Treatment 2x/Week Duration of treatment (weeks) 10 Plan of Care Start Date 03/21/23 Plan of Care End Date 05/30/23 Therapeutic Interventions Therapeutic Interventions Balance Training,Coordination Training,Home Exercise Program ,Joint Mobilizations,Manual Therapy,Neuromuscular Re- education,Patient/Caregiver Education,Self-Care/Home Management,Soft Tissue Mobilization,Taping, Therapeutic Activities, Therapeutic Exercises Modalities Cold Pack/Ice Massage,Electric Stimulation,Hot Packs, Ultrasound Next Visit Focus/Plan Next Note Type Treatment Note Next Visit Plan Recheck modified D2 flexion use wall contact and added upright row. POC: Manual: reassess rib and SC mobility, assess soft tissue mobility, GH mobs & scap movement with active flex /abd Progress HEP: scap strengthening, shld iso & stability, strength to address tricep & lats
--- NOTE | 2023-04-19 11:59 | PT-OP ANOTE ---
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 She compliant with HEP 3x/wk and will be able to attend next 2 appts. She stated hesitant making more appts at this time due to jury duty after 04/26 a long with another medical appt later Dec doesn't want to conflict with.
--- NOTE | 2023-04-22 11:20 | PT.OTN ---
Current Diagnoses Other shoulder lesions, left shoulder (04/22/23) Physical Therapy Treatment Note PT-OP-A Visit Information Start: 03/16/23 17:57 Freq: Status: Active Protocol: Document 04/22/23 10:37 SP (Rec: 04/22/23 11:30 SP [id number]) Out-Patient Physical Therapy Visit Information Visit Information Visit Type Treatment Note Visit Start Time 10:37 Visit Stop Time 11:20 Total Visit Minutes 43 Visit Number 6 Number of GEOLOGY ASSOCIATE Visits 4 PT-OP-B Current Condition Start: 03/16/23 17:57 Freq: Status: Active Protocol: Document 03/21/23 13:39 BS (Rec: 03/21/23 15:02 BS [id number]) Current Condition History of Current Condition Onset Date Early January 2023 Current Complaints L shoulder pain History of Current Condition Got two shots in L shoulder ( RSV and Flu) early january and pain started pretty soon after with movement. Initially reaching with L arm she would have pain as well as with sleeping on that side. Pt sometimes suffers with insomnia which she thinks is related to getting older and caffeine intake and has a hard time getting comfortable as she prefers to sleep on L side . Pt now alternates sleeping sides. Now, has no pain with AROM through L shoulder with a straight arm but gets bad pain with AROM when elbow is bent. Heat and CBD oil seem to help. She also has pain with picking up objects like grocery bags or purse. No Hx of shoulder injuries. 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 Pt is R handed. Housework like cleaning and laundry hurt the shoulder during if move the arm the wrong way and will ache after. Tends to hurt later in the evening if delayed soreness. Took advil frequently which pt thinks began to hurt her stomach and told her to switch to tylenol which pt is now taking PRN. Pt had Dexa scan and had some OP in R hip. Pt wants to start getting into strength training to combine with her walking. Treatment Goals Patient/Caregiver Goals Get back to doing housework and grocery shopping without inc in pain. Learn a good full body strength training routine. PT-OP-C Subjective Start: 03/16/23 17:57 Freq: Status: Active Protocol: Document 04/22/23 10:37 SP (Rec: 04/22/23 11:30 SP [id number]) OP-PT Subjective Patient Comments Patient Comments Pt reports with work only exercising 3x/wk. She states pain shifted down from deltoid and bicep. She was able to help get boxes down from attic, able receive OH then slowly lower to her chest /abdoment and place on ground. PT-OP-K Range of Motion Start: 03/16/23 17:57 Freq: Status: Active Protocol: Document 03/21/23 13:39 BS (Rec: 03/21/23 15:02 BS [id number]) Shoulder Goniometric Range of Motion Shoulder Left Active Shoulder ROM WFL Yes Internal Rotation Behind Back (text) T9 Right Active Shoulder ROM WFL Yes Internal Rotation Behind Back (text) T9 PT-OP-L Special Tests Start: 03/16/23 17:57 Freq: Status: Active Protocol: Document 03/21/23 13:39 BS (Rec: 03/21/23 15:02 BS [id number]) Special Tests Shoulder Special Tests Drop arm Test Results negative Empty Can Test Results Positive Neer's Test Results Positive Shelley-Brendan Test Results Positive PT-OP-M Strength Start: 03/16/23 17:57 Freq: Status: Active Protocol: Document 03/21/23 13:39 BS (Rec: 03/21/23 15:02 BS [id number]) Shoulder Strength Shoulder Manual Muscle Testing Left Flexion 4+ Good+ Extension 5 Normal Abduction (C5) 4+ Good+ External Rotation 4 Good Internal Rotation 4+ Good+ Comments Pain with flex unable to abd with elbow flex, testing in elbow ext. Elbow/Forearm Strength Elbow and Forearm Manual Muscle Testing Left Flexion (C6) 5 Normal Extension (C7) 5 Normal PT-OP-Q Treatments Start: 03/16/23 17:57 Freq: Status: Active Protocol: Document 04/22/23 10:37 SP (Rec: 04/22/23 11:30 SP [id number]) Cardio Equipment Upper Body Ergometer (UBE) Duration (Minutes) 6 RPM 60 Seat Position 10 Height 3.5 Other 1 min f/b alternating- 60 PRMs 3 min> 100 RPMs- tiring Therapeutic Exercises Standing Exercises forearm wall walk Standing Exercise Name added to HEP Side bilateral Resistance Tb #2 aqua Reps/Minutes 15 ft x1 lap Comments cued slow little bigger than shld width body blade Standing Exercise Name fwd, IR/ER, OH punch (90/90) Side left Resistance yellow Equipment Used inPT Reps/Minutes 30 sec each Comments good muscle tiring- post L shld/deltoid- painfree abd Standing Exercise Name adde to HEP Side left Resistance Tb #1 anchored under opp foot Reps/Minutes x10 Comments occ cue for no [employer] recruitment Ys off wall Standing Exercise Name added to HEP Side bilateral Resistance TB #2 aqua TB Equipment Used facing wall Reps/Minutes x10 Comments good D2 UE flexion Standing Exercise Name PNF: D2 flexion Side left Resistance Hold TB #1 anchored under foot Reps/Minutes x10 Comments cues for increase range Wall scap push ups Standing Exercise Name Incline pushups Side bilateral Resistance rail Equipment Used 1. scapular 2. regular elbow bent Reps/Minutes 2x12 Comments good neck alignment, tactile cues for scap glide PT-OP-T Assessment and Plan Start: 03/16/23 17:57 Freq: Status: Active Protocol: Document 04/22/23 10:37 SP (Rec: 04/22/23 11:30 SP [id number]) Physical Therapy Assessment Goals Quick Dash Short Term Goal (STG) Pt will report no more than mild difficulty in all areas of the quick dash to show improvement in ADLs and pain. STG Duration 04/25/23 Assisted Goal (LTG) Pt will score < 10 on the quick dash in order to show improvement in ability to complete ADLs and social activities without limitation d/t shoulder mobility or pain. LTG Duration 05/30/22 Pain Impairment Pain with ADLs (laundry, cleaning, grocery shopping, etc) Short Term Goal (STG) Pt will report pain no greater than 4/10 while completing grocery shopping and cleaning her house. 04/22/23: GOAL MET not have pain. STG Duration 04/25/23 GOAL MET 04/22/23 Assisted Goal (LTG) Pt will report no inc in pain with ADLs that involve lifting or repetitive mvmts to ensure pt is able to complete necessary daily tasks without limitation d/t pain. LTG Duration 05/30/22 HEP Short Term Goal (STG) Pt will be independent with HEP provided by PT. STG Duration 04/18/23 Android Ios Developer Goal (LTG) Pt will be independent with strength training progressions and regressions to safetly continue to build full body strength in gym outside of PT and have 5/5 MMT for all L shoulder movements. 04/05/23: added upright row, supine IR/ ER, modified AAROM D2 flexion use wall support, improved fluid mv't. 04/22/23: progressing: added resisted Ys off wall, wall walking, D2 flexion and ABD TB , incline push ups. LTG Duration 05/30/2022 progressing 04/22/23 Assessment Summary Assessment Pt making great gains in progression strengthening this tx, painfree, only report muscle tiring. She reports is able to lower wt box from OH to start decorating with no pain. Almost back to full activities. She would benefit from 1 more appt scheduled to finalize HEP, will bring papers and DC to HEP. Physical Therapy Plan Frequency and Duration Frequency of Treatment 2x/Week Duration of treatment (weeks) 10 Plan of Care Start Date 03/21/23 Plan of Care End Date 05/30/23 Therapeutic Interventions Therapeutic Interventions Balance Training,Coordination Training,Home Exercise Program ,Joint Mobilizations,Manual Therapy,Neuromuscular Re- education,Patient/Caregiver Education,Self-Care/Home Management,Soft Tissue Mobilization,Taping, Therapeutic Activities, Therapeutic Exercises Modalities Cold Pack/Ice Massage,Electric Stimulation,Hot Packs, Ultrasound Next Visit Focus/Plan Next Note Type Discharge Summary Next Visit Plan PT to complete DC. FInalize HEP, Check WB activities: plank. resisted bent over rows , standing 90 IR/ ER.
--- NOTE | 2023-04-26 13:46 | PT.OTN ---
Current Diagnoses Other shoulder lesions, left shoulder (04/26/23) Physical Therapy Treatment Note PT-OP-A Visit Information Start: 03/16/23 17:57 Freq: Status: Active Protocol: Document 04/26/23 13:04 [facility] (Rec: 04/26/23 13:46 [facility] [id number]) Out-Patient Physical Therapy Visit Information Visit Information Visit Type Discharge Summary Visit Start Time 13:03 Visit Stop Time 13:34 Total Visit Minutes 31 Visit Number 7 Number of DIGITAL IMAGER Visits 0 PT-OP-B Current Condition Start: 03/16/23 17:57 Freq: Status: Active Protocol: Document 03/21/23 13:39 BS (Rec: 03/21/23 15:02 BS [id number]) Current Condition History of Current Condition Onset Date Early January 2023 Current Complaints L shoulder pain History of Current Condition Got two shots in L shoulder ( RSV and Flu) early january and pain started pretty soon after with movement. Initially reaching with L arm she would have pain as well as with sleeping on that side. Pt sometimes suffers with insomnia which she thinks is related to getting older and caffeine intake and has a hard time getting comfortable as she prefers to sleep on L side . Pt now alternates sleeping sides. Now, has no pain with AROM through L shoulder with a straight arm but gets bad pain with AROM when elbow is bent. Heat and CBD oil seem to help. She also has pain with picking up objects like grocery bags or purse. No Hx of shoulder injuries. 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 Pt is R handed. Housework like cleaning and laundry hurt the shoulder during if move the arm the wrong way and will ache after. Tends to hurt later in the evening if delayed soreness. Took advil frequently which pt thinks began to hurt her stomach and told her to switch to tylenol which pt is now taking PRN. Pt had Dexa scan and had some OP in R hip. Pt wants to start getting into strength training to combine with her walking. Treatment Goals Patient/Caregiver Goals Get back to doing housework and grocery shopping without inc in pain. Learn a good full body strength training routine. PT-OP-C Subjective Start: 03/16/23 17:57 Freq: Status: Active Protocol: Document 04/26/23 13:04 [facility] (Rec: 04/26/23 13:46 [facility] [id number]) OP-PT Subjective Patient Comments Patient Comments Pt reports doing well with exercises and has not had pain PT-OP-K Range of Motion Start: 03/16/23 17:57 Freq: Status: Active Protocol: Document 03/21/23 13:39 BS (Rec: 03/21/23 15:02 BS [id number]) Shoulder Goniometric Range of Motion Shoulder Left Active Shoulder ROM WFL Yes Internal Rotation Behind Back (text) T9 Right Active Shoulder ROM WFL Yes Internal Rotation Behind Back (text) T9 PT-OP-L Special Tests Start: 03/16/23 17:57 Freq: Status: Active Protocol: Document 03/21/23 13:39 BS (Rec: 03/21/23 15:02 BS [id number]) Special Tests Shoulder Special Tests Drop arm Test Results negative Empty Can Test Results Positive Neer's Test Results Positive Marychuy Test Results Positive PT-OP-M Strength Start: 03/16/23 17:57 Freq: Status: Active Protocol: Document 04/26/23 13:04 [facility] (Rec: 04/26/23 13:46 [facility] [id number]) Shoulder Strength Shoulder Manual Muscle Testing Left Flexion 5 Normal Extension 5 Normal Abduction (C5) 5 Normal External Rotation 5 Normal Internal Rotation 5 Normal Horizontal Abduction 5 Normal Horizontal Adduction 5 Normal Comments can abd with elbow flex PT-OP-Q Treatments Start: 03/16/23 17:57 Freq: Status: Active Protocol: Document 04/26/23 13:04 [facility] (Rec: 04/26/23 13:46 [facility] [id number]) Gym Equipment Cable Column (Body Solid) Lat pulldown Details cues for chin tuck - HEP Resistance 30# Reps/Time x10 Therapeutic Exercises Standing Exercises fly Side bilateral Resistance 3# Reps/Minutes 10 Comments cues slow and controlled triceps Standing Exercise Name bent over standing then bend over at bench Side left Reps/Minutes 6 ea Comments cues for neutral spine biceps Side bilateral Equipment Used 3# Reps/Minutes 8 Comments alt-cues for scap set ER Side bilateral Equipment Used L1,L3 Reps/Minutes 10 ea forearm wall walk Standing Exercise Name added to HEP Side bilateral Resistance lvl 3 Reps/Minutes 15 ft x1 lap Comments cued slow little bigger than shld width Ys off wall Standing Exercise Name added to HEP Side bilateral Resistance lvl 3 Equipment Used facing wall Reps/Minutes x10 Comments good D2 UE flexion Standing Exercise Name PNF: D2 flexion Side left Resistance Hold TB #1 anchored under foot Reps/Minutes x10 Rows Standing Exercise Name 1.Banded rows Side bilateral Resistance green band Reps/Minutes 10 Comments cues to ext arms slowly and squeeze scaps PT-OP-T Assessment and Plan Start: 03/16/23 17:57 Freq: Status: Active Protocol: Document 04/26/23 13:04 [facility] (Rec: 04/26/23 13:46 [facility] [id number]) Physical Therapy Assessment Goals Quick Dash Short Term Goal (STG) Pt will report no more than mild difficulty in all areas of the quick dash to show improvement in ADLs and pain. STG Duration achieved Desk Reporter Goal (LTG) Pt will score < 10 on the quick dash in order to show improvement in ability to complete ADLs and social activities without limitation d/t shoulder mobility or pain. LTG Duration achieved Pain Impairment Pain with ADLs (laundry, cleaning, grocery shopping, etc) Short Term Goal (STG) Pt will report pain no greater than 4/10 while completing grocery shopping and cleaning her house. 04/22/23: GOAL MET not have pain. STG Duration 04/25/23 GOAL MET 04/22/23 Custodial Goal (LTG) Pt will report no inc in pain with ADLs that involve lifting or repetitive mvmts to ensure pt is able to complete necessary daily tasks without limitation d/t pain. LTG Duration achieved HEP Short Term Goal (STG) Pt will be independent with HEP provided by PT. STG Duration 04/18/23 Custodial Goal (LTG) Pt will be independent with strength training progressions and regressions to safetly continue to build full body strength in gym outside of PT and have 5/5 MMT for all L shoulder movements. 04/05/23: added upright row, supine IR/ ER, modified AAROM D2 flexion use wall support, improved fluid mv't. 04/22/23: progressing: added resisted Ys off wall, wall walking, D2 flexion and ABD TB , incline push ups. LTG Duration achieved Assessment Summary Assessment At this time, pt has met all goals and rarely feels any pain and can improve it on her own when she does get min pain. She is strong w/full ROM and good functional ability. She is indep w/HEP and required min cues for posture during exercises, but otherwise does well with exercises. DC to HEP at this time. Physical Therapy Plan Discharge Physical Therapy Discharge Reasons Goals Met
== END 2023-05-05 13:31 | disposition home or self-care (01) ==
LOC: PHYS 13:00
PROVIDERS: Family Provider Family Medicine; PCP Family Medicine; Referring Provider Family Medicine; Visit Provider Family Medicine
DX: M75.82 Other shoulder lesions, left shoulder (principal)
CPT/HCPCS: 97110; 97140; 97162; 97535

== ENCOUNTER → 2023-06-19 16:56 | Outpatient (CLI) | payer MEDICARE, OTHER, SELFPAY | PROVIDERS: Family Provider Family Medicine; PCP Family Medicine; Visit Provider Nurse Practitioner Family | DX: N39.0 Urinary tract infection, site not specified (principal) | CPT/HCPCS: 87086 ==

== ENCOUNTER → 2023-07-25 | Outpatient (CLI) | payer MEDICARE, OTHER, SELFPAY ==
--- NOTE | 2023-07-25 | DI.MRI.S_ITS ---
BREAST MRI OF BOTH BREASTS: 07/25/2023 CLINICAL: Dense Breasts. PROCEDURE: MR BREAST BI WO/W CON INDICATIONS: DENSE BREASTS TECHNIQUE: The patient was placed prone in a dedicated breast imaging coil. Precontrast axial STIR and 3D FLASH without fat saturation sequences were obtained. Both before and after bolus injection of contrast, sequential 1-minute axial 3D FLASH with fat saturation sequences for 3 time points, with subtraction images and maximum intensity projections (MIP's) generated. Delayed sagittal FLASH images with fat saturation were also obtained. Computer-aided detection, including computer algorithm analysis of MRI image data for lesion detection and characterization, pharmacokinetic analysis, with further physician review for interpretation, was performed. COMPARISON: None. FINDINGS: Image quality: Excellent. There is marked background parenchymal enhancement. Right breast: No suspicious enhancement or mass lesions. Left breast: There is a 9 mm in diameter T1 hyperintense, T2 hypointense nonenhancing circumscribed mass at 9:00 o'clock in the left breast at a middle depth (series 11/image 62 and series 4/image 62). Findings suggest the presence of a proteinaceous cyst. No suspicious enhancement or mass lesions. Miscellaneous: No axillary adenopathy. No intramammary adenopathy. Limited visualization of the heart, lungs, mediastinum and upper abdomen are unremarkable. IMPRESSION: NEGATIVE 1. Negative breast MRI. This exam was interpreted at Station ID:[id number] Electronically Signed By: Patti reed/:07/25/2023 16:45:00 Entry: - 08/03/2023 15:53:24 letter sent: Normal Exam ACR BI-RADS Category 1: Negative [id number]
== END ==
LOC: MRI 10:43
PROVIDERS: Family Provider Family Medicine; PCP Family Medicine; Referring Provider Family Medicine; Visit Provider Family Medicine
DX: R92.2 Inconclusive mammogram (principal); N63.25 Unspecified lump in the left breast, overlapping quadrants; R92.30 Dense breasts, unspecified; Z80.3 Family history of malignant neoplasm of breast
CPT/HCPCS: 77049; A9579

== ENCOUNTER → 2023-08-31 07:50 | Outpatient (CLI) | payer MEDICARE, OTHER, SELFPAY ==
--- NOTE | 2023-08-31 07:51 | DI.US.S_ITS ---
PROCEDURE: US RENAL COMPLETE INDICATIONS: Personal history of urinary (tract) infections TECHNIQUE: Real-time scanning was performed of the kidneys and bladder, with image documentation. COMPARISON: [facility], , RENAL COMPLETE, 06/11/2022, 17:07. FINDINGS: Kidneys: Kidneys are normal in size. Right kidney measures 11.6 cm long; left kidney measures 11.0 cm long. Right renal cortical thickness is 1.3 cm; left renal cortical thickness is 1.4 cm. Renal cortical echotexture is normal. No hydronephrosis or nephrolithiasis. Simple cyst is present in the right kidney measuring 1.3 x 1.2 x 11.3 cm. No suspicious solid mass lesions. Bladder: Pre-void bladder volume is 138 mL. Post-void residual is 6 mL. Pre-void images demonstrate no intraluminal masses or stones. On pre-void images, bilateral ureteral jets are noted with color Doppler interrogation. (Of note, ureteral jets may not be detectable in up to 25% of cases due to insufficient differences in specific gravity between ureteral and bladder urine). Miscellaneous: No free pelvic fluid. IMPRESSION: Simple right renal cysts. Otherwise, unremarkable. Dictated by: Dana Potts M.D. on 08/31/2023 at 13:37 Approved by: Dana Potts M.D. on 08/31/2023 at 13:38
== END ==
LOC: US 07:50
PROVIDERS: Family Provider Family Medicine; PCP Family Medicine; Referring Provider Family Medicine; Visit Provider Family Medicine
DX: N39.0 Urinary tract infection, site not specified (principal); Z87.440 Personal history of urinary (tract) infections; N28.1 Cyst of kidney, acquired
CPT/HCPCS: 76770

== ENCOUNTER → 2023-09-19 07:18 | Outpatient (CLI) | payer MEDICARE, OTHER, SELFPAY ==
--- NOTE | 2023-09-19 07:20 | DI.US.S_ITS ---
PROCEDURE: US ABDOMEN LIMITED INDICATIONS: NAFL TECHNIQUE: Real-time scanning was performed of the abdominal and retroperitoneal organs, with image documentation. COMPARISON: [facility], US, US ABDOMEN COMPLETE, 01/03/2018, 11:03. FINDINGS: Liver: Increased liver echogenicity with posterior attenuation, most consistent with moderate to severe steatosis. Gallbladder: Absent. Biliary ducts: Intrahepatic bile ducts are non-dilated. Extrahepatic bile duct caliber measures 4 mm. Normal is 6-7 mm or less in diameter, or 10 mm or less post-cholecystectomy. Pancreas: Visualized portions of the pancreas are sonographically normal. Miscellaneous: No free abdominal fluid. IMPRESSION: At least moderate hepatic steatosis. Correlate with elevated liver enzymes, as findings could indicate steatohepatitis. Dictated by: Darryn Edwards M.D. on 09/19/2023 at 11:47 Approved by: Darryn Edwards M.D. on 09/19/2023 at 11:48
== END ==
LOC: US 07:19
PROVIDERS: Family Provider Family Medicine; PCP Family Medicine; Referring Provider Family Medicine; Visit Provider Family Medicine
DX: K76.0 Fatty (change of) liver, not elsewhere classified (principal); Z90.49 Acquired absence of other specified parts of digestive tract
CPT/HCPCS: 76705

== ENCOUNTER → 2024-07-24 10:18 | Outpatient (CLI) | payer MEDICARE, OTHER, SELFPAY ==
--- NOTE | 2024-07-24 10:20 | DI.MG.S_ITS ---
MM screening mammo BI: 07/24/2024. BI-RADS: 1 CLINICAL: 74-year old female for bilateral screening mammogram. Tyrer-Cuzick lifetime risk of 5.0%. No personal or first-degree family history of breast cancer. The patient had a prior left breast biopsy. PRIOR EXAMS 07/25/2023, 06/02/2022, 03/30/2021, 02/13/2020, 01/01/2019, 10/05/2017, 09/22/2017, 09/20/2016, 09/19/2015. MAMMOGRAPHY TECHNIQUE: 2D and 3D (tomosynthesis) digital mammographic views obtained, with additional images as needed for full coverage. Current study was also evaluated with a Computer Aided Detection (CAD) system. DENSITY D. The breasts are extremely dense, which lowers the sensitivity of mammography. MAMMOGRAPHY FINDINGS Bilateral: No suspicious mass, asymmetry, microcalcification, or other abnormality seen. IMPRESSION: * No evidence of malignancy. RECOMMENDATIONS Bilateral * Annual screening mammography. OVERALL ASSESSMENT CATEGORY BI-RADS-1: Negative. The [employer] recommends annual screening mammography beginning at age 40 for women with average risk of breast cancer. ELECTRONICALLY SIGNED: Marcelle Ward M.D. on 07/25/2024 at 11:40:01 PM PT Interpreting Station ID: [id number]
== END ==
PROVIDERS: Family Provider Family Medicine; PCP Family Medicine; Referring Provider Family Medicine; Visit Provider Family Medicine
DX: Z12.31 Encounter for screening mammogram for malignant neoplasm of breast (principal); R92.30 Dense breasts, unspecified
CPT/HCPCS: 77063; 77067

== ENCOUNTER 2024-08-09 08:15 | Outpatient (RCR) | payer MEDICARE, OTHER, SELFPAY ==
--- NOTE | 2024-06-11 19:07 | PT.OIE ---
Current Diagnoses Other chronic pain (06/11/24) Pain in left knee (06/11/24) Past Medical History (Last Reviewed 10/14/21 @ 19:45 by Felecia Groves MD) Chicken pox Diverticular disease (~1994) Eczema (~1998) Fibroids (~1998) Foot pain (~2010) Frequent UTI (~2008) History of urinary incontinence (~2008) Hypertension (~1989) Measles Shoulder pain (~2016) Thyroid cancer (~1984) Thyroid nodule Vision disorder Past Surgical History (Last Reviewed 10/14/21 @ 19:45 by Felecia Groves MD) Appendicitis History of cholecystectomy History of hysterectomy (~1996) History of thyroidectomy Visit Care Team Role Provider Type Billie Echeverria MD Family Provider Physician Primary Care Provider Specialty: [facility] Address: [address] [place] [address] Email: [email or web address] Marie MD Attending Provider Physician Referring Provider Specialty: [facility] Address: [address] [place] [address] Email: [email or web address] Physical Therapy Initial Evaluation PT-OP-A Visit Information Start: 06/07/24 19:11 Freq: Status: Active Protocol: Document 06/11/24 11:35 LRN (Rec: 06/11/24 12:31 LRN [id number]) Out-Patient Physical Therapy Visit Information Visit Information Visit Type Initial Evaluation Visit Start Time 11:35 Visit Stop Time 12:28 Visit Number 1 Evaluation Information Evaluation Date 06/11/24 Precautions Precautions Cancer history: partial thyroidectomy and found to be cancerous - 1994, 1996 - remaining thyroid removed due to CA, Controlled HBP. PT-OP-B Current Condition Start: 06/07/24 19:11 Freq: Status: Active Protocol: Document 06/11/24 11:35 LRN (Rec: 06/11/24 12:31 LRN [id number]) Current Condition History of Current Condition Onset Date 2 months ago. Current Complaints L knee pain, no swelling/ bruising. History of Current Condition When stepped out of spouse's fiber picker felt a burn and didn't worry about it. The L knee felt stiff after sitting, so kept evercising. Over time became more sore around the medial/inferior aspect of the patella and sometimes radiating down the anterior tibia 1/[address] way down the leg. Two weeks ago walked aournd the block and that night couldn't walk on the leg. States she has been taking tylenol. Her grass cutter is Dr. Echeverria, but she saw Dr Julien Marie because he MD was on vacation. Prior Treatments and Tests Was told to wear a knee brace, but her movement was restricted, so now she wears a different one that has an opening for the patella. Her DA, BSN in [place] and is at [facility], told her to get a creme (Advil pain reliever ms creme) to put on the knee. Future Testing and Treatments Planned Next is Dr Echeverria visit for regular check up in July. Treatment Goals Patient/Caregiver Goals Pt goals: -be able to walk daily (used to walk 2.25 miles around the [facility]). -do muscle strengthening (like standing squats previously). -independent with a HEP. 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 HBP controlled by meds. CA history; therefore limited in use of modality treatments. PT-OP-C Subjective Start: 06/07/24 19:11 Freq: Status: Active Protocol: Document 06/11/24 11:35 LRN (Rec: 06/11/24 12:31 LRN [id number]) Patient Questionnaires Lower Extremity Functional Scale LEFS Score 35 LEFS Impairment 40 to 59% Impaired (Score 32- 47) OP-PT Pain Assessment Pain Assessment Grid Paper Pain Assessment Grid Completed Yes Location L knee Pain Location Details Around the sup, medial, posterior patella. Intensity 4 Scale Used Numeric (0 - 10) Description Aching Frequency Intermittent Radiating Location Down L anterior lower leg Pain Aggravating Factors Walking Other Pain Aggravating Factors Walking, IV/EV of foot and twisting of the knee. Pain Alleviating Factors Cold Other Pain Alleviating Factors Sitting, sleeping, IBP, cryptherapy 2x in morning and evening. PT-OP-G Mobility & Gait Start: 06/07/24 19:11 Freq: Status: Active Protocol: Document 06/11/24 11:35 LRN (Rec: 06/11/24 12:31 LRN [id number]) OP Gait Assessment Gait Gait Assistance Required: Independent Assistive Devices Assistive Device None Gait Deviations General Gait Pattern Antalgic Comments Gait Comments Limping off the LLE. Wears a L LE soft knee brace Stair Climbing Evaluation Comments Stair Climbing Comments Pt reports ambs step over step using railing for support/ stability due to pain. PT-OP-J Posture/Palpation/Skin Start: 06/07/24 19:11 Freq: Status: Active Protocol: Document 06/11/24 11:35 LRN (Rec: 06/11/24 12:31 LRN [id number]) Posture Evaluation Position Standing Pelvis Posture (L) PSIS Posterior Weight Distribution Balanced Ankle/Foot Posture (R) Calcaneal Inversion Foot Arch (L) Medium Arch,(R) Medium Arch Palpation Assessment Location L knee Palpation Location Tibial plateu medial joint line, medial to patella, medial fat pad Palpation Findings Edema,Tenderness PT-OP-K Range of Motion Start: 06/07/24 19:11 Freq: Status: Active Protocol: Document 06/11/24 11:35 LRN (Rec: 06/11/24 12:31 LRN [id number]) Knee Goniometric Range of Motion Knee Right Knee ROM WFL Yes Patient Position Supine Flexion Active (degrees) 142 Extension Active (degrees) 2 Extension Passive (degrees) 0 Left Patient Position Supine Flexion Active (degrees) 138 Extension Active (degrees) 2 Extension Passive (degrees) 0 Ankle and Foot Goniometric Range of Motion Ankle and Foot Right Active Ankle/Foot ROM WFL Yes Left Active Ankle/Foot ROM WFL Yes PT-OP-L Special Tests Start: 06/07/24 19:11 Freq: Status: Active Protocol: Document 06/11/24 11:35 LRN (Rec: 06/11/24 12:31 LRN [id number]) Special Tests Knee Special Tests Posterior Draw Test Results - Jaylene Test Test Results + left Ethan's Test Results - Anterior Draw Test Results - Patellar Grind Test Test Results - PT-OP-M Strength Start: 06/07/24 19:11 Freq: Status: Active Protocol: Document 06/11/24 11:35 LRN (Rec: 06/11/24 12:31 LRN [id number]) Hip Strength Hip Manual Muscle Testing Right Comments Strength is 5/5. Left Extension (S1) 4+ Good+ Adduction 4 Good Knee Strength Knee Manual Muscle Testing Right Comments Generally 5/5. Left Comments Generally 5/5. Ankle/Foot Strength Ankle and Foot Manual Muscle Testing Right Dorsiflexion (L4) 5 Normal Plantarflexion (S1) 5 Normal Comments Generally 5/5 Left Comments Generally 5/5 PT-OP-Q Treatments Start: 06/07/24 19:11 Freq: Status: Active Protocol: Document 06/11/24 11:35 LRN (Rec: 06/11/24 12:31 LRN [id number]) Self-Care/Home Management Treatment Education Other Education Discussed results of evaluation, goals, treatment, and plan of care (POC) with pt , attendance/cx/dns policy; pt agreeable to evaluation, goals, treatment, attendance/ cx/dns policy and POC. Activities Self-Care/Home Management Activities Issued & reviewed HEP: Heel slides (for L knee ROM), L KTC , SLR, Clamshell, supine hip AB, bridging. PT-OP-T Assessment and Plan Start: 06/07/24 19:11 Freq: Status: Active Protocol: Document 06/11/24 11:35 LRN (Rec: 06/11/24 12:31 LRN [id number]) Physical Therapy Assessment Rehab Potential Rehabilitation Potential Good Evaluation Complexity Number of Personal Factors/Comorbidities 1-2 Number of Body Systems Impaired 4 or More Clinical Presentation at Evaluation Evolving Impairments Impairments Activity Tolerance,Balance, Pain,ROM,Soft Tissue Mobility Other Impairments Endurance Goals Three Impairment Pt limited in ability to ex and squat. Short Term Goal (STG) Pt will improve L knee AROM to normal (2-142?) STG Duration 07/12/24 Intermediate Goal (LTG) Pt diane be able to return to prior exercise routine of LE muscle strengthening (like standing squats previously). LTG Duration 08/10/24 Two Impairment Activity tolerance limit in her previous walking ability ( 2.25 miles) Short Term Goal (STG) Pt will be able to walk on level ground 1 mile with mild discomfort managed by self care techniques (MAY). STG Duration 07/12/24 Branch Rental Manager Goal (LTG) Pt will be able to return to her prior function of walking daily 2.25 miles around [place]. LTG Duration 08/10/24 One Impairment Pt lacks appropriate self care HEP. Short Term Goal (STG) Pt will be educated and will demonstrate proper self care pain management for pain (RICE treatment & nighttime positioning training). STG Duration 07/12/24 Branch Rental Manager Goal (LTG) Pt will be independent in a self care HEP for L knee/ankle /hip strengthening and mobility ex's. 06/11/24: reviewed HEP: Heel slides (for L knee ROM), L KTC, SLR, Clamshell, supine hip AB, bridging. LTG Duration 08/10/24 Assessment Summary Assessment Pt is a 73 yo female who presents with probable L knee medial meniscus tear (+ Jaylene Test), decreased L knee AROM (flex), low tolerance to twisting motion and walking. The pt's knee was mildly increased in temperature medially and minimal swelling. Her R LE appears generally swollen compared tot he L LE. The pt will benefit from skilled physical therapy to progress the pt towards return to function, but if she is not able to progress she will be referred back for further assessment. Physical Therapy Plan Frequency and Duration Frequency of Treatment 2x/Week Duration of treatment (weeks) 8 Plan of Care Start Date 06/11/24 Plan of Care End Date 08/10/24 Therapeutic Interventions Therapeutic Interventions Balance Training,Gait Training ,Home Exercise Program,Manual Therapy,Self-Care/Home Management,Soft Tissue Mobilization,Taping, Therapeutic Activities, Therapeutic Exercises Modalities Cold Pack/Ice Massage, Ultrasound Other Therapeutic Interventions Joint mobilization to ankle/ hip as needed. Next Visit Focus/Plan Next Note Type Treatment Note Next Visit Plan Next: Assess BP/HR, hip IR/ER strength and balance, review of HEP, then tolerance to upright bike at low rpm 70 or higher. POC: L knee possible medial meniscus tear rehab: Therapeutic Ex (strengthening - low resistance/fili/ROM), Therapeutic Activity ( nighttime positioning), manual therapy (STM/JMT), Gait & Balance training, Pt Education (HEP, Edema and pain mgmt).
--- NOTE | 2024-06-11 19:08 | PT.OPPOC ---
Physical, Occupational & Speech Therapy At [facility] Current Diagnoses Other chronic pain (06/11/24) Pain in left knee (06/11/24) Visit Care Team Role Provider Type Billie Echeverria MD Family Provider Physician Primary Care Provider Specialty: Family Practice Address: [facility], [address] Email: [email or web address] Tuan Marie MD Attending Provider Physician Referring Provider Specialty: [facility] Practice Address: [facility] [place], [address] Email: [email or web address] Plan Of Care PT-OP-B Current Condition Start: 06/07/24 19:11 Freq: Status: Active Protocol: Document 06/11/24 11:35 LRN (Rec: 06/11/24 12:31 LRN [id number]) Current Condition History of Current Condition Onset Date 2 months ago. Current Complaints L knee pain, no swelling/ bruising. History of Current Condition When stepped out of spouse's cone picker felt a burn and didn't worry about it. The L knee felt stiff after sitting, so kept evercising. Over time became more sore around the medial/inferior aspect of the patella and sometimes radiating down the anterior tibia 1/[address] way down the leg. Two weeks ago walked aournd the block and that night couldn't walk on the leg. States she has been taking tylenol. Her care center manager is Dr. Echeverria, but she saw Dr Julien Marie because he MD was on vacation. Prior Treatments and Tests Was told to wear a knee brace, but her movement was restricted, so now she wears a different one that has an opening for the patella. Her DA, BSN in [place] clinic and is at [facility], told her to get a creme (Advil pain reliever ms creme) to put on the knee. Future Testing and Treatments Planned Next is Dr Echeverria visit for regular check up in July. Treatment Goals Patient/Caregiver Goals Pt goals: -be able to walk daily (used to walk 2.25 miles around the [facility]). -do muscle strengthening (like standing squats previously). -independent with a HEP. 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 HBP controlled by meds. [place] history; therefore limited in use of modality treatments. PT-OP-T Assessment and Plan Start: 06/07/24 19:11 Freq: Status: Active Protocol: Document 06/11/24 11:35 LRN (Rec: 06/11/24 12:31 LRN [id number]) Physical Therapy Assessment Rehab Potential Rehabilitation Potential Good Evaluation Complexity Number of Personal Factors/Comorbidities 1-2 Number of Body Systems Impaired 4 or More Clinical Presentation at Evaluation Evolving Impairments Impairments Activity Tolerance,Balance, Pain,ROM,Soft Tissue Mobility Other Impairments Endurance Goals Three Impairment Pt limited in ability to ex and squat. Short Term Goal (STG) Pt will improve L knee AROM to normal (2-142?) STG Duration 07/12/24 Custodial Goal (LTG) Pt diane be able to return to prior exercise routine of LE muscle strengthening (like standing squats previously). LTG Duration 08/10/24 Two Impairment Activity tolerance limit in her previous walking ability ( 2.25 miles) Short Term Goal (STG) Pt will be able to walk on level ground 1 mile with mild discomfort managed by self care techniques (RICE). STG Duration 07/12/24 Custodial Goal (LTG) Pt will be able to return to her prior function of walking daily 2.25 miles around [facility]. LTG Duration 08/10/24 One Impairment Pt lacks appropriate self care HEP. Short Term Goal (STG) Pt will be educated and will demonstrate proper self care pain management for pain (RICE treatment & nighttime positioning training). STG Duration 07/12/24 Contract Paralegal Goal (LTG) Pt will be independent in a self care HEP for L knee/ankle /hip strengthening and mobility ex's. 06/11/24: reviewed HEP: Heel slides (for L knee ROM), L KTC, SLR, Clamshell, supine hip AB, bridging. LTG Duration 08/10/24 Assessment Summary Assessment Pt is a 73 yo female who presents with probable L knee medial meniscus tear (+ Jaylene Test), decreased L knee AROM (flex), low tolerance to twisting motion and walking. The pt's knee was mildly increased in temperature medially and minimal swelling. Her R LE appears generally swollen compared tot he L LE. The pt will benefit from skilled physical therapy to progress the pt towards return to function, but if she is not able to progress she will be referred back for further assessment. Physical Therapy Plan Frequency and Duration Frequency of Treatment 2x/Week Duration of treatment (weeks) 8 Plan of Care Start Date 06/11/24 Plan of Care End Date 08/10/24 Therapeutic Interventions Therapeutic Interventions Balance Training,Gait Training ,Home Exercise Program,Manual Therapy,Self-Care/Home Management,Soft Tissue Mobilization,Taping, Therapeutic Activities, Therapeutic Exercises Modalities Cold Pack/Ice Massage, Ultrasound Other Therapeutic Interventions Joint mobilization to ankle/ hip as needed. Next Visit Focus/Plan Next Note Type Treatment Note Next Visit Plan Next: Assess BP/HR, hip IR/ER strength and balance, review of HEP, then tolerance to upright bike at low rpm 70 or higher. POC: L knee possible medial meniscus tear rehab: Therapeutic Ex (strengthening - low resistance/fili/ROM), Therapeutic Activity ( nighttime positioning), manual therapy (STM/JMT), Gait & Balance training, Pt Education (HEP, Edema and pain mgmt). Plan of Care Dates Plan of Care Start Date 06/11/24 Plan of Care End Date 08/10/24 Electronically Signed by: Patti Saleem, PT 06/11/24 2373 If you are in agreement with this Plan of Care, please return a signed and dated copy. I have reviewed this Plan of Care and certify that the skilled therapy services above are required to meet the patient?s needs. Physician Signature Date Printed Name and Credentials Clinical Instructor Signature Printed Name and Credentials
--- NOTE | 2024-06-19 11:42 | PT.OTN ---
Current Diagnoses Other chronic pain (06/19/24) Pain in left knee (06/19/24) Physical Therapy Treatment Note PT-OP-A Visit Information Start: 06/07/24 19:11 Freq: Status: Active Protocol: Document 06/19/24 10:45 LRN (Rec: 06/19/24 11:39 LRN [id number]) Out-Patient Physical Therapy Visit Information Visit Information Visit Type Treatment Note Visit Note Vitals L arm: HR 769-1, SpO2 91-92%, BP 120/80 Visit Start Time 10:45 Visit Stop Time 11:27 Visit Number 2 Evaluation Information Evaluation Date 06/11/24 Precautions Precautions Cancer history: partial thyroidectomy and found to be cancerous - 1996 - remaining thyroid removed due to [place], Controlled HBP. PT-OP-B Current Condition Start: 06/07/24 19:11 Freq: Status: Active Protocol: Document 06/11/24 11:35 LRN (Rec: 06/11/24 12:31 LRN [id number]) Current Condition History of Current Condition Onset Date 2 months ago. Current Complaints L knee pain, no swelling/ bruising. History of Current Condition When stepped out of spouse's picker feeder felt a burn and didn't worry about it. The L knee felt stiff after sitting, so kept evercising. Over time became more sore around the medial/inferior aspect of the patella and sometimes radiating down the anterior tibia 1/[address] down the leg. Two weeks ago walked aournd the block and that night couldn't walk on the leg. States she has been taking tylenol. Her field research assistant is Dr. Echeverria, but she saw Dr Julien Marie because he MD was on vacation. Prior Treatments and Tests Was told to wear a knee brace, but her movement was restricted, so now she wears a different one that has an opening for the patella. Her DA, BSN in [place] clinic and is at [facility], told her to get a creme (Advil pain reliever ms creme) to put on the knee. Future Testing and Treatments Planned Next is Dr Echeverria visit for regular check up in July. Treatment Goals Patient/Caregiver Goals Pt goals: -be able to walk daily (used to walk 2.25 miles around the [facility] [place] -do muscle strengthening (like standing squats previously). -independent with a HEP. 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 HBP controlled by meds. [place] history; therefore limited in use of modality treatments. PT-OP-C Subjective Start: 06/07/24 19:11 Freq: Status: Active Protocol: Document 06/19/24 10:45 LRN (Rec: 06/19/24 11:39 LRN [id number]) OP-PT Subjective Patient Comments Patient Comments Rode bike 4 miles yesterday and no soreness today. Doing really well. Can move the L leg all around. Able to squat and get things out of bottom shelves. Wants to walk around [facility] (2.2 miles), Dr. Echeverria wants me to walk 3 miles, and do more hiking. PT-OP-D Balance Start: 06/07/24 19:11 Freq: Status: Active Protocol: Document 06/19/24 10:45 LRN (Rec: 06/19/24 11:39 LRN [id number]) Balance Tests Single Limb Standing Single Limb- Right 60+ secs Single Limb- Left 60 secs PT-OP-G Mobility & Gait Start: 06/07/24 19:11 Freq: Status: Active Protocol: Document 06/11/24 11:35 LRN (Rec: 06/11/24 12:31 LRN [id number]) OP Gait Assessment Gait Gait Assistance Required: Independent Assistive Devices Assistive Device None Gait Deviations General Gait Pattern Antalgic Comments Gait Comments Limping off the LLE. Wears a L LE soft knee brace Stair Climbing Evaluation Comments Stair Climbing Comments Pt reports ambs step over step using railing for support/ stability due to pain. PT-OP-J Posture/Palpation/Skin Start: 06/07/24 19:11 Freq: Status: Active Protocol: Document 06/11/24 11:35 LRN (Rec: 06/11/24 12:31 LRN [id number]) Posture Evaluation Position Standing Pelvis Posture (L) PSIS Posterior Weight Distribution Balanced Ankle/Foot Posture (R) Calcaneal Inversion Foot Arch (L) Medium Arch,(R) Medium Arch Palpation Assessment Location L knee Palpation Location Tibial plateu medial joint line, medial to patella, medial fat pad Palpation Findings Edema,Tenderness PT-OP-K Range of Motion Start: 06/07/24 19:11 Freq: Status: Active Protocol: Document 06/11/24 11:35 LRN (Rec: 06/11/24 12:31 LRN [id number]) Knee Goniometric Range of Motion Knee Right Knee ROM WFL Yes Patient Position Supine Flexion Active (degrees) 142 Extension Active (degrees) 2 Extension Passive (degrees) 0 Left Patient Position Supine Flexion Active (degrees) 138 Extension Active (degrees) 2 Extension Passive (degrees) 0 Ankle and Foot Goniometric Range of Motion Ankle and Foot Right Active Ankle/Foot ROM WFL Yes Left Active Ankle/Foot ROM WFL Yes PT-OP-L Special Tests Start: 06/07/24 19:11 Freq: Status: Active Protocol: Document 06/11/24 11:35 LRN (Rec: 06/11/24 12:31 LRN [id number]) Special Tests Knee Special Tests Posterior Draw Test Results - Jaylene Test Test Results + left Ethan's Test Results - Anterior Draw Test Results - Patellar Grind Test Test Results - PT-OP-M Strength Start: 06/07/24 19:11 Freq: Status: Active Protocol: Document 06/19/24 10:45 LRN (Rec: 06/19/24 11:39 LRN [id number]) Hip Strength Hip Manual Muscle Testing Left External Rotation 4+ Good+ Internal Rotation 5 Normal PT-OP-Q Treatments Start: 06/07/24 19:11 Freq: Status: Active Protocol: Document 06/19/24 10:45 LRN (Rec: 06/19/24 11:39 LRN [id number]) Therapeutic Exercises Supine Exercises HEP Supine Exercise Name Reviewed: Heel slides, SKTC, DKTC, SLR, hip AB/AD, bridging Side left Reps/Minutes 10x each Sidelying Exercises Reverse Clamshell Side bilateral Reps/Minutes 10x each Comments phys & v cuing needed HEP Sidelying Exercise Name Reviewed: Clamshell, hip AD. Side bilateral Reps/Minutes 10x each Neuro Re-Education Treatment Balance Activities SLS Surface Level Reps/Duration 3' Comments Good Static SLS Self-Care/Home Management Treatment Education Other Education Discussed & educated pt in self care mgmt of RICE program . Activities Self-Care/Home Management Activities Issued handout for RICE treatment for pain management. PT-OP-T Assessment and Plan Start: 06/07/24 19:11 Freq: Status: Active Protocol: Document 06/19/24 10:45 LRN (Rec: 06/19/24 11:39 LRN [id number]) Physical Therapy Assessment Goals Three Impairment Pt limited in ability to ex and squat. Short Term Goal (STG) Pt will improve L knee AROM to normal (2-142?). 06/19/24: L knee AROM: 0-140 deg's. STG Duration 07/12/24 (06/19/24: MET GOAL) Point Of Care Technician Goal (LTG) Pt diane be able to return to prior exercise routine of LE muscle strengthening (like standing squats previously). 06/19/24: Pt able to ride ex bike 4 miles. LTG Duration 08/10/24 Two Impairment Activity tolerance limit in her previous walking ability ( 2.25 miles) Short Term Goal (STG) Pt will be able to walk on level ground 1 mile with mild discomfort managed by self care techniques (RICE). STG Duration 07/12/24 Care Home Goal (LTG) Pt will be able to return to her prior function of walking daily 2.25 miles around [facility] [place]. LTG Duration 08/10/24 One Impairment Pt lacks appropriate self care HEP. Short Term Goal (STG) Pt will be educated and will demonstrate proper self care pain management for pain (RICE treatment & nighttime positioning training). 06/19/24: Pt educated in self care pain mgmt of RICE treatment. STG Duration 07/12/24 progressed 06/19/24 (need educ nighttime positioning) Point Of Care Technician Goal (LTG) Pt will be independent in a self care HEP for L knee/ankle /hip strengthening and mobility ex's. 06/11/24: reviewed HEP: Heel slides (for L knee ROM), L KTC, SLR, Clamshell, supine hip AB, bridging. LTG Duration 08/10/24 progressed 06/11/24 Assessment Summary Assessment Pt is a 73 yo female who presented initially with possible L knee medial meniscus tear (+ Jaylene Test ), decreased L knee AROM (flex ), low tolerance to twisting motion and walking. Today, the pt attends showing normal L knee AROM, no c/o pain, return to beginning of biking (4 miles), her SLS is normal bilaterally. Vitals are normal. Pt wanting to be able to walk around [place] and total of 3 miles and hike on uneven ground; therefore further LLE strengthening, conditioning, dynamic balance and uneven ground training is needed. Physical Therapy Plan Frequency and Duration Frequency of Treatment 2x/Week Duration of treatment (weeks) 8 Plan of Care Start Date 06/11/24 Plan of Care End Date 08/10/24 Next Visit Focus/Plan Next Note Type Treatment Note Next Visit Plan Next: Progress tolerance to upright bike at low rpm 70 or higher, TM for distance (1->3 miles), and progress LE strengthening & dyanamic balance. POC: L knee possible medial meniscus tear rehab: Therapeutic Ex (strengthening - low resistance/fili/ROM), Therapeutic Activity ( nighttime positioning), manual therapy (STM/JMT), Gait & Balance training, Pt Education (HEP, Edema mgmt).
--- NOTE | 2024-06-25 09:37 | PT-OP ANOTE ---
Pt cancelled today's appt feeling sick with congestion started yesterday. She gave feedback rode recumbent bike at the gym over the weekend and felt good so went 7 miles but 2 days later noticed increased pain in her knee so is icing and doing ROM HEP for recovery. She confirmed 06/28 appt with hopes of feeling better.
--- NOTE | 2024-06-28 10:40 | PT.OTN ---
Current Diagnoses Other chronic pain (06/28/24) Pain in left knee (06/28/24) Physical Therapy Treatment Note PT-OP-A Visit Information Start: 06/07/24 19:11 Freq: Status: Active Protocol: Document 06/28/24 09:55 LRN (Rec: 06/28/24 10:39 LRN [id number]) Out-Patient Physical Therapy Visit Information Visit Information Visit Type Treatment Note Visit Start Time 09:55 Visit Stop Time 10:35 Visit Number 3 Evaluation Information Evaluation Date 06/11/24 Precautions Precautions Cancer history: partial thyroidectomy and found to be cancerous - 1994, 1996 - remaining thyroid removed due to [place], Controlled HBP. PT-OP-B Current Condition Start: 06/07/24 19:11 Freq: Status: Active Protocol: Document 06/11/24 11:35 LRN (Rec: 06/11/24 12:31 LRN [id number]) Current Condition History of Current Condition Onset Date 2 months ago. Current Complaints L knee pain, no swelling/ bruising. History of Current Condition When stepped out of spouse's supervisor opening and picking felt a burn and didn't worry about it. The L knee felt stiff after sitting, so kept evercising. Over time became more sore around the medial/inferior aspect of the patella and sometimes radiating down the anterior tibia 1/[address] way down the leg. Two weeks ago walked aournd the block and that night couldn't walk on the leg. States she has been taking tylenol. Her oncology nurse is Dr. Echeverria, but she saw Dr Julien Marie because he MD was on vacation. Prior Treatments and Tests Was told to wear a knee brace, but her movement was restricted, so now she wears a different one that has an opening for the patella. Her DA, BSN in [place] clinic and is at [facility], told her to get a creme (Advil pain reliever ms creme) to put on the knee. Future Testing and Treatments Planned Next is Dr Echeverria visit for regular check up in July. Treatment Goals Patient/Caregiver Goals Pt goals: -be able to walk daily (used to walk 2.25 miles around the [facility] [place] -do muscle strengthening (like standing squats previously). -independent with a HEP. 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 HBP controlled by meds. [place] history; therefore limited in use of modality treatments. PT-OP-C Subjective Start: 06/07/24 19:11 Freq: Status: Active Protocol: Document 06/28/24 09:55 LRN (Rec: 06/28/24 10:39 LRN [id number]) OP-PT Subjective Patient Comments Patient Comments Has been sick and she still has congestion and cough & runny nose. Knee was sore after riding ex bike 7 miles ( 50'), happened before she got sick. Wants to be able to do walking on TM (goal 5 miles bike, 2 miles TM). PT-OP-D Balance Start: 06/07/24 19:11 Freq: Status: Active Protocol: Document 06/19/24 10:45 LRN (Rec: 06/19/24 11:39 LRN [id number]) Balance Tests Single Limb Standing Single Limb- Right 60+ secs Single Limb- Left 60 secs PT-OP-G Mobility & Gait Start: 06/07/24 19:11 Freq: Status: Active Protocol: Document 06/11/24 11:35 LRN (Rec: 06/11/24 12:31 LRN [id number]) OP Gait Assessment Gait Gait Assistance Required: Independent Assistive Devices Assistive Device None Gait Deviations General Gait Pattern Antalgic Comments Gait Comments Limping off the LLE. Wears a L LE soft knee brace Stair Climbing Evaluation Comments Stair Climbing Comments Pt reports ambs step over step using railing for support/ stability due to pain. PT-OP-J Posture/Palpation/Skin Start: 06/07/24 19:11 Freq: Status: Active Protocol: Document 06/11/24 11:35 LRN (Rec: 06/11/24 12:31 LRN [id number]) Posture Evaluation Position Standing Pelvis Posture (L) PSIS Posterior Weight Distribution Balanced Ankle/Foot Posture (R) Calcaneal Inversion Foot Arch (L) Medium Arch,(R) Medium Arch Palpation Assessment Location L knee Palpation Location Tibial plateu medial joint line, medial to patella, medial fat pad Palpation Findings Edema,Tenderness PT-OP-K Range of Motion Start: 06/07/24 19:11 Freq: Status: Active Protocol: Document 06/28/24 09:55 LRN (Rec: 06/28/24 10:39 LRN [id number]) Knee Goniometric Range of Motion Knee Right Knee ROM WFL Yes Patient Position Supine Flexion Active (degrees) 140 Extension Active (degrees) 2 Left Knee ROM WFL Yes Patient Position Supine Flexion Active (degrees) 140 Extension Active (degrees) 2 PT-OP-L Special Tests Start: 06/07/24 19:11 Freq: Status: Active Protocol: Document 06/11/24 11:35 LRN (Rec: 06/11/24 12:31 LRN [id number]) Special Tests Knee Special Tests Posterior Draw Test Results - Jaylene Test Test Results + left Ethan's Test Results - Anterior Draw Test Results - Patellar Grind Test Test Results - PT-OP-M Strength Start: 06/07/24 19:11 Freq: Status: Active Protocol: Document 06/19/24 10:45 LRN (Rec: 06/19/24 11:39 LRN [id number]) Hip Strength Hip Manual Muscle Testing Left External Rotation 4+ Good+ Internal Rotation 5 Normal PT-OP-Q Treatments Start: 06/07/24 19:11 Freq: Status: Active Protocol: Document 06/28/24 09:55 LRN (Rec: 06/28/24 10:39 LRN [id number]) Cardio Equipment Bicycle (Upright) Duration (Minutes) 10 Resistance 2 Seat Position 5 Gym Equipment Cable Column (Body Solid) Leg Extension Details Seat 4 hose, Knee at hole 3 Resistance 10# Reps/Time 10x, 8x, 6x Leg Curl Details Seat 4 hose, Knee at hole 3 Resistance 20# Reps/Time 10x, 8x, 6x Therapeutic Exercises Supine Exercises HEP Supine Exercise Name Heel slides, SKTC, DKTC, SLR, hip AB/AD, bridging Side left Reps/Minutes 10x each Comments Phy & v cuing needed for hip AB Sidelying Exercises Reverse Clamshell Side bilateral Reps/Minutes 10x each Comments phys & v cuing needed HEP Sidelying Exercise Name Hip AD Side left Reps/Minutes 10x Standing Exercises Toe lifts Standing Exercise Name Standing level, back stable ( no sway back), feet 1) fwd, 2) EV, 3) IV. Side bilateral Reps/Minutes 15x each Heel lifts Standing Exercise Name Off step Side bilateral Reps/Minutes 30x Neuro Re-Education Treatment Balance Activities SLS Details L SLS Surface Level Reps/Duration SLS: 20, 40; Foot swings, 2 ' Comments Good Static SLS PT-OP-T Assessment and Plan Start: 06/07/24 19:11 Freq: Status: Active Protocol: Document 06/28/24 09:55 LRN (Rec: 06/28/24 10:39 LRN [id number]) Physical Therapy Assessment Goals Three Impairment Pt limited in ability to ex and squat. Short Term Goal (STG) Pt will improve L knee AROM to normal (2-142?). 06/19/24: L knee AROM: 0-140 deg's. 06/28/24: [place]osea knee AROM:2-140 deg's. STG Duration 07/12/24 (06/19/24: MET GOAL) [facility] Goal (LTG) Pt diane be able to return to prior exercise routine of LE muscle strengthening (like standing squats previously). (06/28/24: Pt goal is 5 miles on bike & 2 miles on TM), walk outdoors and hike ( different terrain). 06/19/24: Pt able to ride ex bike 4 miles. 06/28/24: Pt reported doing ex bike 45' and being sore the next day. LTG Duration 08/10/24 progressing 06/28/24 Two Impairment Activity tolerance limit in her previous walking ability ( 2.25 miles) Short Term Goal (STG) Pt will be able to walk on level ground 1 mile with mild discomfort managed by self care techniques (RICE). STG Duration 07/12/24 [facility] Goal (LTG) Pt will be able to return to her prior function of walking daily 2.25 miles around [facility] [place]. LTG Duration 08/10/24 One Impairment Pt lacks appropriate self care HEP. Short Term Goal (STG) Pt will be educated and will demonstrate proper self care pain management for pain (RICE treatment & nighttime positioning training). 06/19/24: Pt educated in self care pain mgmt of RICE treatment. STG Duration 07/12/24 progressed 06/19/24 (need educ nighttime positioning) [facility] Goal (LTG) Pt will be independent in a self care HEP for L knee/ankle /hip strengthening and mobility ex's. 06/11/24: reviewed HEP: Heel slides (for L knee ROM), L KTC, SLR, Clamshell, supine hip AB, bridging. LTG Duration 08/10/24 progressed 06/11/24 Assessment Summary Assessment Pt is a 73 yo female who presented initially with possible L knee medial meniscus tear (+ Jaylene Test ) Reviewed HEP due to pt not exercisinf while sick the past week. L knee AROM is normal. No pain c/o with aded ex bike @ 70 rpm & Conc strengthening of quads/ hamstrings/ankles. Physical Therapy Plan Frequency and Duration Frequency of Treatment 2x/Week Duration of treatment (weeks) 8 Plan of Care Start Date 06/11/24 Plan of Care End Date 08/10/24 Next Visit Focus/Plan Next Note Type Treatment Note Next Visit Plan Next: Assess response to ex bike, if no pain try TM for distance (1->3 miles), and progress LE strengthening & dyanamic balance. POC: L knee possible medial meniscus tear rehab: Therapeutic Ex (strengthening - low resistance/fili/ROM), Therapeutic Activity ( nighttime positioning), manual therapy (STM/JMT), Balance training, Pt Education (HEP, Edema mgmt).
--- NOTE | 2024-07-05 12:17 | PT.OTN ---
Current Diagnoses Other chronic pain (07/05/24) Pain in left knee (07/05/24) Physical Therapy Treatment Note PT-OP-A Visit Information Start: 06/07/24 19:11 Freq: Status: Active Protocol: Document 07/05/24 11:39 SP (Rec: 07/05/24 12:35 SP [id number]) Out-Patient Physical Therapy Visit Information Visit Information Visit Type Treatment Note Visit Note Pt personal goal 3 miles walking including uneven terrain and 5 miles on bike and incorporating weights to work outs for bone strengthening per physician recommendation. pt 9 min late for appt. Visit Start Time 11:39 Visit Stop Time 12:17 Visit Number 4 Number of TURN OUT Visits 1 Evaluation Information Evaluation Date 06/11/24 Precautions Precautions Cancer history: partial thyroidectomy and found to be cancerous - 1996 - remaining thyroid removed due to [place], Controlled HBP. PT-OP-B Current Condition Start: 06/07/24 19:11 Freq: Status: Active Protocol: Document 06/11/24 11:35 LRN (Rec: 06/11/24 12:31 LRN [id number]) Current Condition History of Current Condition Onset Date 2 months ago. Current Complaints L knee pain, no swelling/ bruising. History of Current Condition When stepped out of spouse's sisal picker felt a burn and didn't worry about it. The L knee felt stiff after sitting, so kept evercising. Over time became more sore around the medial/inferior aspect of the patella and sometimes radiating down the anterior tibia 1/[address] down the leg. Two weeks ago walked aournd the block and that night couldn't walk on the leg. States she has been taking tylenol. Her platform attendant is Dr. Echeverria, but she saw Dr Julien Marie because he MD was on vacation. Prior Treatments and Tests Was told to wear a knee brace, but her movement was restricted, so now she wears a different one that has an opening for the patella. Her DA, BSN in [place] clinic and is at [facility], told her to get a creme (Advil pain reliever ms creme) to put on the knee. Future Testing and Treatments Planned Next is Dr Echeverria visit for regular check up in July. Treatment Goals Patient/Caregiver Goals Pt goals: -be able to walk daily (used to walk 2.25 miles around the [facility] [place]). -do muscle strengthening (like standing squats previously). -independent with a HEP. 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 HBP controlled by meds. [place] history; therefore limited in use of modality treatments. PT-OP-C Subjective Start: 06/07/24 19:11 Freq: Status: Active Protocol: Document 07/05/24 11:39 SP (Rec: 07/05/24 12:35 SP [id number]) OP-PT Subjective Patient Comments Patient Comments Pt reports thinks still recovering from last tx, unsure if was the weights did last tx. She is using equipment at gym, not this past week due to soreness, over L knee, redness and little soreness, using Voltarin. She was told not to take Advil and inquired if Naproxin could be good alternative. TURN OUT suggested as PT-OP-D Balance Start: 06/07/24 19:11 Freq: Status: Active Protocol: Document 06/19/24 10:45 LRN (Rec: 06/19/24 11:39 LRN [id number]) Balance Tests Single Limb Standing Single Limb- Right 60+ secs Single Limb- Left 60 secs PT-OP-G Mobility & Gait Start: 06/07/24 19:11 Freq: Status: Active Protocol: Document 06/11/24 11:35 LRN (Rec: 06/11/24 12:31 LRN [id number]) OP Gait Assessment Gait Gait Assistance Required: Independent Assistive Devices Assistive Device None Gait Deviations General Gait Pattern Antalgic Comments Gait Comments Limping off the LLE. Wears a L LE soft knee brace Stair Climbing Evaluation Comments Stair Climbing Comments Pt reports ambs step over step using railing for support/ stability due to pain. PT-OP-J Posture/Palpation/Skin Start: 06/07/24 19:11 Freq: Status: Active Protocol: Document 06/11/24 11:35 LRN (Rec: 06/11/24 12:31 LRN [id number]) Posture Evaluation Position Standing Pelvis Posture (L) PSIS Posterior Weight Distribution Balanced Ankle/Foot Posture (R) Calcaneal Inversion Foot Arch (L) Medium Arch,(R) Medium Arch Palpation Assessment Location L knee Palpation Location Tibial plateu medial joint line, medial to patella, medial fat pad Palpation Findings Edema,Tenderness PT-OP-K Range of Motion Start: 06/07/24 19:11 Freq: Status: Active Protocol: Document 06/28/24 09:55 LRN (Rec: 06/28/24 10:39 LRN [id number]) Knee Goniometric Range of Motion Knee Right Knee ROM WFL Yes Patient Position Supine Flexion Active (degrees) 140 Extension Active (degrees) 2 Left Knee ROM WFL Yes Patient Position Supine Flexion Active (degrees) 140 Extension Active (degrees) 2 PT-OP-L Special Tests Start: 06/07/24 19:11 Freq: Status: Active Protocol: Document 06/11/24 11:35 LRN (Rec: 06/11/24 12:31 LRN [id number]) Special Tests Knee Special Tests Posterior Draw Test Results - Jaylene Test Test Results + left Ethan's Test Results - Anterior Draw Test Results - Patellar Grind Test Test Results - PT-OP-M Strength Start: 06/07/24 19:11 Freq: Status: Active Protocol: Document 06/19/24 10:45 LRN (Rec: 06/19/24 11:39 LRN [id number]) Hip Strength Hip Manual Muscle Testing Left External Rotation 4+ Good+ Internal Rotation 5 Normal PT-OP-Q Treatments Start: 06/07/24 19:11 Freq: Status: Active Protocol: Document 07/05/24 11:39 SP (Rec: 07/05/24 12:35 SP [id number]) Cardio Equipment Bicycle (Upright) Duration (Minutes) 10 Resistance 2 (not recorded distance) Seat Position 5 (personal goal 5 miles) Other 68-71 RPMs, occ cues upright posture Treadmill Duration (Minutes) 10 Speed 1.2>1.9>2.0. 2.2 Incline 0 (personal goal 3 miles, uneven terrain) Other light 1 UE contact as needed for stabiltiy/center self, no dizziness Gym Equipment Cable Column (Body Solid) Leg Extension Details Back rest 4 hole, Knee at hole 3, top 3 Resistance 10# Reps/Time 10x, 8x, 6x Leg Curl Details Back rest 4 hole, Knee at hole 12, Top 3 Resistance 20# Reps/Time 10x, 8x, 6x Therapeutic Exercises Standing Exercises TKE Standing Exercise Name added to HEP /c hand draw HO Side left Resistance TB #2 teal anchored light higher than knee Reps/Minutes 3 SH x10 Comments cued quad engagment then slow eccentric control, heel down- good response Toe lifts Standing Exercise Name Standing level, back stable ( no sway back), feet 1) fwd, 2) EV, 3) IV. Side bilateral Equipment Used near rail contact PRN Reps/Minutes 15x each Comments EV (lift 4-5th toes), IV (lift 1st toe and arch) Heel lifts Standing Exercise Name Off step Side bilateral Equipment Used rail support, 4 bottom step Reps/Minutes 30x PT-OP-T Assessment and Plan Start: 06/07/24 19:11 Freq: Status: Active Protocol: Document 07/05/24 11:39 SP (Rec: 07/05/24 12:35 SP [id number]) Physical Therapy Assessment Goals Three Impairment Pt limited in ability to ex and squat. Short Term Goal (STG) Pt will improve L knee AROM to normal (2-142?). 06/19/24: L knee AROM: 0-140 deg's. 06/28/24: Hsoea knee AROM:2-140 deg's. STG Duration 07/12/24 (06/19/24: MET GOAL) Economist Research Assistant Goal (LTG) Pt diane be able to return to prior exercise routine of LE muscle strengthening (like standing squats previously). (06/28/24: Pt goal is 5 miles on bike & 2 miles on TM), walk outdoors and hike ( different terrain). 06/19/24: Pt able to ride ex bike 4 miles. 06/28/24: Pt reported doing ex bike 45' and being sore the next day. LTG Duration 08/10/24 progressing 06/28/24 Two Impairment Activity tolerance limit in her previous walking ability ( 2.25 miles) Short Term Goal (STG) Pt will be able to walk on level ground 1 mile with mild discomfort managed by self care techniques (RICE). STG Duration 07/12/24 Custodial Goal (LTG) Pt will be able to return to her prior function of walking daily 2.25 miles around [place]. LTG Duration 08/10/24 One Impairment Pt lacks appropriate self care HEP. Short Term Goal (STG) Pt will be educated and will demonstrate proper self care pain management for pain (RICE treatment & nighttime positioning training). 06/19/24: Pt educated in self care pain mgmt of RICE treatment. STG Duration 07/12/24 progressed 06/19/24 (need educ nighttime positioning) Custodial Goal (LTG) Pt will be independent in a self care HEP for L knee/ankle /hip strengthening and mobility ex's. 06/11/24: reviewed HEP: Heel slides (for L knee ROM), L KTC, SLR, Clamshell, supine hip AB, bridging. 07/05/24: added TKE LTG Duration 08/10/24 progressed 07/05/24 Assessment Summary Assessment Pt good feedback response to ther ex today. No reports of pain. Pt good tolerance to cardio bike and TM today, require contact 1 HR for stability support to allow progression return to longer distance PLOF on trails. Cues for slow eccentric pacing during added resisted TKE added for HEP, this feels good inside my knee. Physical Therapy Plan Frequency and Duration Frequency of Treatment 2x/Week Duration of treatment (weeks) 8 Plan of Care Start Date 06/11/24 Plan of Care End Date 08/10/24 Therapeutic Interventions Therapeutic Interventions Balance Training,Gait Training ,Home Exercise Program,Manual Therapy,Self-Care/Home Management,Soft Tissue Mobilization,Taping, Therapeutic Activities, Therapeutic Exercises Modalities Cold Pack/Ice Massage, Ultrasound Other Therapeutic Interventions Joint mobilization to ankle/ hip as needed. Next Visit Focus/Plan Next Note Type Treatment Note Next Visit Plan Next: Assess response to TKE added, ex bike and TM 10 min each: (progress 1->3 miles), and progress LE strengthening & dyanamic balance. POC: L knee possible medial meniscus tear rehab: Therapeutic Ex (strengthening - low resistance/fili/ROM), Therapeutic Activity ( nighttime positioning), manual therapy (STM/JMT), Balance training, Pt Education (HEP, Edema mgmt).
--- NOTE | 2024-07-09 16:35 | PT-OP ANOTE ---
Per phone conversation the pt states she did not cancel her last appt, noting her next appt is 07/18/24 @ 8:15. The pt was notified that she can try and schedule 2x/wk until end of POC date 08/10/24, as now the schedule has opened the month of July. Pt will call back tomorrow to schedule more visits.
--- NOTE | 2024-07-18 09:00 | PT.OTN ---
Current Diagnoses Other chronic pain (07/18/24) Pain in left knee (07/18/24) Physical Therapy Treatment Note PT-OP-A Visit Information Start: 06/07/24 19:11 Freq: Status: Active Protocol: Document 07/18/24 08:19 SP (Rec: 07/18/24 09:04 SP [id number]) Out-Patient Physical Therapy Visit Information Visit Information Visit Type Treatment Note Visit Note Pt personal goal 3 miles walking including uneven terrain and 5 miles on bike and incorporating weights to work outs for bone strengthening per physician recommendation. Visit Start Time 08:19 Visit Stop Time 09:00 Visit Number 5 Number of CORPORATE DEVELOPMENT OFFICER Visits 2 Evaluation Information Evaluation Date 06/11/24 Precautions Precautions Cancer history: partial thyroidectomy and found to be cancerous - 1994, 1996 - remaining thyroid removed due to [place], Controlled HBP. PT-OP-B Current Condition Start: 06/07/24 19:11 Freq: Status: Active Protocol: Document 06/11/24 11:35 LRN (Rec: 06/11/24 12:31 LRN [id number]) Current Condition History of Current Condition Onset Date 2 months ago. Current Complaints L knee pain, no swelling/ bruising. History of Current Condition When stepped out of spouse's cotton picking machine operator felt a burn and didn't worry about it. The L knee felt stiff after sitting, so kept evercising. Over time became more sore around the medial/inferior aspect of the patella and sometimes radiating down the anterior tibia 1/[address] way down the leg. Two weeks ago walked aournd the block and that night couldn't walk on the leg. States she has been taking tylenol. Her primary class teacher is Dr. Echeverria, but she saw Dr Julien Marie because he MD was on vacation. Prior Treatments and Tests Was told to wear a knee brace, but her movement was restricted, so now she wears a different one that has an opening for the patella. Her DA, BSN in [place] clinic and is at [facility], told her to get a creme (Advil pain reliever ms creme) to put on the knee. Future Testing and Treatments Planned Next is Dr Echeverria visit for regular check up in July. Treatment Goals Patient/Caregiver Goals Pt goals: -be able to walk daily (used to walk 2.25 miles around the [facility] [address]). -do muscle strengthening (like standing squats previously). -independent with a HEP. 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 HBP controlled by meds. [place] history; therefore limited in use of modality treatments. PT-OP-C Subjective Start: 06/07/24 19:11 Freq: Status: Active Protocol: Document 07/18/24 08:19 SP (Rec: 07/18/24 09:04 SP [id number]) OP-PT Subjective Patient Comments Patient Comments Pt reports is walking 2 miles every other day. She thinks she can perform her personal goal 5 miles bike and 3miles walking. She feels she is doing well and almost ready to DC to HEP. Last scheduled appt today, when can get to see PT for DC? PT-OP-D Balance Start: 06/07/24 19:11 Freq: Status: Active Protocol: Document 06/19/24 10:45 LRN (Rec: 06/19/24 11:39 LRN [id number]) Balance Tests Single Limb Standing Single Limb- Right 60+ secs Single Limb- Left 60 secs PT-OP-G Mobility & Gait Start: 06/07/24 19:11 Freq: Status: Active Protocol: Document 06/11/24 11:35 LRN (Rec: 06/11/24 12:31 LRN [id number]) OP Gait Assessment Gait Gait Assistance Required: Independent Assistive Devices Assistive Device None Gait Deviations General Gait Pattern Antalgic Comments Gait Comments Limping off the LLE. Wears a L LE soft knee brace Stair Climbing Evaluation Comments Stair Climbing Comments Pt reports ambs step over step using railing for support/ stability due to pain. PT-OP-J Posture/Palpation/Skin Start: 06/07/24 19:11 Freq: Status: Active Protocol: Document 06/11/24 11:35 LRN (Rec: 06/11/24 12:31 LRN [id number]) Posture Evaluation Position Standing Pelvis Posture (L) PSIS Posterior Weight Distribution Balanced Ankle/Foot Posture (R) Calcaneal Inversion Foot Arch (L) Medium Arch,(R) Medium Arch Palpation Assessment Location L knee Palpation Location Tibial plateu medial joint line, medial to patella, medial fat pad Palpation Findings Edema,Tenderness PT-OP-K Range of Motion Start: 06/07/24 19:11 Freq: Status: Active Protocol: Document 06/28/24 09:55 LRN (Rec: 06/28/24 10:39 LRN [id number]) Knee Goniometric Range of Motion Knee Right Knee ROM WFL Yes Patient Position Supine Flexion Active (degrees) 140 Extension Active (degrees) 2 Left Knee ROM WFL Yes Patient Position Supine Flexion Active (degrees) 140 Extension Active (degrees) 2 PT-OP-L Special Tests Start: 06/07/24 19:11 Freq: Status: Active Protocol: Document 06/11/24 11:35 LRN (Rec: 06/11/24 12:31 LRN [id number]) Special Tests Knee Special Tests Posterior Draw Test Results - Jaylene Test Test Results + left Ethan's Test Results - Anterior Draw Test Results - Patellar Grind Test Test Results - PT-OP-M Strength Start: 06/07/24 19:11 Freq: Status: Active Protocol: Document 06/19/24 10:45 LRN (Rec: 06/19/24 11:39 LRN [id number]) Hip Strength Hip Manual Muscle Testing Left External Rotation 4+ Good+ Internal Rotation 5 Normal PT-OP-Q Treatments Start: 06/07/24 19:11 Freq: Status: Active Protocol: Document 07/18/24 08:19 SP (Rec: 07/18/24 09:04 SP [id number]) Gym Equipment Cable Column (Body Solid) Leg Extension Details Back rest 4 hole, Knee at hole 3, top 3 Resistance (2 plates) Reps/Time 10x3 Leg Curl Details Back rest 4 hole, Knee at hole 12, Top 3 Resistance 2> 3 plates Reps/Time 10x3 Shuttle Recovery Bilateral squat Details cued knee alignment with feet- trial for gym use Resistance 50> 75# 3 navy bands Reps/Time 2x10 reps Therapeutic Exercises Standing Exercises step downs fwd & Lateral Standing Exercise Name Reviewed a self HEP Side bilateral Equipment Used no rail, 8 step Reps/Minutes 2x 10 reps each side and directions Comments no pain lunges Standing Exercise Name reviewed self HEP: near counter Reps/Minutes 10 reps each side Comments no pain reported good form air squats Standing Exercise Name reviewed self HEP: arms front Reps/Minutes 2x10 reps Comments >90deg demonstrated no pain TKE Standing Exercise Name added to HEP /c hand draw HO Side left Resistance TB #2 teal anchored light higher than knee Reps/Minutes 3 SH x10 Comments cued quad engagment then slow eccentric control, heel down- good response Neuro Re-Education Treatment Balance Activities hurdles Details assimulation trail walking Surface uneven surface then added hurdles for Reps/Duration 6 laps fwed over back Comments 2 mats over pods, foam stones with 4 hurdles on top No deviations or LOB, no pain reported SLS Details L SLS Surface Level Reps/Duration SLS: Comments R 60 L 60 PT-OP-T Assessment and Plan Start: 06/07/24 19:11 Freq: Status: Active Protocol: Document 07/18/24 08:19 SP (Rec: 07/18/24 09:04 SP [id number]) Physical Therapy Assessment Goals Three Impairment Pt limited in ability to ex and squat. Short Term Goal (STG) Pt will improve L knee AROM to normal (2-142?). 06/19/24: L knee AROM: 0-140 deg's. 06/28/24: [place]ose[place] knee AROM:2-140 deg's. STG Duration 07/12/24 (06/19/24: MET GOAL) Usp Goal (LTG) Pt diane be able to return to prior exercise routine of LE muscle strengthening (like standing squats previously). (06/28/24: Pt goal is 5 miles on bike & 2 miles on TM), walk outdoors and hike ( different terrain). 06/19/24: Pt able to ride ex bike 4 miles. 06/28/24: Pt reported doing ex bike 45' and being sore the next day. 07/18/24: returns to 2 miles every other day walking, bike 3miles. She thinks can do goal 5 bike and 3 walkign but busy lately have had time. LTG Duration 08/10/24 progressing 07/18/24 Two Impairment Activity tolerance limit in her previous walking ability ( 2.25 miles) Short Term Goal (STG) Pt will be able to walk on level ground 1 mile with mild discomfort managed by self care techniques (MAY). 07/18/24: goal met no pain/ discomfort 2 miles. STG Duration 07/12/24 GOAL MET Neurology Physician Assistant Goal (LTG) Pt will be able to return to her prior function of walking daily 2.[address] [place] [address]. 07/18/24: ProgressingShe is walking 2 miles around neighborhood with incline/ declines ([address] [place] [address]) with no pain and not feeling tired when back. LTG Duration 08/10/24 Progressing 07/18/24 One Impairment Pt lacks appropriate self care HEP. Short Term Goal (STG) Pt will be educated and will demonstrate proper self care pain management for pain (RICE treatment & nighttime positioning training). 06/19/24: Pt educated in self care pain mgmt of RICE treatment. 08/07/24: hasn't taken any pain meds in weeks, verbalized can perform any corrections RICE if needed. STG Duration 07/12/24 GOAL MET 07/18/24 Usp Goal (LTG) Pt will be independent in a self care HEP for L knee/ankle /hip strengthening and mobility ex's. 06/11/24: reviewed HEP: Heel slides (for L knee ROM), L KTC, SLR, Clamshell, supine hip AB, bridging. 07/05/24: added TKE 07/18/24: reviewed HEP: heel slides, side ABD, clamhells, stretching: HS; self added air squats, Mini lunges (like cotton picking machine operator item on floor). Step downs retro and lateral. LTG Duration 08/10/24 progressed 07/18/24 Assessment Summary Assessment Pt almost all goals, good response to progression AROM ther ex and review of self progressed HEP and incorporated uneven sarah for return to trail walking assessment- did fine, see LTG # 1, no pain, good form tiring . Will trial 5 miles bike and 3 miles walk before return to see PT for DC end July. Physical Therapy Plan Frequency and Duration Frequency of Treatment 2x/Week Duration of treatment (weeks) 8 Plan of Care Start Date 06/11/24 Plan of Care End Date 08/10/24 Therapeutic Interventions Therapeutic Interventions Balance Training,Gait Training ,Home Exercise Program,Manual Therapy,Self-Care/Home Management,Soft Tissue Mobilization,Taping, Therapeutic Activities, Therapeutic Exercises Modalities Cold Pack/Ice Massage, Ultrasound Other Therapeutic Interventions Joint mobilization to ankle/ hip as needed. Next Visit Focus/Plan Next Note Type Discharge Summary Next Visit Plan Recheck if met personal goal 5 miles walk, 3 miles bike, continue no knee pain, weight at gym,
--- NOTE | 2024-08-09 10:17 | PT.OTN ---
Current Diagnoses Other chronic pain (08/09/24) Pain in left knee (08/09/24) Physical Therapy Treatment Note PT-OP-A Visit Information Start: 06/07/24 19:11 Freq: Status: Active Protocol: Document 08/09/24 08:18 LRN (Rec: 08/09/24 09:33 LRN [id number]) Out-Patient Physical Therapy Visit Information Visit Information Visit Type Treatment Note Visit Start Time 08:18 Visit Stop Time 08:57 Visit Number 6 Evaluation Information Evaluation Date 06/11/24 Precautions Precautions Cancer history: partial thyroidectomy and found to be cancerous - 1994, 1996 - remaining thyroid removed due to CA, Controlled HBP. PT-OP-B Current Condition Start: 06/07/24 19:11 Freq: Status: Active Protocol: Document 06/11/24 11:35 LRN (Rec: 06/11/24 12:31 LRN [id number]) Current Condition History of Current Condition Onset Date 2 months ago. Current Complaints L knee pain, no swelling/ bruising. 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 The L knee felt stiff after sitting, so kept evercising. Over time became more sore around the medial/inferior aspect of the patella and sometimes radiating down the anterior tibia 1/[address] down the leg. Two weeks ago walked aournd the block and that night couldn't walk on the leg. States she has been taking tylenol. Her ware dresser is Dr. Echeverria, but she saw Dr Julien Marie because he MD was on vacation. Prior Treatments and Tests Was told to wear a knee brace, but her movement was restricted, so now she wears a different one that has an opening for the patella. Her DA, BSN in [place] and is at [facility], told her to get a creme (Advil pain reliever ms creme) to put on the knee. Future Testing and Treatments Planned Next is Dr Echeverria visit for regular check up in July. Treatment Goals Patient/Caregiver Goals Pt goals: -be able to walk daily (used to walk 2.25 miles around the [facility] [place]). -do muscle strengthening (like standing squats previously). -independent with a HEP. 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 HBP controlled by meds. [place] history; therefore limited in use of modality treatments. PT-OP-C Subjective Start: 06/07/24 19:11 Freq: Status: Active Protocol: Document 08/09/24 08:18 LRN (Rec: 08/09/24 09:33 LRN [id number]) OP-PT Subjective Patient Comments Patient Comments States she is back to hiking 2 .5 miles, exercising at gym, and walking the [place]. Has done a 3 mile hike at the gym.Back to exercising and walking the [place]. Patient Questionnaires Lower Extremity Functional Scale LEFS Score 80 LEFS Impairment 0% Impaired (Score 80) PT-OP-D Balance Start: 06/07/24 19:11 Freq: Status: Active Protocol: Document 06/19/24 10:45 LRN (Rec: 06/19/24 11:39 LRN [id number]) Balance Tests Single Limb Standing Single Limb- Right 60+ secs Single Limb- Left 60 secs PT-OP-G Mobility & Gait Start: 06/07/24 19:11 Freq: Status: Active Protocol: Document 06/11/24 11:35 LRN (Rec: 06/11/24 12:31 LRN [id number]) OP Gait Assessment Gait Gait Assistance Required: Independent Assistive Devices Assistive Device None Gait Deviations General Gait Pattern Antalgic Comments Gait Comments Limping off the LLE. Wears a L LE soft knee brace Stair Climbing Evaluation Comments Stair Climbing Comments Pt reports ambs step over step using railing for support/ stability due to pain. PT-OP-J Posture/Palpation/Skin Start: 06/07/24 19:11 Freq: Status: Active Protocol: Document 06/11/24 11:35 LRN (Rec: 06/11/24 12:31 LRN [id number]) Posture Evaluation Position Standing Pelvis Posture (L) PSIS Posterior Weight Distribution Balanced Ankle/Foot Posture (R) Calcaneal Inversion Foot Arch (L) Medium Arch,(R) Medium Arch Palpation Assessment Location L knee Palpation Location Tibial plateu medial joint line, medial to patella, medial fat pad Palpation Findings Edema,Tenderness PT-OP-K Range of Motion Start: 06/07/24 19:11 Freq: Status: Active Protocol: Document 06/28/24 09:55 LRN (Rec: 06/28/24 10:39 LRN [id number]) Knee Goniometric Range of Motion Knee Right Knee ROM WFL Yes Patient Position Supine Flexion Active (degrees) 140 Extension Active (degrees) 2 Left Knee ROM WFL Yes Patient Position Supine Flexion Active (degrees) 140 Extension Active (degrees) 2 PT-OP-L Special Tests Start: 06/07/24 19:11 Freq: Status: Active Protocol: Document 06/11/24 11:35 LRN (Rec: 06/11/24 12:31 LRN [id number]) Special Tests Knee Special Tests Posterior Draw Test Results - Jaylene Test Test Results + left Ethan's Test Results - Anterior Draw Test Results - Patellar Grind Test Test Results - PT-OP-M Strength Start: 06/07/24 19:11 Freq: Status: Active Protocol: Document 06/19/24 10:45 LRN (Rec: 06/19/24 11:39 LRN [id number]) Hip Strength Hip Manual Muscle Testing Left External Rotation 4+ Good+ Internal Rotation 5 Normal PT-OP-Q Treatments Start: 06/07/24 19:11 Freq: Status: Active Protocol: Document 08/09/24 08:18 LRN (Rec: 08/09/24 09:33 LRN [id number]) Cardio Equipment Bicycle (Upright) Duration (Minutes) 12 Resistance 3 & 4 Seat Position 5 (personal goal 5 miles) Other 4.12 miles with varied resistance for distance tolerance Therapeutic Exercises Sitting Exercises Ankle DF/EV/IV strengthening Side bilateral Reps/Minutes 30x each Standing Exercises Soleus stretch Side bilateral Reps/Minutes Combination of holds for 60 Sec stretch Gastroc stretch Side bilateral Reps/Minutes Combination of holds for 60 Sec stretch Self-Care/Home Management Treatment Activities Self-Care/Home Management Activities Issued & reviewed HEP: Standing toe ups/Heel raises; TBand Ankle IV/EV; standing ankle gastroc/soleus stretch. Pt already has TB for ex. Reviewed previousl ex of closed chair knee ext exercise . PT-OP-T Assessment and Plan Start: 06/07/24 19:11 Freq: Status: Active Protocol: Document 08/09/24 08:18 LRN (Rec: 08/09/24 09:33 LRN [id number]) Physical Therapy Assessment Goals Three Impairment Pt limited in ability to ex and squat. Short Term Goal (STG) Pt will improve L knee AROM to normal (2-142?). 06/19/24: L knee AROM: 0-140 deg's. 06/28/24: Hosea knee AROM:2-140 deg's. STG Duration 07/12/24 (06/28/24: MET GOAL) Facilities Planner Goal (LTG) Pt diane be able to return to prior exercise routine of LE muscle strengthening (like standing squats previously). (06/28/24: Pt goal is 5 miles on bike & 2 miles on TM), walk outdoors and hike ( different terrain). 06/19/24: Pt able to ride ex bike 4 miles. 06/28/24: Pt reported doing ex bike 45' and being sore the next day. 07/18/24: returns to 2 miles every other day walking, bike 3miles. She thinks can do goal 5 bike and 3 walkign but busy lately have had time. 08/09/24: Doing 2 miles on TM and 4 miles on the bike. Pt choosing not to do 5 miles today on bike, but plans to work up to 5 miles; happy with current status. LTG Duration 08/10/24 (08/09/24: MET GOAL to pt satisfaction) Two Impairment Activity tolerance limit in her previous walking ability ( 2.25 miles) Short Term Goal (STG) Pt will be able to walk on level ground 1 mile with mild discomfort managed by self care techniques (MAY). 07/18/24: goal met no pain/ discomfort 2 miles. 08/09/24: Walked 2.5 miles on hike and can walk around the [place] w/o pain. STG Duration 07/12/24 (GOAL MET ) Alf Goal (LTG) Pt will be able to return to her prior function of walking daily 2.25 miles around [place] [address]. 07/18/24: ProgressingShe is walking 2 miles around neighborhood with incline/ declines ([address] [place] [address]) with no pain and not feeling tired when back. 08/09/24: Walking 2 miles and around [facility] w/o pain whenever not working (not daily because working). LTG Duration 08/10/24 (08/09/24: MET GOAL to pt satisfaction) One Impairment Pt lacks appropriate self care HEP. Short Term Goal (STG) Pt will be educated and will demonstrate proper self care pain management for pain (RICE treatment & nighttime positioning training). 06/19/24: Pt educated in self care pain mgmt of RICE treatment. 08/07/24: hasn't taken any pain meds in weeks, verbalized can perform any corrections RICE if needed. STG Duration 07/12/24 (GOAL MET 07/18/24) Facilities Planner Goal (LTG) Pt will be independent in a self care HEP for L knee/ankle /hip strengthening and mobility ex's. 06/11/24: reviewed HEP: Heel slides (for L knee ROM), L KTC, SLR, Clamshell, supine hip AB, bridging. 07/05/24: added TKE 07/18/24: reviewed HEP: heel slides, side ABD, clamhells, stretching: HS; self added air squats, Mini lunges (like pickle water pump operator item on floor). Step downs retro and lateral. 08/09/24: HEP: Standing toe ups/Heel raises; TBand Ankle IV/EV; standing ankle gastroc/ soleus stretch. LTG Duration 08/10/24 (08/09/24: MET GOAL) Assessment Summary Assessment Pt is a 73 yo female, attending therapy rehab for possible L knee medial meniscus tear (initially + Jaylene Test). Pt has been able to return to her prior level of function as she is exercising and walking without knee pain and has met all goals to her satisfaction. 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 Pt is being discharged today to her self care HEP. Physical Therapy Plan Discharge Physical Therapy Discharge Reasons Goals Met Discharge Comments Thank you for your referral
== END 2024-08-16 09:50 | disposition home or self-care (01) ==
LOC: PHYS 08:15
PROVIDERS: Family Provider Family Medicine; PCP Family Medicine; Referring Provider Family Medicine; Visit Provider Family Medicine
DX: M25.562 Pain in left knee (principal); G89.29 Other chronic pain
CPT/HCPCS: 97110; 97112; 97162; 97535

== ENCOUNTER → 2024-08-27 15:23 | Outpatient (CLI) | payer MEDICARE, OTHER, SELFPAY ==
--- NOTE | 2024-08-27 15:24 | DI.RAD.S_ITS ---
PROCEDURE: XR DEXA AXIAL SKELETON INDICATIONS: OSTEOPENIA COMPARISON: [facility], CR, XR DEXA AXIAL SKELETON, 01/13/2022, 11:02. [facility], CR, XR DEXA AXIAL SKELETON, 05/29/2019, 12:53. FINDINGS: Lumbar Spine: Bone mineral density 1.039 g/cm2, T score -0.1, no significant change. Left Femoral Neck: Bone mineral density 0.671 g/cm2, T score -1.6. Left Hip: Bone mineral density 0.838 g/cm2, T score -0.9, decreased by 1.8%. Fracture Risk Calculation (when applicable): 10-year fracture risk of a major osteoporotic fracture 11 percent and of a hip fracture 2.3 percent. (T score greater or equal to -1.0 to: NORMAL) (T score from -1.1 to -2.4: OSTEOPENIA) (T score less than or equal to -2.5: OSTEOPOROSIS) IMPRESSION: Low bone mineral density (osteopenia) by WHO classification. Follow-up guidelines as follows: Osteoporosis: Consider a repeat DEXA and Vertebral Fracture Assessment (VFA) exam in 2 years or sooner if medically necessary, to reassess this patient's status. Osteopenia: Consider a repeat DEXA in 2-3 years to reassess this patient's status, or if there is a new clinical indication. Normal: Consider a repeat DEXA in 5 years or sooner, or if there is a new clinical indication. All treatment decisions require clinical judgment and consideration of individual patient factors, including patient preferences, comorbidities, previous drug use, risk factors not captured in the FRAX model (e.g., frailty, falls, vitamin D deficiency, increased bone turnover, interval significant decline in bone density ) and possible under- or over-estimation of fracture risk by FRAX. In addition, the NOF Guide recommends that FDA-approved medical therapies be considered in postmenopausal women and men age >= 50 years with a: * Hip or vertebral (clinical or morphometric) fracture * T-score of <=-2.5 at the spine or hip * Ten-year fracture probability by FRAX of >= 3% for hip fracture or >=20% for major osteoporotic fracture. Dictated by: Antoine Prince M.D. on 08/27/2024 at 16:49 Approved by: Antoine Prince M.D. on 08/27/2024 at 16:50
== END ==
PROVIDERS: Family Provider Family Medicine; PCP Family Medicine; Referring Provider Family Medicine; Visit Provider Family Medicine
DX: M85.89 Other specified disorders of bone density and structure, multiple sites (principal); Z78.0 Asymptomatic menopausal state
CPT/HCPCS: 77080

== ENCOUNTER → 2024-09-04 08:43 | Outpatient (CLI) | payer MEDICARE, OTHER, SELFPAY ==
--- NOTE | 2024-09-04 08:44 | DI.US.S_ITS ---
PROCEDURE: US ABDOMEN COMPLETE INDICATIONS: NONALCOHOLIC FATTY LIVER DISEASE,ELEV LIVER ENZYME TECHNIQUE: Real-time scanning was performed of the abdominal and retroperitoneal organs, with image documentation. COMPARISON: [facility], , US ABDOMEN LIMITED, 09/19/2023, 7:35. FINDINGS: Liver: Liver is normal in size and homogeneous in echotexture. Incidental simple hepatic cyst measuring 3.0 x 2.5 x 2.7 cm adjacent to the IVC. Gallbladder: Surgically absent Biliary ducts: Intrahepatic bile ducts are non-dilated. Extrahepatic bile duct caliber measures 8.5 mm. Normal is 6-7 mm or less in diameter, or 10 mm or less post-cholecystectomy. Kidneys: Right kidney measures 11.5 cm in length. Left kidney measures 11.1 cm in length. No hydronephrosis. No nephrolithiasis. No suspicious solid mass lesion. Spleen: Normal in size. Pancreas: Visualized portions of the pancreas are sonographically normal. Miscellaneous: No free abdominal fluid. Aorta and common iliac arteries are normal in size without aneurysmal dilatation. IVC is patent. IMPRESSION: Abdomen without acute sonographic abnormalities. Status post cholecystectomy. Dictated by: Vern Greenwood M.D. on 09/04/2024 at 13:00 Approved by: Vern Greenwood M.D. on 09/04/2024 at 13:10
== END ==
PROVIDERS: Family Provider Family Medicine; PCP Family Medicine; Referring Provider Family Medicine; Visit Provider Family Medicine
DX: K76.0 Fatty (change of) liver, not elsewhere classified (principal); R74.8 Abnormal levels of other serum enzymes; K76.89 Other specified diseases of liver; Z90.49 Acquired absence of other specified parts of digestive tract
CPT/HCPCS: 76700

== ENCOUNTER → 2024-12-07 12:20 | Outpatient (CLI) | payer MEDICARE, OTHER, SELFPAY ==
--- NOTE | 2024-12-07 12:23 | DI.CT.S_ITS ---
PROCEDURE: CT IVP A/P W/WO INDICATIONS: HEMATURIA TECHNIQUE: Optional 5 mm thick noncontrast images acquired from the diaphragm to the symphysis pubis. After the administration of intravenous contrast, 5 mm thick images acquired from the diaphragm to the symphysis pubis after a 10-minute delay. 2 mm thick coronal and sagittal reformats were then performed of the kidneys and ureters. For radiation dose reduction, the following was used: automated exposure control, adjustment of mA and/or kV according to patient size. COMPARISON: None. FINDINGS: Image quality: Diagnostic. Kidneys and Ureters: Both kidneys are normal in size, without hydronephrosis or nephrolithiasis. No perinephric fat stranding. There is normal bilateral renal enhancement. Renal calyces appear normal in morphology when filled with contrast. Opacified portions of both ureters demonstrate normal caliber Bladder: Bladder wall thickness is normal. No calcified bladder stones. OTHER: Lower chest: Unremarkable. Liver: No solid mass. Gallbladder: Previously resected. Biliary ducts: No biliary dilation. Pancreas: No ductal dilation. Spleen: Size is within normal limits. Adrenal Glands: No adrenal nodules. Stomach and Bowel: Normal colonic caliber, without significant wall thickening. Peritoneum: No abnormal intraperitoneal fluid. No free air. Ventral Wall: No hernia. Abdominal Nodes: No retroperitoneal or mesenteric adenopathy by size criteria. Vessels: Aorta and inferior vena cava are normal in size. PELVIS: Pelvic Organs: Apparent prior hysterectomy.. Pelvic Nodes: No enlarged lymph nodes. Miscellaneous: No inguinal hernias are seen. Extensive diverticulosis but no acute diverticulitis is found. Bones: No aggressive osseous abnormality. IMPRESSION: No nephrolithiasis or filling defects within the opacified renal collecting system or ureters. Dictated by: Adams Sun M.D. on 12/07/2024 at 14:35 Approved by: Adams Sun M.D. on 12/07/2024 at 14:40
[2024-12-07 12:52] LABS: Estimated Glomerular Filt Rate > 60 mL/min (>60)
== END ==
PROVIDERS: Family Provider Family Medicine; PCP Family Medicine; Referring Provider Family Medicine; Visit Provider Family Medicine
DX: N30.01 Acute cystitis with hematuria (principal); N39.46 Mixed incontinence; K57.90 Diverticulosis of intestine, part unspecified, without perforation or abscess without bleeding
CPT/HCPCS: 36415; 74178; 82565; Q9967

== ENCOUNTER → 2024-12-12 14:50 | Outpatient (CLI) | payer MEDICARE, OTHER, SELFPAY | PROVIDERS: PCP Family Medicine; Visit Provider Urology | DX: N30.01 Acute cystitis with hematuria (principal) | CPT/HCPCS: 87077; 87086 ==

== ENCOUNTER → 2024-12-18 12:57 | Outpatient (CLI) | payer MEDICARE, OTHER, SELFPAY ==
[2024-12-18 13:07] LABS: Appearance Urine UA SL CLOUDY; Bilirubin Urine UA NEGATIVE (NEGATIVE); Color Urine UA YELLOW; Glucose Urine UA NEGATIVE (Negative); Ketones Urine UA TRACE (NEGATIVE); Leukocyte Esterase Urine UA NEGATIVE (NEGATIVE); Nitrite Urine UA NEGATIVE (Negative); Occult Blood Urine UA TRACE-INTACT (Negative); Protein Urine UA 1+ (Negative); Specific Gravity Urine UA 1.025 (1.000-1.035); Urobilinogen Urine UA 0.2 E.U./dL (0.2)
[2024-12-18 13:22] LABS: pH Urine UA 6.0 (4.5-8.0)
[2024-12-18 13:26] LABS: Culture Indicated Urine Specimen Cultured
== END ==
PROVIDERS: PCP Family Medicine; Visit Provider Urology
DX: N39.0 Urinary tract infection, site not specified (principal)
CPT/HCPCS: 81001; 87086

== ENCOUNTER → 2025-03-13 10:04 | Outpatient (CLI) | payer MEDICARE, OTHER, SELFPAY | PROVIDERS: PCP Family Medicine; Visit Provider Urology | DX: N39.0 Urinary tract infection, site not specified (principal); R31.0 Gross hematuria; N39.46 Mixed incontinence | CPT/HCPCS: 52000; 81002; 87077; 87086; 87186; 99213 ==

== ENCOUNTER → 2025-05-10 15:51 | Outpatient (CLI) | payer MEDICARE, OTHER, SELFPAY ==
[2025-05-10 16:21] LABS: Appearance Urine UA CLEAR; Bilirubin Urine UA NEGATIVE (NEGATIVE); Color Urine UA YELLOW; Glucose Urine UA NEGATIVE (Negative); Ketones Urine UA NEGATIVE (NEGATIVE); Leukocyte Esterase Urine UA NEGATIVE (NEGATIVE); Nitrite Urine UA NEGATIVE (Negative); Occult Blood Urine UA TRACE-INTACT (Negative); Protein Urine UA NEGATIVE (Negative); Specific Gravity Urine UA 1.015 (1.000-1.035); Urobilinogen Urine UA 0.2 E.U./dL (0.2)
[2025-05-10 16:22] LABS: pH Urine UA 5.5 (4.5-8.0)
[2025-05-10 16:29] LABS: Culture Indicated Urine Cult Not Indicated
== END ==
PROVIDERS: PCP Family Medicine; Referring Provider Urology; Visit Provider Urology
DX: N39.0 Urinary tract infection, site not specified (principal)
CPT/HCPCS: 81001